=== PATIENT | female | born 1975 | race African-American/Black ===

== ENCOUNTER 2020-08-29 10:22 | Inpatient (IN) | payer BC, MEDICARE ==
[~2020-08-29] VITALS: Ht 167.6 cm; Wt 95.5 kg
--- NOTE | 2020-08-29 10:54 | PHYS DOC ---
General Adult EDM: Chief Complaint: SHORTNESS OF BREATH HPI: HPI: History obtained from the patient. Patient is a 45-year-old female with history of sarcoidosis who presents with chief complaint of progressive shortness of breath over the past several days. She notes that she is more short of breath than usual with exertion. She denies any shortness of breath at rest. Denies chest pain. Denies syncope. States this feels similar to previous sarcoidosis flares. She does take prednisone daily. She states when this occurs she typically needs higher steroid dosing. She does note that she recently traveled from [place] to visit family in the area. She is from [place] were all of her cares received. Denies any history of blood clots in the legs or lungs. Denies any swelling to the legs. Denies any known exposure to coronavirus. Denies fevers. Notes a dry cough but states this is baseline for her. Denies any abdominal pain. Denies syncope. Denies any cardiac history or invasive cardiac disease. No nausea no vomiting. Denies diaphoresis. No other complaints. Review of Systems: Review of Systems: Constitutional: Denies fever or chills. [] Eyes: Denies change in visual acuity. [] HENT: Denies nasal congestion or sore throat. [] Respiratory: Positive shortness of breath Cardiovascular: Denies chest pain or edema. [] GI: Denies abdominal pain, nausea, vomiting, bloody stools or diarrhea. [] : Denies dysuria. [] Musculoskeletal: Denies back pain or joint pain. [] Integument: Denies rash. [] Neurologic: Denies headache, focal weakness or sensory changes. [] Endocrine: Denies polyuria or polydipsia. [] Lymphatic: Denies swollen glands. [] Psychiatric: Denies depression or anxiety. [] Heart Score: Risk Factors: Risk Factors: DM, Current or recent (<one month) smoker, HTN, HLP, family history of CAD, obesity. Risk Scores: Score 0 - 3: 2.5% MACE over next 6 weeks - Discharge Home Score 4 - 6: 20.3% MACE over next 6 weeks - Admit for Clinical Observation Score 7 - 10: 72.7% MACE over next 6 weeks - Early Invasive Strategies Physical Exam: PE: Constitutional: Well developed, well nourished, no acute distress, non-toxic appearance. [] HENT: Normocephalic, atraumatic, bilateral external ears normal, oropharynx moist, no oral exudates, nose normal. [] Eyes: PERRLA, EOMI, conjunctiva normal, no discharge. [] Neck: Normal range of motion, no tenderness, supple, no stridor. [] Cardiovascular:Heart rate regular rhythm, no murmur [] Lungs & Thorax: Slight rhonchi noted in the right lung navarro. No wheezes appreciated. Not tachypneic. Speaking in full sentences. 73% on room air. Abdomen: soft, no tenderness, no masses, no pulsatile masses. [] Skin: Warm, dry, no erythema, no rash. [] Back: No tenderness, no CVA tenderness. [] Extremities: No tenderness, no cyanosis, no clubbing, ROM intact, no edema. [] Neurologic: Alert and oriented X 3, normal motor function, normal sensory function, no focal deficits noted. [] Psychologic: Affect normal, judgement normal, mood normal. [] Current Patient Data: Labs: Laboratory Tests Test 08/29/20 10:47 White Blood Count 19.5 x10^3/uL Red Blood Count 3.42 x10^6/uL Hemoglobin 11.3 g/dL Hematocrit 32.2 % Mean Corpuscular Volume 94 fL Mean Corpuscular Hemoglobin 33 pg Mean Corpuscular Hemoglobin Concent 35 g/dL Red Cell Distribution Width 19.8 % Platelet Count 334 x10^3/uL Neutrophils (%) (Auto) 78 % Lymphocytes (%) (Auto) 7 % Monocytes (%) (Auto) 12 % Eosinophils (%) (Auto) 2 % Basophils (%) (Auto) 1 % Neutrophils # (Auto) 15.3 x10^3/uL Lymphocytes # (Auto) 1.3 x10^3/uL Monocytes # (Auto) 2.4 x10^3/uL Eosinophils # (Auto) 0.4 x10^3/uL Basophils # (Auto) 0.1 x10^3/uL Segmented Neutrophils % 81 % Band Neutrophils % 1 % Lymphocytes % 7 % Monocytes % 11 % Nucleated Red Blood Cells 2 Platelet Estimate Adequate Polychromasia Mod Poikilocytosis Slight Anisocytosis Mod Target Cells Mod Schistocytes Few Sodium Level 140 mmol/L Potassium Level 3.4 mmol/L Chloride Level 102 mmol/L Carbon Dioxide Level 28 mmol/L Anion Gap 10 Blood Urea Nitrogen 19 mg/dL Creatinine 1.3 mg/dL Estimated GFR (Cockcroft-Gault) 53.4 BUN/Creatinine Ratio 15 Glucose Level 140 mg/dL Lactic Acid Level 2.0 mmol/L Calcium Level 8.7 mg/dL Total Bilirubin 2.8 mg/dL Aspartate Amino Transf (AST/SGOT) 31 U/L Alanine Aminotransferase (ALT/SGPT) 37 U/L Alkaline Phosphatase 72 U/L Troponin I Quantitative 0.162 ng/mL XE-Ocl-M-Type Natriuretic Peptide 6540 pg/mL Total Protein 8.1 g/dL Albumin 3.4 g/dL Albumin/Globulin Ratio 0.7 Current Medications Medications (Trade) Dose Ordered Sig/Jan Route PRN Reason Start Time Stop Time Status Last Admin Dose Admin Sodium Chloride 1,000 ml @ 1,000 mls/hr 1X ONCE IV 08/29/20 11:30 08/29/20 12:29 DC Iohexol (Omnipaque 350 Mg/ml) 75 ml 1X ONCE IV 08/29/20 11:45 08/29/20 11:46 DC 08/29/20 11:47 Info (CONTRAST GIVEN -- Rx MONITORING) 1 each PRN DAILY PRN MC SEE COMMENTS 08/29/20 11:45 08/31/20 11:44 Vancomycin HCl 2 gm/Sodium Chloride 500 ml @ 250 mls/hr 1X ONCE IV 08/29/20 13:00 08/29/20 14:59 Cefepime HCl (Maxipime) 1 gm 1X ONCE IVP 08/29/20 12:45 08/29/20 12:46 Vital Signs: Vital Signs Date Time Temp Pulse Resp B/P (MAP) Pulse Ox O2 Delivery O2 Flow Rate FiO2 08/29/20 11:07 98.8 125 20 133/59 (83) 73 Room Air 98.8 EKG: EKG: [] EKG consistent with sinus tachycardia. Ventricular rate of 121 bpm. [place] normal. Q waves noted in lead III. No acute ST segment elevation appreciated. Radiology/Procedures: Radiology/Procedures: [facility] [address] [place] [address] IMAGING REPORT Signed PATIENT: NOELLE OBREGON ACCOUNT: [id number] : 1975 LOCATION: ER AGE: 45 SEX: F EXAM STATUS: REG ER ORD. PHYSICIAN: WILFREDO ELY DO REASON: SOB, recent travel. concern for PE PROCEDURE: CT ANGIOGRAPHY CHEST Exam performed: CT pulmonary angiogram of the chest with contrast. Date: 08/29/2020. Comparison:One view chest from earlier today Indication: Shortness of breath, recent travel, concern for PE Technique: Contiguous helical acquisitions are obtained through the chest during intravenous administration of [ 75 ] cc of [ Omnipaque 350 ] . [Sagittal and coronal MIP images were obtained and reviewed Findings: The study is somewhat limited due to motion blur and poor inspiratory effort. The structures at the thoracic inlet including both lobes of the thyroid gland appear normal. Pulmonary arterial opacification is adequate to evaluate for pulmonary embolus. There is no evidence for pulmonary embolism. The apparent cardiomegaly could be accentuated due to poor inspiration. No pericardial effusion is seen. No mediastinal or hilar lymphadenopathy is seen. Hazy groundglass opacities are seen in both upper lobes, greater on the right as well as in both lower lobes. There is a calcified nodule in the right upper lobe perhaps related to remote granulomatous infection. There is no pleural effusion or pneumothorax. Upper abdominal structures appear unremarkable. Osseous structures appear intact. Impression: 1. Study is negative for pulmonary embolism. 2. Diffuse groundglass opacities scattered throughout both lungs as outlined above. PQRS Compliance Statement: One or more of the following individualized dose reduction techniques were utilized for this examination: 1. Automated exposure control 2. Adjustment of the mA and/or kV according to patient size 3. Use of iterative reconstruction technique Electronically signed by: Ramona Louis MD (08/29/2020 12:08 PM) [facility] DICTATED and SIGNED BY: RAMONA LOUIS MD DATE: 08/29/20 1208 [] Course & Med Decision Making: Course & Med Decision Making Pertinent Labs and Imaging studies reviewed. (See chart for details) [] Patient is a very pleasant 45-year-old female who presents with chief complaint of exertional shortness of breath. She does note a history of sarcoidosis but states this feels worse than usual. Initial oxygenation notable for 73% on room air. She does not use oxygen at home but did improve to 96% on 2 L nasal cannula. No wheezes appreciated on auscultation. Chest x-ray does show concern for bilateral infiltrates. She does state chronic prednisone for sarcoidosis. Given the potential for immunocompromisation vancomycin and cefepime will be administered. Blood cultures obtained and pending. She does have an elevated troponin in the setting of APRIL. This could be related to her current infectious state and is likely type II NSTEMI versus acute coronary event. She denies any chest pain. Fluids to be administered. She remains hemodynamically and clinically stable on 2 L nasal cannula. Patient will be hospitalized for further care. COVID swab obtained and pending. COVID-19 CRITERIA: The patient was evaluated during the global COVID-19 pandemic, and that diagnosis was suspected/considered upon their initial presentation. Their evaluation, treatment and testing was consistent with current guidelines for patients who present with complaints or symptoms that may be related to COVID-19. Dragabbie Disclaimer: Dragon Disclaimer: This electronic medical record was generated, in whole or in part, using a voice recognition dictation system. Departure Departure Impression: Primary Impression: Community acquired pneumonia Qualified Codes: J18.9 - Pneumonia, unspecified organism Additional Impressions: Sarcoidosis NSTEMI (non-ST elevated myocardial infarction) APRIL (acute kidney injury) Disposition: ADMITTED INPATIENT Condition: STABLE Referrals: UNKNOWN PCP NAME (PCP) WILFREDO ELY DO Aug 29, 2020 10:54
[2020-08-29 11:10] LABS: CALCIUM 8.7 mg/dL (8.5-10.1); CREATININE 1.3 mg/dL (0.6-1.0); GFR 53.4; POTASSIUM 3.4 mmol/L (3.5-5.1)
[2020-08-29 11:14] LABS: BASO # 0.1 x10^3/uL (0.0-0.2); BASO % 1 % (0-3); EOS # 0.4 x10^3/uL (0.0-0.7); EOS % 2 % (0-3); HEMATOCRIT 32.2 % (36.0-47.0); HEMOGLOBIN 11.3 g/dL (12.0-15.5); LYMPH # 1.3 x10^3/uL (1.0-4.8); LYMPH % 7 % (24-48); MEAN CORPUSCULAR HEMOGLOBIN 33 pg (25-35); MEAN CORPUSCULAR HGB CONC 35 g/dL (31-37); MEAN CORPUSCULAR VOLUME 94 fL (79-100); MONO # 2.4 x10^3/uL (0.0-1.1); MONO % 12 % (0-9); NEUT # 15.3 x10^3/uL (1.8-7.7); NEUT % 78 % (31-73); PLATELET COUNT 334 x10^3/uL (140-400); RED BLOOD COUNT 3.42 x10^6/uL (3.50-5.40); RED CELL DISTRIBUTION WIDTH 19.8 % (11.5-14.5); WHITE BLOOD COUNT 19.5 x10^3/uL (4.0-11.0)
[2020-08-29 11:16] LABS: ALBUMIN 3.4 g/dL (3.4-5.0); ALBUMIN/GLOBULIN RATIO 0.7 (1.0-1.7); TOTAL BILIRUBIN 2.8 mg/dL (0.2-1.0); TOTAL PROTEIN 8.1 g/dL (6.4-8.2)
--- NOTE | 2020-08-29 11:23 | RAD ---
Exam performed: One view chest HISTORY: Shortness of breath. DATE OF SERVICE: 08/29/2020. COMPARISON: None available FINDINGS: Heart size and mediastinal silhouette is within limits of normal. Pulmonary vascularity appears unremarkable. Diffuse bilateral perihilar airspace opacities are seen. There are diffuse prominent interstitial markings in both lungs. No pleural effusion or pneumothorax is seen. IMPRESSION: Diffuse bilateral perihilar airspace and interstitial opacities likely infiltrates. Electronically signed by: Ramona Louis MD (08/29/2020 11:20 AM) [facility]
[2020-08-29] MEDS ORDERED: IV NORMAL SALINE 1000ML BAG 1,000 ML IV ONE (11:30)
--- NOTE | 2020-08-29 11:38 | EKG ---
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
[2020-08-29 11:44] LABS: % BANDS 1 % (0-9); % LYMPHS 7 % (24-48); % MONOS 11 % (0-10); NUCLEATED RBC 2
[2020-08-29 11:45] LABS: % SEGS 81 % (35-66); PLT ESTIMATE ADEQUATE (ADEQUATE)
[2020-08-29] MEDS ORDERED: CONTRAST GIVEN. MC PRN (11:45)
[2020-08-29] MEDS ORDERED: IOHEXOL 350 MG/ML 100 ML VIAL. IV ONE (11:45)
[2020-08-29 11:49] LABS: POIKILOCYTOSIS SLIGHT; POLYCHROMASIA MOD
[2020-08-29 11:50] LABS: TARGET CELLS MOD
[2020-08-29 12:03] LABS: SCHISTOCYTES FEW
--- NOTE | 2020-08-29 12:11 | RAD ---
Exam performed: CT pulmonary angiogram of the chest with contrast. Date: 08/29/2020. Comparison:One view chest from earlier today Indication: Shortness of breath, recent travel, concern for PE Technique: Contiguous helical acquisitions are obtained through the chest during intravenous administration of [ 75 ] cc of [ Omnipaque 350 ] . [Sagittal and coronal MIP images were obtained and reviewed Findings: The study is somewhat limited due to motion blur and poor inspiratory effort. The structures at the thoracic inlet including both lobes of the thyroid gland appear normal. Pulmonary arterial opacification is adequate to evaluate for pulmonary embolus. There is no evidence for pulmonary embolism. The apparent cardiomegaly could be accentuated due to poor inspiration. No pericardial effusion is seen. No mediastinal or hilar lymphadenopathy is seen. Hazy groundglass opacities are seen in both upper lobes, greater on the right as well as in both lower lobes. There is a calcified nodule in the right upper lobe perhaps related to remote granulomatous infection. There is no pleural effusion or pneumothorax. Upper abdominal structures appear unremarkable. Osseous structures appear intact. Impression: 1. Study is negative for pulmonary embolism. 2. Diffuse groundglass opacities scattered throughout both lungs as outlined above. PQRS Compliance Statement: One or more of the following individualized dose reduction techniques were utilized for this examination: 1. Automated exposure control 2. Adjustment of the mA and/or kV according to patient size 3. Use of iterative reconstruction technique Electronically signed by: Ramona Louis MD (08/29/2020 12:08 PM) [facility]
[2020-08-29] MEDS ORDERED: ONDANSETRON PF 4 MG/2 ML VIAL. IV PRN ×2 (12:45→13:00)
[2020-08-29] MEDS ORDERED: CEFEPIME HCL IV Push 1 GM VIAL. IVP ONE (12:45)
[2020-08-29] MEDS ORDERED: MORPHINE SULFATE 4 MG/ML VIAL. IV PRN (12:45)
--- NOTE | 2020-08-29 12:58 | PDOC1 ---
History and Physical Date of Admission Date of Admission DATE: 08/29/20 TIME: 12:50 Identification/Chief Complaint Chief Complaint Shortness of breath Source Source: Patient History of Present Illness History of Present Illness Ms Sorto is a 45yo F w/ PMHx sarcoidosis, HTN who presents with chief complaint of progressive shortness of breath over the past several days. She notes that she is more short of breath than usual with exertion. She denies any shortness of breath at rest. Denies chest pain. Denies syncope. States this feels similar to previous sarcoidosis flares. She does take prednisone daily. She does note that she recently traveled from [place] to visit family in the area, she drove herself. No history of VTE. Denies any swelling to the legs. Denies any known exposure to coronavirus. Denies fevers.Denies any abdominal pain. Denies syncope. D enies any cardiac history or invasive cardiac disease. No nausea no vomiting. Denies diaphoresis. No other complaints. Hypoxic to 73% on room air in ED. She does not wear home O2. CXR with diffuse bilateral interstitial opacities. CTPA negative for PE, did show diffuse groundglass opacities scattered throughout both lungs. Labs significant for WBC 19.5, Hb 11.3, platelets 334, BNP 6540, troponin 0.162, bilirubin 2.8, NA 140, K3.4, BUN 11, CR 1.3, glucose 140, lactic acid 2, albumin 3.4 EKG consistent with sinus tachycardia. Ventricular rate of 121 bpm. [place] normal. Q waves noted in lead III. No acute ST segment elevation appreciated. Admitted for further care Past Medical History Cardiovascular: HTN Pulmonary: Other (Sarcoidosis) Current Problem List Problem List Problems Medical Problems: (1) APRIL (acute kidney injury) Status: Acute (2) Community acquired pneumonia Status: Acute (3) NSTEMI (non-ST elevated myocardial infarction) Status: Acute (4) Sarcoidosis Status: Acute Current Medications Current Medications Current Medications Sodium Chloride 1,000 ml @ 1,000 mls/hr 1X ONCE IV ; Start 08/29/20 at 11:30; Stop 08/29/20 at 12:29; Status DC Iohexol (Omnipaque 350 Mg/ml) 75 ml 1X ONCE IV Last administered on 08/29/20at 11:47; Start 08/29/20 at 11:45; Stop 08/29/20 at 11:46; Status DC Info (CONTRAST GIVEN -- Rx MONITORING) 1 each PRN DAILY PRN MC SEE COMMENTS; Start 08/29/20 at 11:45; Stop 08/31/20 at 11:44 Vancomycin HCl 2 gm/Sodium Chloride 500 ml @ 250 mls/hr 1X ONCE IV ; Start 08/29/20 at 13:00; Stop 08/29/20 at 14:59 Cefepime HCl (Maxipime) 1 gm 1X ONCE IVP ; Start 08/29/20 at 12:45; Stop 08/29/20 at 12:46; Status DC Ondansetron HCl (Zofran) 4 mg PRN Q8HRS PRN IV NAUSEA/VOMITING; Start 08/29/20 at 12:45; Stop 08/30/20 at 12:44 Morphine Sulfate (Morphine Sulfate) 4 mg PRN Q2HR PRN IV PAIN; Start 08/29/20 at 12:45; Stop 08/30/20 at 12:44 Allergies Allergies: Coded Allergies: Sulfa (Sulfonamide Antibiotics) (Verified Allergy, Intermediate, 08/29/20) peanut (Verified Allergy, Intermediate, 08/29/20) ROS General: YES: Fatigue, Malaise; No: Chills, Night Sweats, Appetite, Other PSYCHOLOGICAL ROS: YES: Anxiety; No: Behavioral Disorder, Concentration difficultie, Decreased libido, Depression, Disorientation, Hallucinations, Hostility, Irritablity, Memory difficulties, Mood Swings, Obsessive thoughts, Physical abuse, Sexual abuse, Sleep disturbances, Suicidal ideation, Other Eyes: No Blurry vision, No Decreased vision, No Double vision, No Dry eyes, No Excessive tearing, No Eye Pain, No Itchy Eyes, No Loss of vision, No Photophobia, No Scotomata, No Uses contacts, No Uses glasses, No Other HEENT: No: Heacaches, Visual Changes, Hearing change, Nasal congestion, Nasal discharge, Oral lesions, Sinus pain, Sore Throat, Epistaxis, Sneezing, Snoring, Tinnitus, Vertigo, Vocal changes, Other ALLERGY AND IMMUNOLOGY: No: Hives, Insect Bite Sensitivity, Itchy/Watery Eyes, Nasal Congestion, Post Nasal Drip, Seasonal Allergies, Other Hematological and Lymphatic: No: Bleeding Problems, Blood Clots, Blood Transfusions, Brusing, Night Sweats, Pallor, Swollen Lymph Nodes, Other ENDOCRINE: No: Breast Changes, Galactorrhea, Hair Pattern Changes, Hot Flashes, Malaise/lethargy, Mood Swings, Palpitations, Polydipsia/polyuria, Skin Changes, Temperature Intolerance, Unexpected Weight Changes, Other Breast: No New/Changing Breast Lumps, No Nipple changes, No Nipple discharge, No Other Respiratory: YES: Cough, Shortness of breath, SOB with excertion, Tachypnea, Wheezing; No: Hemoptysis, Orthopnea, Pleuritic Pain, Sputum Changes, Stridor, Other Cardiovascular: No Chest Pain, No Palpitations, No Orthopnea, No Paroxysmal Noc. Dyspnea, No Edema, No Lt Headedness, No Other Gastrointestinal: No Nausea, No Vomiting, No Abdominal Pain, No Diarrhea, No Constipation, No Melena, No Hematochezia, No Other Genitourinary: No Dysuria, No Frequency, No Incontinence, No Hematuria, No Retention, No Discharge, No Urgency, No Pain, No Flank Pain, No Other, No , No , No , No , No , No , No Musculoskeletal: No Gait Disturbance, No Joint Pain, No Joint Stiffness, No Joint Swelling, No Muscle Pain, No Muscular Weakness, No Pain In:, No Swelling In:, No Other Neurological: No Behavorial Changes, No Bowel/Bladder ControlChng, No Confusion, No Dizziness, No Gait Disturbance, No Headaches, No Impaired Coord/balance, No Memory Loss, No Numbness/Tingling, No Seizures, No Speech Problems, No Tremors, No Visual Changes, No Weakness, No Other Skin: No Dry Skin, No Eczema, No Hair Changes, No Lumps, No Mole Changes, No Mottling, No Nail Changes, No Pruritus, No Rash, No Skin Lesion Changes, No Other, No Acne Physical Exam General: Alert, Oriented X3, Cooperative, moderate distress HEENT: Atraumatic, PERRLA, EOMI, Mucous membr. moist/pink Lungs: Other (coarse rhonchi and fine crackles bilaterally) Heart: S1S2, RRR, no thrills, no rubs, no gallops, no murmurs Abdomen: Normal bowel sounds, Soft, No tenderness, No hepatosplenomegaly, No m asses Rectal Exam: not examined Extremities: No clubbing, No cyanosis, No edema, Normal pulses, No tenderness/swelling Skin: No rashes, No breakdown, No significant lesion Neuro: Normal gait, Normal speech, Strength at 5/5 X4 ext, Normal tone, Sensation intact, Cranial nerves 3-12 NL, Reflexes 2+ Psych/Mental Status: Mental status NL, Mood NL Vitals Vitals Vital Signs Date Time Temp Pulse Resp B/P (MAP) Pulse Ox O2 Delivery O2 Flow Rate FiO2 08/29/20 11:07 98.8 125 20 133/59 (83) 73 Room Air 98.8 Labs Labs Laboratory Tests Test 08/29/20 10:47 White Blood Count 19.5 x10^3/uL (4.0-11.0) Red Blood Count 3.42 x10^6/uL (3.50-5.40) Hemoglobin 11.3 g/dL (12.0-15.5) Hematocrit 32.2 % (36.0-47.0) Mean Corpuscular Volume 94 fL (79-100) Mean Corpuscular Hemoglobin 33 pg (25-35) Mean Corpuscular Hemoglobin Concent 35 g/dL (31-37) Red Cell Distribution Width 19.8 % (11.5-14.5) Platelet Count 334 x10^3/uL (140-400) Neutrophils (%) (Auto) 78 % (31-73) Lymphocytes (%) (Auto) 7 % (24-48) Monocytes (%) (Auto) 12 % (0-9) Eosinophils (%) (Auto) 2 % (0-3) Basophils (%) (Auto) 1 % (0-3) Neutrophils # (Auto) 15.3 x10^3/uL (1.8-7.7) Lymphocytes # (Auto) 1.3 x10^3/uL (1.0-4.8) Monocytes # (Auto) 2.4 x10^3/uL (0.0-1.1) Eosinophils # (Auto) 0.4 x10^3/uL (0.0-0.7) Basophils # (Auto) 0.1 x10^3/uL (0.0-0.2) Segmented Neutrophils % 81 % (35-66) Band Neutrophils % 1 % (0-9) Lymphocytes % 7 % (24-48) Monocytes % 11 % (0-10) Nucleated Red Blood Cells 2 Platelet Estimate Adequate (ADEQUATE) Polychromasia Mod Poikilocytosis Slight Anisocytosis Mod Target Cells Mod Schistocytes Few Sodium Level 140 mmol/L (136-145) Potassium Level 3.4 mmol/L (3.5-5.1) Chloride Level 102 mmol/L (98-107) Carbon Dioxide Level 28 mmol/L (21-32) Anion Gap 10 (6-14) Blood Urea Nitrogen 19 mg/dL (7-20) Creatinine 1.3 mg/dL (0.6-1.0) Estimated GFR (Cockcroft-Gault) 53.4 BUN/Creatinine Ratio 15 (6-20) Glucose Level 140 mg/dL (70-99) Lactic Acid Level 2.0 mmol/L (0.4-2.0) Calcium Level 8.7 mg/dL (8.5-10.1) Total Bilirubin 2.8 mg/dL (0.2-1.0) Aspartate Amino Transf (AST/SGOT) 31 U/L (15-37) Alanine Aminotransferase (ALT/SGPT) 37 U/L (14-59) Alkaline Phosphatase 72 U/L (46-116) Troponin I Quantitative 0.162 ng/mL (0.000-0.055) MC-Iwc-T-Type Natriuretic Peptide 6540 pg/mL (0-124) Total Protein 8.1 g/dL (6.4-8.2) Albumin 3.4 g/dL (3.4-5.0) Albumin/Globulin Ratio 0.7 (1.0-1.7) Laboratory Tests Test 08/29/20 10:47 White Blood Count 19.5 x10^3/uL (4.0-11.0) Red Blood Count 3.42 x10^6/uL (3.50-5.40) Hemoglobin 11.3 g/dL (12.0-15.5) Hematocrit 32.2 % (36.0-47.0) Mean Corpuscular Volume 94 fL (79-100) Mean Corpuscular Hemoglobin 33 pg (25-35) Mean Corpuscular Hemoglobin Concent 35 g/dL (31-37) Red Cell Distribution Width 19.8 % (11.5-14.5) Platelet Count 334 x10^3/uL (140-400) Neutrophils (%) (Auto) 78 % (31-73) Lymphocytes (%) (Auto) 7 % (24-48) Monocytes (%) (Auto) 12 % (0-9) Eosinophils (%) (Auto) 2 % (0-3) Basophils (%) (Auto) 1 % (0-3) Neutrophils # (Auto) 15.3 x10^3/uL (1.8-7.7) Lymphocytes # (Auto) 1.3 x10^3/uL (1.0-4.8) Monocytes # (Auto) 2.4 x10^3/uL (0.0-1.1) Eosinophils # (Auto) 0.4 x10^3/uL (0.0-0.7) Basophils # (Auto) 0.1 x10^3/uL (0.0-0.2) Segmented Neutrophils % 81 % (35-66) Band Neutrophils % 1 % (0-9) Lymphocytes % 7 % (24-48) Monocytes % 11 % (0-10) Nucleated Red Blood Cells 2 Platelet Estimate Adequate (ADEQUATE) Polychromasia Mod Poikilocytosis Slight Anisocytosis Mod Target Cells Mod Schistocytes Few Sodium Level 140 mmol/L (136-145) Potassium Level 3.4 mmol/L (3.5-5.1) Chloride Level 102 mmol/L (98-107) Carbon Dioxide Level 28 mmol/L (21-32) Anion Gap 10 (6-14) Blood Urea Nitrogen 19 mg/dL (7-20) Creatinine 1.3 mg/dL (0.6-1.0) Estimated GFR (Cockcroft-Gault) 53.4 BUN/Creatinine Ratio 15 (6-20) Glucose Level 140 mg/dL (70-99) Lactic Acid Level 2.0 mmol/L (0.4-2.0) Calcium Level 8.7 mg/dL (8.5-10.1) Total Bilirubin 2.8 mg/dL (0.2-1.0) Aspartate Amino Transf (AST/SGOT) 31 U/L (15-37) Alanine Aminotransferase (ALT/SGPT) 37 U/L (14-59) Alkaline Phosphatase 72 U/L (46-116) Troponin I Quantitative 0.162 ng/mL (0.000-0.055) KM-Bew-A-Type Natriuretic Peptide 6540 pg/mL (0-124) Total Protein 8.1 g/dL (6.4-8.2) Albumin 3.4 g/dL (3.4-5.0) Albumin/Globulin Ratio 0.7 (1.0-1.7) Images Images CXR: Heart size and mediastinal silhouette is within limits of normal. Pulmonary vascularity appears unremarkable. Diffuse bilateral perihilar airspace opacities are seen. There are diffuse prominent interstitial markings in both lungs. No pleural effusion or pneumothorax is seen. IMPRESSION: Diffuse bilateral perihilar airspace and interstitial opacities likely infiltrates. CTPA: The study is somewhat limited due to motion blur and poor inspiratory effort. The structures at the thoracic inlet including both lobes of the thyroid gland appear normal. Pulmonary arterial opacification is adequate to evaluate for pulmonary embolus. There is no evidence for pulmonary embolism. The apparent cardiomegaly could be accentuated due to poor inspiration. No pericardial effusion is seen. No mediastinal or hilar lymphadenopathy is seen. Hazy groundglass opacities are seen in both upper lobes, greater on the right as well as in both lower lobes. There is a calcified nodule in the right upper lobe perhaps related to remote granulomatous infection. There is no pleural effusion or pneumothorax. Upper abdominal structures appear unremarkable. Osseous structures appear intact. Impression: 1. Study is negative for pulmonary embolism. 2. Diffuse groundglass opacities scattered throughout both lungs as outlined above. VTE Prophylaxis Ordered VTE Prophylaxis Devices: Yes VTE Pharmacological Prophylaxi: Yes Assessment/Plan Assessment/Plan A/P: Acute hypoxic respiratory failure - likely 2/2 sarcoidosis flare +/- community acquired bacterial pneumonia, high risk for likely gram negatives. Wean O2 as tolerated Sarcoidosis - with flare. Will give IV steroids, cover with antibiotis. Consult pulm Chest pain - atypical for cardiac pain, though with elevated troponin will trend. Likely 2/2 sarcoidosis Elevated troponin - likely demand ischemia given profound hypoxia. Will trend HTN - cont BB and CCB home meds Hypokalemia - replace,check mag level APRIL - likely vasomotor nephropathy, will hydrate. Sepsis - with Leukocytosis - with tachycardia meets SIRS criteria, likely pulmonary infection. Will give IVF for SEPSIS, POA and empiric antibiotics Anemia - will check iron studies, likely of chronic disease Low suspicion for COVID 19 FEN - General diet PPX - lovenox FULL CODE DIspo - inpatient Justifications for Admission Other Justification ROX CHARLTON MD Aug 29, 2020 12:58
[2020-08-29] MEDS ORDERED: VANCOMYCIN 2 GM in IV NORMAL SALINE 500ML BAG 500 ML IV ONE (13:00)
[2020-08-29] MEDS ORDERED: POTASSIUM BICARB 10 MEQ EFFERVESCENT TABLET. PO ONE (13:00)
[2020-08-29] MEDS: methylPREDNISolone SOD SUCC PF 40 MG/ML VIAL. IV SCH ×3 (13:19→22:31)
--- NOTE | 2020-08-29 17:06 | NUR ---
Pt arrived on unit from ED via bed at 1650. Pt oriented to room and call light, denying pain at this time. Pt on 3L NC. Will monitor pt closely.
[2020-08-29] MEDS ORDERED: PRED5TAB PO (17:41)
[2020-08-29] MEDS ORDERED: METO-247 PO (17:41)
[2020-08-29] MEDS ORDERED: DILT240T8 PO (17:41)
[2020-08-29] MEDS ORDERED: XOPENEX0.63 MG/3 NEB (17:42)
[2020-08-29] MEDS ORDERED: LEVA1.2527 NEB (17:44)
[2020-08-29] MEDS ORDERED: NORE0.357 PO (17:51)
[2020-08-29 17:53] VITALS: BP 153/87
--- NOTE | 2020-08-29 18:05 | NUR ---
This RN notified Dr. Rick of positive sepsis screening. Orders received to hold off on IV fluids until he sees patient in person. Will hold fluids until further orders received.
[2020-08-29] MEDS ORDERED: FLU VACC QS 2020-21(6MOS+)/PF 0.5 ML SYRINGE. VAX IM ONE (18:30)
[2020-08-29] MEDS ORDERED: METOPROLOL TARTRATE 5 MG/5 ML VIAL. IVP PRN (18:45)
[2020-08-29] MEDS ORDERED: ALBUTEROL SULFATE 2.5 MG/3 ML NEBU. NEB PRN (18:45)
[2020-08-29 19:00] VITALS: BP 143/81
[2020-08-29] MEDS: METOPROLOL SUCC 24HR ER 100 MG TAB.ER.24H. PO SCH (19:13)
[2020-08-29] MEDS: IV NORMAL SALINE 1000ML BAG 1,000 ML IV SCH ×2 (19:13→22:57)
[2020-08-29] MEDS: guaiFENesin DM 200MG/20MG 10 ML SYRUP PO PRN (22:23)
[2020-08-29] MEDS: ENOXAPARIN 40 MG/0.4 ML SYRINGE. SQ SCH ×2 (22:24→22:50)
[2020-08-29 22:58] VITALS: BP 129/75
[2020-08-29] MEDS ORDERED: MAGNESIUM SULFATE 2GM 50 ML IV ONE (23:00)
[2020-08-29 23:03] VITALS: BP 145/79
[2020-08-30] MEDS: IV NORMAL SALINE 1000ML BAG 1,000 ML IV SCH (05:01)
[2020-08-30] MEDS: methylPREDNISolone SOD SUCC PF 40 MG/ML VIAL. IV SCH ×4 (05:01→23:28)
[2020-08-30 07:15] VITALS: BP 125/78
[2020-08-30 07:50] LABS: BASO % 0 % (0-3); EOS % 0 % (0-3); HEMATOCRIT 28.6 % (36.0-47.0); LYMPH # 0.4 x10^3/uL (1.0-4.8); LYMPH % 3 % (24-48); MEAN CORPUSCULAR HEMOGLOBIN 33 pg (25-35); MEAN CORPUSCULAR HGB CONC 35 g/dL (31-37); MEAN CORPUSCULAR VOLUME 94 fL (79-100); MONO # 0.6 x10^3/uL (0.0-1.1); MONO % 4 % (0-9); NEUT # 13.3 x10^3/uL (1.8-7.7); NEUT % 93 % (31-73); PLATELET COUNT 310 x10^3/uL (140-400); RED BLOOD COUNT 3.05 x10^6/uL (3.50-5.40); RED CELL DISTRIBUTION WIDTH 19.7 % (11.5-14.5); WHITE BLOOD COUNT 14.4 x10^3/uL (4.0-11.0)
[2020-08-30 07:51] LABS: CALCIUM 8.2 mg/dL (8.5-10.1); GFR 72.2; POTASSIUM 4.7 mmol/L (3.5-5.1)
--- NOTE | 2020-08-30 08:54 | PDOC ---
[employer] PROGRESS NOTE Date of Service DOS: DATE: 08/30/20 TIME: 08:53 Chief Complaint Chief Complaint A/P: Acute hypoxic respiratory failure - likely 2/2 sarcoidosis flare +/- community acquired bacterial pneumonia, high risk for likely gram negatives. Wean O2 as tolerated Sarcoidosis - with flare. Will give IV steroids, cover with antibiotis. Consult pulm Chest pain - atypical for cardiac pain, though with elevated troponin will trend. Likely 2/2 sarcoidosis Elevated troponin - likely demand ischemia given profound hypoxia. Will trend HTN - cont BB and CCB home meds Hypokalemia - replace,check mag level APRIL - likely vasomotor nephropathy, will hydrate. Sepsis - with Leukocytosis - with tachycardia meets SIRS criteria, likely pulmonary infection. Will give IVF for SEPSIS, POA and empiric antibiotics Anemia - will check iron studies, likely of chronic disease Low suspicion for COVID 19 FEN - General diet PPX - lovenox FULL CODE DIspo - inpatient History of Present Illness History of Present Illness Ms Sorto is a 45yo F w/ PMHx sarcoidosis, HTN who presents with chief complaint of progressive shortness of breath over the past several days. She notes that she is more short of breath than usual with exertion. She denies any shortness of breath at rest. Denies chest pain. Denies syncope. States this feels similar to previous sarcoidosis flares. She does take prednisone daily. She does note that she recently traveled from [place] to visit family in the area, she drove herself. No history of VTE. Denies any swelling to the legs. Denies any known exposure to coronavirus. Denies fevers.Denies any abdominal pain. Denies syncope. Denies any cardiac history or invasive cardiac disease. No nausea no vomiting. Denies diaphoresis. No other complaints. Hypoxic to 73% on room air in ED. She does not wear home O2. CXR with diffuse bilateral interstitial opacities. CTPA negative for PE, did show diffuse groundglass opacities scattered throughout both lungs. Labs significant for WBC 19.5, Hb 11.3, platelets 334, BNP 6540, troponin 0.162, bilirubin 2.8, NA 140, K3.4, BUN 11, CR 1.3, glucose 140, lactic acid 2, albumin 3.4 EKG consistent with sinus tachycardia. Ventricular rate of 121 bpm. [place] normal. Q waves noted in lead III. No acute ST segment elevation appreciated. Admitted for further care Afebrile overnight. On less O2. Creatinine improved from 1.3-1.0 Troponin came down to 0.164, CRP returned to 138.8. She symptomatically feels better. WBC 14.4. Still little short of breath, her chest pain is a little better. Vitals/I&O Vitals/I&O: Vital Signs Date Time Temp Pulse Resp B/P (MAP) Pulse Ox O2 Delivery O2 Flow Rate FiO2 08/30/20 07:15 98.1 79 18 125/78 (94) 99 Nasal Cannula 3.0 98.1 I & O0 08/29/20 08/29/20 08/30/20 15:00 23:00 07:00 Intake Total 250 ml Output Total 0 ml Balance 250 ml 0 ml Physical Exam General: Alert, Oriented X3, Cooperative, moderate distress Abdomen: Normal bowel sounds, Soft, No tenderness, No hepatosplenomegaly, No masses Extremities: No clubbing, No cyanosis, No edema, Normal pulses, No tenderness/swelling Skin: No rashes, No breakdown, No significant lesion Labs Labs: Laboratory Tests Test 08/29/20 10:47 08/29/20 13:15 08/29/20 16:35 08/29/20 23:00 White Blood Count 19.5 x10^3/uL (4.0-11.0) Red Blood Count 3.42 x10^6/uL (3.50-5.40) Hemoglobin 11.3 g/dL (12.0-15.5) Hematocrit 32.2 % (36.0-47.0) Mean Corpuscular Volume 94 fL (79-100) Mean Corpuscular Hemoglobin 33 pg (25-35) Mean Corpuscular Hemoglobin Concent 35 g/dL (31-37) Red Cell Distribution Width 19.8 % (11.5-14.5) Platelet Count 334 x10^3/uL (140-400) Neutrophils (%) (Auto) 78 % (31-73) Lymphocytes (%) (Auto) 7 % (24-48) Monocytes (%) (Auto) 12 % (0-9) Eosinophils (%) (Auto) 2 % (0-3) Basophils (%) (Auto) 1 % (0-3) Neutrophils # (Auto) 15.3 x10^3/uL (1.8-7.7) Lymphocytes # (Auto) 1.3 x10^3/uL (1.0-4.8) Monocytes # (Auto) 2.4 x10^3/uL (0.0-1.1) Eosinophils # (Auto) 0.4 x10^3/uL (0.0-0.7) Basophils # (Auto) 0.1 x10^3/uL (0.0-0.2) Segmented Neutrophils % 81 % (35-66) Band Neutrophils % 1 % (0-9) Lymphocytes % 7 % (24-48) Monocytes % 11 % (0-10) Nucleated Red Blood Cells 2 Platelet Estimate Adequate (ADEQUATE) Polychromasia Mod Poikilocytosis Slight Anisocytosis Mod Target Cells Mod Schistocytes Few Sodium Level 140 mmol/L (136-145) Potassium Level 3.4 mmol/L (3.5-5.1) Chloride Level 102 mmol/L (98-107) Carbon Dioxide Level 28 mmol/L (21-32) Anion Gap 10 (6-14) Blood Urea Nitrogen 19 mg/dL (7-20) Creatinine 1.3 mg/dL (0.6-1.0) Estimated GFR (Cockcroft-Gault) 53.4 BUN/Creatinine Ratio 15 (6-20) Glucose Level 140 mg/dL (70-99) Lactic Acid Level 2.0 mmol/L (0.4-2.0) Calcium Level 8.7 mg/dL (8.5-10.1) Magnesium Level 1.6 mg/dL (1.8-2.4) Total Bilirubin 2.8 mg/dL (0.2-1.0) Aspartate Amino Transf (AST/SGOT) 31 U/L (15-37) Alanine Aminotransferase (ALT/SGPT) 37 U/L (14-59) Alkaline Phosphatase 72 U/L (46-116) Troponin I Quantitative 0.162 ng/mL (0.000-0.055) 0.242 ng/mL (0.000-0.055) 0.186 ng/mL (0.000-0.055) 0.164 ng/mL (0.000-0.055) C-Reactive Protein, Quantitative 223.3 mg/L (0-3.3) MZ-[id number]-[id number]-Type Natriuretic Peptide 6540 pg/mL (0-124) Total Protein 8.1 g/dL (6.4-8.2) Albumin 3.4 g/dL (3.4-5.0) Albumin/Globulin Ratio 0.7 (1.0-1.7) Procalcitonin 0.11 ng/mL (0.00-0.10) Iron Level 44 ug/dL (50-170) Total Iron Binding Capacity 221 ug/dL (250-450) Iron Saturation 20 % (15-34) Test 08/30/20 06:35 White Blood Count 14.4 x10^3/uL (4.0-11.0) Red Blood Count 3.05 x10^6/uL (3.50-5.40) Hemoglobin 10.0 g/dL (12.0-15.5) Hematocrit 28.6 % (36.0-47.0) Mean Corpuscular Volume 94 fL (79-100) Mean Corpuscular Hemoglobin 33 pg (25-35) Mean Corpuscular Hemoglobin Concent 35 g/dL (31-37) Red Cell Distribution Width 19.7 % (11.5-14.5) Platelet Count 310 x10^3/uL (140-400) Neutrophils (%) (Auto) 93 % (31-73) Lymphocytes (%) (Auto) 3 % (24-48) Monocytes (%) (Auto) 4 % (0-9) Eosinophils (%) (Auto) 0 % (0-3) Basophils (%) (Auto) 0 % (0-3) Neutrophils # (Auto) 13.3 x10^3/uL (1.8-7.7) Lymphocytes # (Auto) 0.4 x10^3/uL (1.0-4.8) Monocytes # (Auto) 0.6 x10^3/uL (0.0-1.1) Eosinophils # (Auto) 0.0 x10^3/uL (0.0-0.7) Basophils # (Auto) 0.0 x10^3/uL (0.0-0.2) Sodium Level 141 mmol/L (136-145) Potassium Level 4.7 mmol/L (3.5-5.1) Chloride Level 107 mmol/L (98-107) Carbon Dioxide Level 30 mmol/L (21-32) Anion Gap 4 (6-14) Blood Urea Nitrogen 21 mg/dL (7-20) Creatinine 1.0 mg/dL (0.6-1.0) Estimated GFR (Cockcroft-Gault) 72.2 Glucose Level 132 mg/dL (70-99) Calcium Level 8.2 mg/dL (8.5-10.1) Assessment and Plan Assessmemt and Plan Problems Medical Problems: (1) APRIL (acute kidney injury) Status: Acute (2) Community acquired pneumonia Status: Acute (3) NSTEMI (non-ST elevated myocardial infarction) Status: Acute (4) Sarcoidosis Status: Acute Comment Review of Relevant I have reviewed the following items kita (where applicable) has been applied. Medications: Current Medications Medications (Trade) Dose Ordered Sig/Jan Route PRN Reason Start Time Stop Time Status Last Admin Dose Admin Sodium Chloride 1,000 ml @ 1,000 mls/hr 1X ONCE IV 08/29/20 11:30 08/29/20 12:29 DC 08/29/20 13:05 Iohexol (Omnipaque 350 Mg/ml) 75 ml 1X ONCE IV 08/29/20 11:45 08/29/20 11:46 DC 08/29/20 11:47 Vancomycin HCl 2 gm/Sodium Chloride 500 ml @ 250 mls/hr 1X ONCE IV 08/29/20 13:00 08/29/20 14:59 DC 08/29/20 13:05 Cefepime HCl (Maxipime) 1 gm 1X ONCE IVP 08/29/20 12:45 08/29/20 12:46 DC 08/29/20 13:04 Methylprednisolone Sodium Succinate (SOLU-Medrol 40MG VIAL) 60 mg Q6HRS IV 08/29/20 13:00 08/30/20 05:01 Potassium Bicarbonate (Potassium Effervescent Tablet) 40 meq 1X ONCE PO 08/29/20 13:00 08/29/20 13:01 DC 08/29/20 13:20 Sodium Chloride 1,000 ml @ 125 mls/hr Q8H IV 08/29/20 16:00 08/30/20 05:01 Metoprolol Succinate (Toprol Xl) 100 mg DAILY PO 08/29/20 19:00 08/29/20 19:13 Guaifenesin (Robitussin Dm) 10 ml PRN Q6HRS PRN PO COUGH 08/29/20 22:15 08/29/20 22:23 Magnesium Sulfate 50 ml @ 25 mls/hr 1X ONCE IV 08/29/20 23:00 08/30/20 00:59 DC 08/29/20 22:57 Justifications for Admission Other Justification ROX CHARLTON MD Aug 30, 2020 08:54
[2020-08-30] MEDS: NORETHINDRONE 0.35 MG PO SCH (09:00)
[2020-08-30] MEDS: ENOXAPARIN 40 MG/0.4 ML SYRINGE. SQ SCH ×3 (09:00→20:19)
[2020-08-30 09:29] LABS: C-REACTIVE PROTEIN 138.8 mg/L (0-3.3)
[2020-08-30] MEDS: cefTRIAXone IV Push 1 GM VIAL. IVP SCH (09:47)
--- NOTE | 2020-08-30 09:47 | CONS ---
DATE OF CONSULTATION: PULMONARY CONSULTATION ATTENDING PHYSICIAN: Dr. Rick REASON FOR CONSULTATION: Hypoxic respiratory failure, sarcoidosis. HISTORY OF PRESENT ILLNESS: The patient is a 45-year-old who has history of sarcoidosis, diagnosed about 22 years ago in [place] with a lung biopsy. The patient states she has been on prednisone since then. She is down to 5 mg daily. The patient was brought into the hospital after she say that its usual sarcoidosis flareup, which happens once a year. She had shortness of breath. She denies any significant cough, fever, chills, chest pains, no headaches, no nausea, vomiting, no diarrhea, no dysuria. The patient was seen in the Emergency Room and was placed on oxygen at 3 liters. Saturations are 99%, currently on 3 liters. She went to imaging study, which was reviewed by me. There was no evidence of pulmonary embolism. There are diffuse ground glass opacities scattered throughout both lungs with some alveolar type infiltrates in the upper lobes. No pleural effusion or pneumothorax seen. Consultation requested for further evaluation and management. 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 PAST SURGICAL HISTORY: Bronchoscopy with biopsy 22 years ago. ALLERGIES: SULFA AND PEANUT. MEDICATIONS: All reviewed as listed in the MRAD including antibiotic and Lovenox for DVT prophylaxis and IV steroids. SYSTEM REVIEW: Twelve-point system obtained. Pertinent positives discussed in my history of present illness, otherwise noncontributory. All systems that were negative were reviewed as well. SOCIAL HISTORY: Nonsmoker. FAMILY HISTORY: Noncontributory to lungs. PHYSICAL EXAMINATION: Vital signs were reviewed. She is afebrile, pulse ox 99% on 3 liters. Visual exam done due to COVID-19 pandemia. No obvious respiratory distress. No skin rash. No leg edema. LABORATORY AND DIAGNOSTIC DATA: Labs were reviewed. White cell count was 19.5, down to 14.4; hemoglobin 10.0 and platelets are 310. BUN 21 and creatinine 1.0. Troponin was 0.242. IMPRESSION: 1. Acute hypoxic respiratory failure secondary to acute flare up of sarcoidosis/ acute Alveolitis 2. The patient with known sarcoidosis diagnosed 22 years ago with lung biopsy in [place]. She has been on chronic prednisone since then. Her baseline dose recently has been 5 mg daily. She gets flareups once a year and the symptoms are more suggestive of an acute flareup. 3. Abnormal CT chest with ground-glass infiltrates bilaterally, suggestive of acute flareup. No prior imaging study available. 4. Abnormal troponin. May be demand ischemia. 5. No significant tobacco history. RECOMMENDATIONS: 1. Continue with present oxygen and gradually wean down to keep saturation 92 and above. 2. Empiric antibiotic dose. Clinical suspicion for pneumonia is low. We can obtain procalcitonin level and sedimentation rate. 3. Lovenox for DVT prophylaxis. 4. IV steroids. Monitor the response to treatment. 5. As the patient clinically gets better, we will gradually taper to oral prednisone and to a baseline of 5 mg daily. 6. Discussed with RN and we will follow along with you. COLTEN CHAVEZ MD DR: REBECCA/charles JOB#: [id number] / [id number] AARON
[2020-08-30] MEDS: DOXYCYCLINE HYCLATE 100 MG TABLET PO SCH ×2 (09:48→20:19)
[2020-08-30] MEDS: METOPROLOL SUCC 24HR ER 100 MG TAB.ER.24H. PO SCH (09:48)
[2020-08-30 11:14] VITALS: BP 120/65
[2020-08-30 11:28] LABS: % BANDS 4 % (0-9); % LYMPHS 8 % (24-48); % MONOS 1 % (0-10); % SEGS 87 % (35-66); NUCLEATED RBC 13
[2020-08-30 11:29] LABS: PLT ESTIMATE ADEQUATE (ADEQUATE)
[2020-08-30 11:30] LABS: ANISOCYTOSIS SLIGHT; SCHISTOCYTES OCC; TARGET CELLS OCC
[2020-08-30 15:05] VITALS: BP 134/81
[2020-08-30 19:00] VITALS: BP 140/93
[2020-08-30 23:00] VITALS: BP 130/78
[2020-08-31] VITALS (7 sets, daily range): BP systolic 111–128; BP diastolic 68–86
[2020-08-31 05:13] LABS: BASO # 0.1 x10^3/uL (0.0-0.2); BASO % 0 % (0-3); EOS % 0 % (0-3); HEMATOCRIT 29.6 % (36.0-47.0); LYMPH # 0.3 x10^3/uL (1.0-4.8); LYMPH % 1 % (24-48); MEAN CORPUSCULAR HEMOGLOBIN 32 pg (25-35); MEAN CORPUSCULAR HGB CONC 34 g/dL (31-37); MEAN CORPUSCULAR VOLUME 94 fL (79-100); MONO # 0.9 x10^3/uL (0.0-1.1); MONO % 4 % (0-9); NEUT # 23.3 x10^3/uL (1.8-7.7); NEUT % 95 % (31-73); PLATELET COUNT 320 x10^3/uL (140-400); RED BLOOD COUNT 3.14 x10^6/uL (3.50-5.40); RED CELL DISTRIBUTION WIDTH 20.3 % (11.5-14.5); WHITE BLOOD COUNT 24.6 x10^3/uL (4.0-11.0)
[2020-08-31 05:40] LABS: CALCIUM 8.2 mg/dL (8.5-10.1); CREATININE 1.1 mg/dL (0.6-1.0); GFR 64.7; MAGNESIUM 2.4 mg/dL (1.8-2.4)
[2020-08-31] MEDS: methylPREDNISolone SOD SUCC PF 40 MG/ML VIAL. IV SCH ×3 (05:41→22:32)
[2020-08-31] MEDS: guaiFENesin DM 200MG/20MG 10 ML SYRUP PO PRN (05:41)
[2020-08-31] MEDS: NORETHINDRONE 0.35 MG PO SCH (08:19)
[2020-08-31] MEDS: METOPROLOL SUCC 24HR ER 100 MG TAB.ER.24H. PO SCH (08:19)
[2020-08-31] MEDS: DOXYCYCLINE HYCLATE 100 MG TABLET PO SCH (08:19)
[2020-08-31] MEDS: ENOXAPARIN 40 MG/0.4 ML SYRINGE. SQ SCH (08:20)
[2020-08-31] MEDS: cefTRIAXone IV Push 1 GM VIAL. IVP SCH (08:20)
--- NOTE | 2020-08-31 11:58 | PDOC ---
PULMONARY PROGRESS NOTES DATE: 08/31/20 TIME: 11:55 Subjective feels better on 2 litres Vitals Vital Signs Date Time Temp Pulse Resp B/P (MAP) Pulse Ox O2 Delivery O2 Flow Rate FiO2 08/31/20 10:58 97.7 79 17 121/79 (93) 95 Nasal Cannula 2.0 97.7 Comments visual exam done due to COVID suspicion no soa no rash, no edema General: Alert, No acute distress Labs Laboratory Tests Test 08/29/20 13:15 08/29/20 16:35 08/29/20 23:00 08/30/20 06:35 Iron Level 44 ug/dL (50-170) Total Iron Binding Capacity 221 ug/dL (250-450) Iron Saturation 20 % (15-34) Troponin I Quantitative 0.242 ng/mL (0.000-0.055) 0.186 ng/mL (0.000-0.055) 0.164 ng/mL (0.000-0.055) White Blood Count 14.4 x10^3/uL (4.0-11.0) Red Blood Count 3.05 x10^6/uL (3.50-5.40) Hemoglobin 10.0 g/dL (12.0-15.5) Hematocrit 28.6 % (36.0-47.0) Mean Corpuscular Volume 94 fL (79-100) Mean Corpuscular Hemoglobin 33 pg (25-35) Mean Corpuscular Hemoglobin Concent 35 g/dL (31-37) Red Cell Distribution Width 19.7 % (11.5-14.5) Platelet Count 310 x10^3/uL (140-400) Neutrophils (%) (Auto) 93 % (31-73) Lymphocytes (%) (Auto) 3 % (24-48) Monocytes (%) (Auto) 4 % (0-9) Eosinophils (%) (Auto) 0 % (0-3) Basophils (%) (Auto) 0 % (0-3) Neutrophils # (Auto) 13.3 x10^3/uL (1.8-7.7) Lymphocytes # (Auto) 0.4 x10^3/uL (1.0-4.8) Monocytes # (Auto) 0.6 x10^3/uL (0.0-1.1) Eosinophils # (Auto) 0.0 x10^3/uL (0.0-0.7) Basophils # (Auto) 0.0 x10^3/uL (0.0-0.2) Segmented Neutrophils % 87 % (35-66) Band Neutrophils % 4 % (0-9) Lymphocytes % 8 % (24-48) Monocytes % 1 % (0-10) Nucleated Red Blood Cells 13 Platelet Estimate Adequate (ADEQUATE) Large Platelets Few Giant Platelets Few Anisocytosis Slight Target Cells Occ Schistocytes Occ Sodium Level 141 mmol/L (136-145) Potassium Level 4.7 mmol/L (3.5-5.1) Chloride Level 107 mmol/L (98-107) Carbon Dioxide Level 30 mmol/L (21-32) Anion Gap 4 (6-14) Blood Urea Nitrogen 21 mg/dL (7-20) Creatinine 1.0 mg/dL (0.6-1.0) Estimated GFR (Cockcroft-Gault) 72.2 Glucose Level 132 mg/dL (70-99) Calcium Level 8.2 mg/dL (8.5-10.1) C-Reactive Protein, Quantitative 138.8 mg/L (0-3.3) Procalcitonin < 0.10 ng/mL (0.00-0.10) Test 08/31/20 03:43 White Blood Count 24.6 x10^3/uL (4.0-11.0) Red Blood Count 3.14 x10^6/uL (3.50-5.40) Hemoglobin 10.0 g/dL (12.0-15.5) Hematocrit 29.6 % (36.0-47.0) Mean Corpuscular Volume 94 fL (79-100) Mean Corpuscular Hemoglobin 32 pg (25-35) Mean Corpuscular Hemoglobin Concent 34 g/dL (31-37) Red Cell Distribution Width 20.3 % (11.5-14.5) Platelet Count 320 x10^3/uL (140-400) Neutrophils (%) (Auto) 95 % (31-73) Lymphocytes (%) (Auto) 1 % (24-48) Monocytes (%) (Auto) 4 % (0-9) Eosinophils (%) (Auto) 0 % (0-3) Basophils (%) (Auto) 0 % (0-3) Neutrophils # (Auto) 23.3 x10^3/uL (1.8-7.7) Lymphocytes # (Auto) 0.3 x10^3/uL (1.0-4.8) Monocytes # (Auto) 0.9 x10^3/uL (0.0-1.1) Eosinophils # (Auto) 0.0 x10^3/uL (0.0-0.7) Basophils # (Auto) 0.1 x10^3/uL (0.0-0.2) Sodium Level 140 mmol/L (136-145) Potassium Level 5.0 mmol/L (3.5-5.1) Chloride Level 106 mmol/L (98-107) Carbon Dioxide Level 29 mmol/L (21-32) Anion Gap 5 (6-14) Blood Urea Nitrogen 22 mg/dL (7-20) Creatinine 1.1 mg/dL (0.6-1.0) Estimated GFR (Cockcroft-Gault) 64.7 Glucose Level 134 mg/dL (70-99) Calcium Level 8.2 mg/dL (8.5-10.1) Magnesium Level 2.4 mg/dL (1.8-2.4) Laboratory Tests Test 08/31/20 03:43 White Blood Count 24.6 x10^3/uL (4.0-11.0) Red Blood Count 3.14 x10^6/uL (3.50-5.40) Hemoglobin 10.0 g/dL (12.0-15.5) Hematocrit 29.6 % (36.0-47.0) Mean Corpuscular Volume 94 fL (79-100) Mean Corpuscular Hemoglobin 32 pg (25-35) Mean Corpuscular Hemoglobin Concent 34 g/dL (31-37) Red Cell Distribution Width 20.3 % (11.5-14.5) Platelet Count 320 x10^3/uL (140-400) Neutrophils (%) (Auto) 95 % (31-73) Lymphocytes (%) (Auto) 1 % (24-48) Monocytes (%) (Auto) 4 % (0-9) Eosinophils (%) (Auto) 0 % (0-3) Basophils (%) (Auto) 0 % (0-3) Neutrophils # (Auto) 23.3 x10^3/uL (1.8-7.7) Lymphocytes # (Auto) 0.3 x10^3/uL (1.0-4.8) Monocytes # (Auto) 0.9 x10^3/uL (0.0-1.1) Eosinophils # (Auto) 0.0 x10^3/uL (0.0-0.7) Basophils # (Auto) 0.1 x10^3/uL (0.0-0.2) Sodium Level 140 mmol/L (136-145) Potassium Level 5.0 mmol/L (3.5-5.1) Chloride Level 106 mmol/L (98-107) Carbon Dioxide Level 29 mmol/L (21-32) Anion Gap 5 (6-14) Blood Urea Nitrogen 22 mg/dL (7-20) Creatinine 1.1 mg/dL (0.6-1.0) Estimated GFR (Cockcroft-Gault) 64.7 Glucose Level 134 mg/dL (70-99) Calcium Level 8.2 mg/dL (8.5-10.1) Magnesium Level 2.4 mg/dL (1.8-2.4) Medications Active Scripts Medications Dose Route/Sig Max Daily Dose Days Date Category Lyza (Norethindrone) 0.35 Mg Tablet 0.35 Mg PO DAILY 08/29/20 Reported Xopenex (Levalbuterol HCl) 1.25 Mg/3 Ml Vial.neb 1 Vial NEB PRN Q6HRS PRN 20 08/29/20 Reported Diltiazem 24Hr ER (LA) (Diltiazem HCl) 240 Mg Tab.er.24h 1 Tab PO DAILY 30 08/29/20 Reported Prednisone 5 Mg Tablet 5 Mg PO DAILY 08/29/20 Reported Metoprolol Succinate ( Xl ) (Metoprolol Succinate) 100 Mg Tab.er.24h 1 Tab PO DAILY 08/29/20 Reported Impression . 1. Acute hypoxic respiratory failure secondary to acute flare up of sarcoidosis/ Acute Alveolitis 2. The patient with known sarcoidosis diagnosed 22 years ago with lung biopsy in [place]. She has been on chronic prednisone since then. Her baseline dose recently has been 5 mg daily. She gets flareups once a year and the symptoms are more suggestive of an acute flareup. 3. Abnormal CT chest with ground-glass infiltrates bilaterally, suggestive of acute flareup. No prior imaging study available. 4. Abnormal troponin. May be demand ischemia. 5. No significant tobacco history. Plan . 1. Continue with present oxygen and gradually wean down to keep saturation 92 and above. 2. DC antibiotic Normal Procal. Clinical suspicion for pneumonia is low. High C-reactive protein due to Sarcoid flare up 3. Lovenox for DVT prophylaxis. 4. IV steroids. Monitor the response to treatment. 5. As the patient clinically gets better, we will gradually taper to oral prednisone and to a baseline of 5 mg daily. 6. Discussed with RN 7. Possible dc in 24 hrs with 6 min walk test. repeat ct chest in 8 weeks COLTEN CHAVEZ MD Aug 31, 2020 11:58
--- NOTE | 2020-08-31 14:32 | PDOC ---
[facility] PROGRESS NOTE Date of Service DOS: DATE: 08/31/20 TIME: 14:30 Chief Complaint Chief Complaint A/P: Acute hypoxic respiratory failure - likely 2/2 sarcoidosis flare +/- community acquired bacterial pneumonia, high risk for likely gram negatives. Wean O2 as tolerated Sarcoidosis - with flare. Appreciate pulmonology recommendationscontinue with IV steroids today and transition to prednisone taper tomorrow. DC antibiotics Chest pain - atypical for cardiac pain, though with elevated troponin will trend. Likely 2/2 sarcoidosis Elevated troponin - likely demand ischemia given profound hypoxia. Will trend HTN - cont BB and CCB home meds Hypokalemia - replace,check mag level APRIL - likely vasomotor nephropathy, will hydrate. Sepsis - with Leukocytosis - with tachycardia meets SIRS criteria, likely pul monary infection. Will give IVF for SEPSIS, POA and empiric antibiotics Anemia - will check iron studies, likely of chronic disease Low suspicion for COVID 19results are negative FEN - General diet PPX - lovenox FULL CODE DIspo - inpatient History of Present Illness History of Present Illness 08/31/2020 No acute events overnight. Patient seen and examined bedside tolerating breakfast. No acute respiratory events. Patient's chart, labs, images were reviewed and discussed with RN Ms Sorto is a 45yo F w/ PMHx sarcoidosis, HTN who presents with chief complaint of progressive shortness of breath over the past several days. She notes that she is more short of breath than usual with exertion. She denies any shortness of breath at rest. Denies chest pain. Denies syncope. States this feels similar to previous sarcoidosis flares. She does take prednisone daily. She does note that she recently traveled from [place] to visit family in the area, she drove herself. No history of VTE. Denies any swelling to the legs. Denies any known exposure to coronavirus. Denies fevers.Denies any abdominal pain. Denies syncope. Denies any cardiac history or invasive cardiac disease. No nausea no vomiting. Denies diaphoresis. No other complaints. Hypoxic to 73% on room air in ED. She does not wear home O2. CXR with diffuse bilateral interstitial opacities. CTPA negative for PE, did show diffuse groundglass opacities scattered throughout both lungs. Labs significant for WBC 19.5, Hb 11.3, platelets 334, BNP 6540, troponin 0.162, bilirubin 2.8, NA 140, K3.4, BUN 11, CR 1.3, glucose 140, lactic acid 2, albumin 3.4 EKG consistent with sinus tachycardia. Ventricular rate of 121 bpm. Distant normal. Q waves noted in lead III. No acute ST segment elevation appreciated. Admitted for further care Afebrile overnight. On less O2. Creatinine improved from 1.3-1.0 Troponin came down to 0.164, CRP returned to 138.8. She symptomatically feels better. WBC 14.4. Still little short of breath, her chest pain is a little better. Vitals/I&O Vitals/I&O: Vital Signs Date Time Temp Pulse Resp B/P (MAP) Pulse Ox O2 Delivery O2 Flow Rate FiO2 08/31/20 10:58 97.7 79 17 121/79 (93) 95 Nasal Cannula 2.0 97.7 I & O 08/30/20 08/30/20 08/31/20 15:00 23:00 07:00 Intake Total 650 ml 600 ml Balance 650 ml 600 ml Physical Exam Physical Exam: GEN: No apparent distress. Alert and oriented HEENT: Normal cephalic, atraumatic, external auditory canals are patent NECK: Supple, no JVD, no thyromegaly was noted LUNGS: Bilateral clear HEART: RRR, S1, S2 present. Peripheral pulses intact, no obvious murmurs noted ABDOMEN: Soft, nontender. Positive bowel sounds, no organomegaly, normal bowel sounds EXTREMITIES: Without clubbing, cyanosis, or edema. Pedal pulses intact. Negative Homans sign General: Alert, Oriented X3, Cooperative, moderate distress Abdomen: Normal bowel sounds, Soft, No tenderness, No hepatosplenomegaly, No masses Extremities: No clubbing, No cyanosis, No edema, Normal pulses, No tenderness/swelling Skin: No rashes, No breakdown, No significant lesion Labs Labs: Laboratory Tests Test 08/31/20 03:43 White Blood Count 24.6 x10^3/uL (4.0-11.0) Red Blood Count 3.14 x10^6/uL (3.50-5.40) Hemoglobin 10.0 g/dL (12.0-15.5) Hematocrit 29.6 % (36.0-47.0) Mean Corpuscular Volume 94 fL (79-100) Mean Corpuscular Hemoglobin 32 pg (25-35) Mean Corpuscular Hemoglobin Concent 34 g/dL (31-37) Red Cell Distribution Width 20.3 % (11.5-14.5) Platelet Count 320 x10^3/uL (140-400) Neutrophils (%) (Auto) 95 % (31-73) Lymphocytes (%) (Auto) 1 % (24-48) Monocytes (%) (Auto) 4 % (0-9) Eosinophils (%) (Auto) 0 % (0-3) Basophils (%) (Auto) 0 % (0-3) Neutrophils # (Auto) 23.3 x10^3/uL (1.8-7.7) Lymphocytes # (Auto) 0.3 x10^3/uL (1.0-4.8) Monocytes # (Auto) 0.9 x10^3/uL (0.0-1.1) Eosinophils # (Auto) 0.0 x10^3/uL (0.0-0.7) Basophils # (Auto) 0.1 x10^3/uL (0.0-0.2) Sodium Level 140 mmol/L (136-145) Potassium Level 5.0 mmol/L (3.5-5.1) Chloride Level 106 mmol/L (98-107) Carbon Dioxide Level 29 mmol/L (21-32) Anion Gap 5 (6-14) Blood Urea Nitrogen 22 mg/dL (7-20) Creatinine 1.1 mg/dL (0.6-1.0) Estimated GFR (Cockcroft-Gault) 64.7 Glucose Level 134 mg/dL (70-99) Calcium Level 8.2 mg/dL (8.5-10.1) Magnesium Level 2.4 mg/dL (1.8-2.4) Assessment and Plan Assessmemt and Plan Problems Medical Problems: (1) APRIL (acute kidney injury) Status: Acute (2) Community acquired pneumonia Status: Acute (3) NSTEMI (non-ST elevated myocardial infarction) Status: Acute (4) Sarcoidosis Status: Acute Comment Review of Relevant I have reviewed the following items kita (where applicable) has been applied. Justifications for Admission Other Justification JANNET REYNAGA MD Aug 31, 2020 14:32
--- NOTE | 2020-08-31 15:20 | NUR ---
Pt transferred by wheelchair from room 658 to room 524. Remains on 1L NC. Belongings sent with pt.
--- NOTE | 2020-08-31 16:11 | NUR ---
SW following. Spoke with RN and reviewed chart. SW consulted for pt being high risk for readmission. Pt currently on IV pain medications, 1l 02, cardiac diet. Pt is COVID negative. FRANKO spoke with pt who stated no concerns about returning home. Pt stated she lives with her boyfriend and can afford her medications. Pt does not have home 02 but does not appear she will need it on discharge. SW following.
[2020-09-01] MEDS: guaiFENesin DM 200MG/20MG 10 ML SYRUP PO PRN ×2 (00:17→20:57)
[2020-09-01 03:00] VITALS: BP 117/77
[2020-09-01] MEDS: methylPREDNISolone SOD SUCC PF 40 MG/ML VIAL. IV SCH ×2 (06:00→17:18)
--- NOTE | 2020-09-01 06:42 | NUR ---
Iv solumedrol held at this time, patient complained of discomfort last evening. will inform the day staff., did note Dr Lopez's note that plan is to start po medicine.
[2020-09-01 07:15] VITALS: BP 116/62
--- NOTE | 2020-09-01 08:36 | PDOC ---
PULMONARY PROGRESS NOTES DATE: 09/01/20 TIME: 08:36 Subjective feels better on 2 litres Vitals Vital Signs Date Time Temp Pulse Resp B/P (MAP) Pulse Ox O2 Delivery O2 Flow Rate FiO2 09/01/20 07:15 98.4 75 20 116/62 (80) 97 Nasal Cannula 1.0 98.4 Comments visual exam done due to COVID suspicion no soa no rash, no edema General: Alert, No acute distress Labs Laboratory Tests Test 08/31/20 03:43 White Blood Count 24.6 x10^3/uL (4.0-11.0) Red Blood Count 3.14 x10^6/uL (3.50-5.40) Hemoglobin 10.0 g/dL (12.0-15.5) Hematocrit 29.6 % (36.0-47.0) Mean Corpuscular Volume 94 fL (79-100) Mean Corpuscular Hemoglobin 32 pg (25-35) Mean Corpuscular Hemoglobin Concent 34 g/dL (31-37) Red Cell Distribution Width 20.3 % (11.5-14.5) Platelet Count 320 x10^3/uL (140-400) Neutrophils (%) (Auto) 95 % (31-73) Lymphocytes (%) (Auto) 1 % (24-48) Monocytes (%) (Auto) 4 % (0-9) Eosinophils (%) (Auto) 0 % (0-3) Basophils (%) (Auto) 0 % (0-3) Neutrophils # (Auto) 23.3 x10^3/uL (1.8-7.7) Lymphocytes # (Auto) 0.3 x10^3/uL (1.0-4.8) Monocytes # (Auto) 0.9 x10^3/uL (0.0-1.1) Eosinophils # (Auto) 0.0 x10^3/uL (0.0-0.7) Basophils # (Auto) 0.1 x10^3/uL (0.0-0.2) Sodium Level 140 mmol/L (136-145) Potassium Level 5.0 mmol/L (3.5-5.1) Chloride Level 106 mmol/L (98-107) Carbon Dioxide Level 29 mmol/L (21-32) Anion Gap 5 (6-14) Blood Urea Nitrogen 22 mg/dL (7-20) Creatinine 1.1 mg/dL (0.6-1.0) Estimated GFR (Cockcroft-Gault) 64.7 Glucose Level 134 mg/dL (70-99) Calcium Level 8.2 mg/dL (8.5-10.1) Magnesium Level 2.4 mg/dL (1.8-2.4) Medications Active Scripts Medications Dose Route/Sig Max Daily Dose Days Date Category Lyza (Norethindrone) 0.35 Mg Tablet 0.35 Mg PO DAILY 08/29/20 Reported Xopenex (Levalbuterol HCl) 1.25 Mg/3 Ml Vial.neb 1 Vial NEB PRN Q6HRS PRN 20 08/29/20 Reported Diltiazem 24Hr ER (LA) (Diltiazem HCl) 240 Mg Tab.er.24h 1 Tab PO DAILY 30 08/29/20 Reported Prednisone 5 Mg Tablet 5 Mg PO DAILY 08/29/20 Reported Metoprolol Succinate ( Xl ) (Metoprolol Succinate) 100 Mg Tab.er.24h 1 Tab PO DAILY 08/29/20 Reported Impression . 1. Acute hypoxic respiratory failure secondary to acute flare up of sarcoidosis/ Acute Alveolitis 2. The patient with known sarcoidosis diagnosed 22 years ago with lung biopsy in [place]. She has been on chronic prednisone since then. Her baseline dose recently has been 5 mg daily. She gets flareups once a year and the symptoms are more suggestive of an acute flareup. 3. Abnormal CT chest with ground-glass infiltrates bilaterally, suggestive of acute flareup. No prior imaging study available. 4. Abnormal troponin. May be demand ischemia. 5. No significant tobacco history. Plan . 1. Continue with present oxygen and gradually wean down to keep saturation 92 and above. 2. DC antibiotic Normal Procal. Clinical suspicion for pneumonia is low. High C-reactive protein due to Sarcoid flare up 3. Lovenox for DVT prophylaxis. 4. IV steroids. Monitor the response to treatment. 5. As the patient clinically gets better, we will gradually taper to oral prednisone and to a baseline of 5 mg daily. 6. Discussed with RN 7. Possible dc in 24 hrs with 6 min walk test. repeat ct chest in 8 weeks JOSE ONEIL MD Sep 01, 2020 08:36
[2020-09-01] MEDS: ENOXAPARIN 40 MG/0.4 ML SYRINGE. SQ SCH (09:00)
[2020-09-01] MEDS: METOPROLOL SUCC 24HR ER 100 MG TAB.ER.24H. PO SCH (09:32)
[2020-09-01 11:20] VITALS: BP 118/82
[2020-09-01 15:06] VITALS: BP 139/93
--- NOTE | 2020-09-01 15:26 | NUR ---
SW following. Spoke with RN and reviewed chart. FRANKO met with patient. Pt to discharge home today, self-care on oral medications after seen by pulmonary. Pt COVID negative and stated her boyfriend will provide transportation. 6 min walk indicates need for 02 at discharge. Pt stated she does not want [facility] as her provider. FRANKO phoned and faxed clinicals and 02 orders to [facility], , (fax) at pt request. FRANKO confirmed with Ryan that orders were received and that FRANKO could send pt with a tank. FRANKO took 02 tank to pt's room for transportation home. Pt instructed to call the number on the tank when she arrives home for home 02 setup. Patient choice of vendor form was completed. No further SW needs at this time.
--- NOTE | 2020-09-01 18:40 | PDOC ---
[facility] PROGRESS NOTE Date of Service DOS: DATE: 09/01/20 TIME: 18:37 Chief Complaint Chief Complaint A/P: Acute hypoxic respiratory failure - likely 2/2 sarcoidosis flare +/- community acquired bacterial pneumonia, high risk for likely gram negatives. Wean O2 as tolerated Sarcoidosis - with flare. Appreciate pulmonology recommendationscontinue with IV steroids today and transition to prednisone taper today DC antibiotics Chest pain - atypical for cardiac pain, though with elevated troponin will trend. Likely 2/2 sarcoidosis Elevated troponin - likely demand ischemia given profound hypoxia. Will trend HTN - cont BB and CCB home meds Hypokalemia - replace,check mag level APRIL - likely vasomotor nephropathy, will hydrate. Sepsis - with Leukocytosis - with tachycardia meets SIRS criteria, likely pulmonary infection. Will give IVF for SEPSIS, POA and empiric antibiotics Anemia - will check iron studies, likely of chronic disease Low suspicion for COVID 19results are negative FEN - General diet PPX - lovenox FULL CODE DIspo - inpatient History of Present Illness History of Present Illness 09/01/20 No acute events overnight. Patient completed 6 min walk test and she will need to go home with o2. No complaints at this time. > 50% time spent in patient chart, labs, and image review and discussion with RN and FRANKO 08/31/2020 No acute events overnight. Patient seen and examined bedside tolerating b reakfast. No acute respiratory events. Patient's chart, labs, images were reviewed and discussed with RN Ms Sorto is a 45yo F w/ PMHx sarcoidosis, HTN who presents with chief complaint of progressive shortness of breath over the past several days. She notes that she is more short of breath than usual with exertion. She denies any shortness of breath at rest. Denies chest pain. Denies syncope. States this feels similar to previous sarcoidosis flares. She does take prednisone daily. She does note that she recently traveled from [place] to visit family in the area, she drove herself. No history of VTE. Denies any swelling to the legs. Denies any known exposure to coronavirus. Denies fevers.Denies any abdominal pain. Denies syncope. Denies any cardiac history or invasive cardiac disease. No nausea no vomiting. Denies diaphoresis. No other complaints. Hypoxic to 73% on room air in ED. She does not wear home O2. CXR with diffuse bilateral interstitial opacities. CTPA negative for PE, did show diffuse groundglass opacities scattered throughout both lungs. Labs significant for WBC 19.5, Hb 11.3, platelets 334, BNP 6540, troponin 0.162, bilirubin 2.8, NA 140, K3.4, BUN 11, CR 1.3, glucose 140, lactic acid 2, albumin 3.4 EKG consistent with sinus tachycardia. Ventricular rate of 121 bpm. [place] normal. Q waves noted in lead III. No acute ST segment elevation appreciated. Admitted for further care Afebrile overnight. On less O2. Creatinine improved from 1.3-1.0 Troponin came down to 0.164, CRP returned to 138.8. She symptomatically feels better. WBC 14.4. Still little short of breath, her chest pain is a little better. Vitals/I&O Vitals/I&O: Vital Signs Date Time Temp Pulse Resp B/P (MAP) Pulse Ox O2 Delivery O2 Flow Rate FiO2 09/01/20 15:06 97.6 82 20 139/93 (108) 95 Nasal Cannula 1.0 97.6 I & O 08/31/20 08/31/20 09/01/20 15:00 23:00 07:00 Intake Total 420 ml 240 ml 240 ml Balance 420 ml 240 ml 240 ml Physical Exam Physical Exam: GEN: No apparent distress. Alert and oriented HEENT: Normal cephalic, atraumatic, external auditory canals are patent NECK: Supple, no JVD, no thyromegaly was noted LUNGS: Bilateral clear HEART: RRR, S1, S2 present. Peripheral pulses intact, no obvious murmurs noted ABDOMEN: Soft, nontender. Positive bowel sounds, no organomegaly, normal bowel sounds EXTREMITIES: Without clubbing, cyanosis, or edema. Pedal pulses intact. Nega tive Homans sign General: Alert, Oriented X3, Cooperative, moderate distress Abdomen: Normal bowel sounds, Soft, No tenderness, No hepatosplenomegaly, No masses Extremities: No clubbing, No cyanosis, No edema, Normal pulses, No tenderness/swelling Skin: No rashes, No breakdown, No significant lesion Assessment and Plan Assessmemt and Plan Problems Medical Problems: (1) APRIL (acute kidney injury) Status: Acute (2) Community acquired pneumonia Status: Acute (3) NSTEMI (non-ST elevated myocardial infarction) Status: Acute (4) Sarcoidosis Status: Acute Comment Review of Relevant I have reviewed the following items kita (where applicable) has been applied. Medications: Current Medications Medications (Trade) Dose Ordered Sig/Jan Route PRN Reason Start Time Stop Time Status Last Admin Dose Admin Methylprednisolone Sodium Succinate (SOLU-Medrol 40MG VIAL) 60 mg Q8HRS IV 08/31/20 22:00 09/01/20 17:18 Justifications for Admission Other Justification JANNET REYNAGA MD Sep 01, 2020 18:40
[2020-09-01 19:00] VITALS: BP 139/83
[2020-09-01] MEDS: predniSONE 20 MG TABLET PO SCH (20:57)
[2020-09-02 07:15] VITALS: BP 130/79
--- NOTE | 2020-09-02 08:40 | PDOC ---
PULMONARY PROGRESS NOTES DATE: 09/02/20 TIME: 08:40 Subjective Less short of air, was not on oxygen prior to this admission Vitals Vital Signs Date Time Temp Pulse Resp B/P (MAP) Pulse Ox O2 Delivery O2 Flow Rate FiO2 09/02/20 07:15 98.5 62 16 130/79 (96) 98 Nasal Cannula 2.0 98.5 Comments visual exam done due to COVID suspicion no soa no rash, no edema General: Alert, No acute distress Medications Active Scripts Medications Dose Route/Sig Max Daily Dose Days Date Category Lyza (Norethindrone) 0.35 Mg Tablet 0.35 Mg PO DAILY 08/29/20 Reported Xopenex (Levalbuterol HCl) 1.25 Mg/3 Ml Vial.neb 1 Vial NEB PRN Q6HRS PRN 20 08/29/20 Reported Diltiazem 24Hr ER (LA) (Diltiazem HCl) 240 Mg Tab.er.24h 1 Tab PO DAILY 30 08/29/20 Reported Prednisone 5 Mg Tablet 5 Mg PO DAILY 08/29/20 Reported Metoprolol Succinate ( Xl ) (Metoprolol Succinate) 100 Mg Tab.er.24h 1 Tab PO DAILY 08/29/20 Reported Impression . 1. Acute hypoxic respiratory failure secondary to acute flare up of sarcoidosis/ Acute Alveolitis 2. The patient with known sarcoidosis diagnosed 22 years ago with lung biopsy in [place]. She has been on chronic prednisone since then. Her baseline dose recently has been 5 mg daily. She gets flareups once a year and the symptoms are more suggestive of an acute flareup. 3. Abnormal CT chest with ground-glass infiltrates bilaterally, suggestive of acute flareup. No prior imaging study available. 4. Abnormal troponin. May be demand ischemia. 5. No significant tobacco history. Plan . Discharge home with oxygen, 2 L at rest six with exertion prednisone 30 mg still sees me in the off RX written for vitamin D 50,000 units with patient allergic to sulfa, unable to prescribe Bactrim DS daily for prophylaxis case discussed with PCP and RN repeat CT chest and eight weeks JOSE ONEIL MD Sep 02, 2020 08:40
[2020-09-02] MEDS: ENOXAPARIN 40 MG/0.4 ML SYRINGE. SQ SCH (09:00)
[2020-09-02] MEDS: predniSONE 20 MG TABLET PO SCH (09:46)
[2020-09-02] MEDS: METOPROLOL SUCC 24HR ER 100 MG TAB.ER.24H. PO SCH (09:47)
[2020-09-02 10:26] LABS: ANISOCYTOSIS MOD
[2020-09-02 10:54] VITALS: BP 144/92
--- NOTE | 2020-09-02 11:44 | DISCH ---
DISCHARGE INSTRUCTIONS Condition on Discharge Condition on Discharge: Stable Activity After Discharge Activity Instructions for Disc: Resume previous activity Driving Instructions after Dis: Do not drive today Diet after Discharge Diet after Discharge: Regular Checks after Discharge Checks after discharge: Check blood sugar, ac/hs DC Comment: CBC, CMP Contacting the DR. after DC Call your doctor for: If your condition worsens Follow-Up Follow up with: PCP within 2 weeks of discharge Follow Up With: Dr. Colvin, pulmonology for your sarcoidosis flare Treatment/Equipment after DC Discharge Respiratory Equipmen: Oxygen (Continue oxygen by nasal cannula 6 L during activity and 2 L during rest) Comment: Follow prednisone taper instructions JANNET REYNAGA MD Sep 02, 2020 11:44
--- NOTE | 2020-09-02 11:52 | PDOC3 ---
[facility]-Discharge Summary Date of Admission: Date of Admission: Aug 29, 2020 Date of Discharge: Date of Discharge: Sep 02, 2020 Admission Diagnosis: Admitting Diagnosis: Acute hypoxic respiratory failure - likely 2/2 sarcoidosis flare +/- community acquired bacterial pneumonia, high risk for likely gram negatives. Wean O2 as tolerated Sarcoidosis - with flare. Will give IV steroids, cover with antibiotis. Consult pulm Chest pain - atypical for cardiac pain, though with elevated troponin will trend. Likely 2/2 sarcoidosis Elevated troponin - likely demand ischemia given profound hypoxia. Will trend HTN - cont BB and CCB home meds Hypokalemia - replace,check mag level APRIL - likely vasomotor nephropathy, will hydrate. Sepsis - with Leukocytosis - with tachycardia meets SIRS criteria, likely pulmonary infection. Will give IVF for SEPSIS, POA and empiric antibiotics Anemia - will check iron studies, likely of chronic disease Low suspicion for COVID 19 Discharge Diagnosis: Discharge Diagnosis: Acute hypoxic respiratory failure - likely 2/2 sarcoidosis flare +/- community acquired bacterial pneumonia, high risk for likely gram negatives. Wean O2 as tolerated Sarcoidosis - with flare. Appreciate pulmonology recommendationscontinue with IV steroids today and transition to prednisone taper today DC antibiotics Chest pain - atypical for cardiac pain, though with elevated troponin will trend. Likely 2/2 sarcoidosis Elevated troponin - likely demand ischemia given profound hypoxia. Will trend HTN - cont BB and CCB home meds Hypokalemia - replace,check mag level APRIL - likely vasomotor nephropathy, will hydrate. Sepsis - with Leukocytosis - with tachycardia meets SIRS criteria, likely pulmonary infection. Will give IVF for SEPSIS, POA and empiric antibiotics Anemia - will check iron studies, likely of chronic disease Low suspicion for COVID 19results are negative Consults: Consults: Pulmonology Hospital Course: Hospital Course: 45yo F w/ PMHx sarcoidosis, HTN who presents with chief complaint of progressive shortness of breath over the past several days. She notes that she is more short of breath than usual with exertion. She denies any shortness of breath at rest. Denies chest pain. Denies syncope. States this feels similar to previous sarcoidosis flares. She does take prednisone daily. She does note that she recently traveled from [place] to visit family in the area, she drove herself. No history of VTE. Denies any swelling to the legs. Denies any known exposure to coronavirus. Denies fevers.Denies any abdominal pain. Denies syncope. Denies any cardiac history or invasive cardiac disease. No nausea no vomiting. Denies diaphoresis. No other complaints. Hypoxic to 73% on room air in ED. She does not wear home O2. CXR with diffuse bilateral interstitial opacities. CTPA negative for PE, did show diffuse groundglass opacities scattered throughout both lungs. Labs significant for WBC 19.5, Hb 11.3, platelets 334, BNP 6540, troponin 0.162, bilirubin 2.8, NA 140, K3.4, BUN 11, CR 1.3, glucose 140, lactic acid 2, albumin 3.4 EKG consistent with sinus tachycardia. Ventricular rate of 121 bpm. [place] normal. Q waves noted in lead III. No acute ST segment elevation appreciated. Admitted for further care Patient was evaluated by pulmonology and determined kept her on high-dose IV steroids. Patient's shortness of breath had improved and a 6-minute walk test was can done to determine home oxygen requirements. Patient will will need to be on 6 L during activity and 2 L at rest. Pulmonology recommended her for 2 to this and continue antibiotics as this was determined to be entirely related to her sarcoidosis. By day of discharge she was transitioned from IV steroids to p.o. prednisone taper. She will continue this taper until she is back to her baseline at prednisone 5 mg daily. The plan was discussed with the patient in detail on day of her discharge. The rest of her hospital course was uneventful. Disposition: Disposition/Orders: D/C to Home Activity: Activity: Resume previous activity Diet: Diet: Regular Medications: Home Meds Reported Medications Norethindrone (LYZA) 0.35 Mg Tablet, 0.35 MG PO DAILY for contraceptive, TAB 10/3/20 Levalbuterol HCl (Xopenex) 1.25 Mg/3 Ml Vial.neb, 1 VIAL NEB PRN Q6HRS PRN for SHORTNESS OF BREATH for 20 Days, #60 VIAL 0 Refills 10/3/20 Diltiazem HCl (Diltiazem 24Hr ER (LA)) 240 Mg Tab.er.24h, 1 TAB PO DAILY for HTN for 30 Days, #30 TAB 0 Refills 10/3/20 Metoprolol Succinate (METOPROLOL SUCCINATE ( XL )) 100 Mg Tab.er.24h, 1 TAB PO DAILY for HTN, #30 TAB 5 Refills 08/29/20 Discontinued Reported Medications Prednisone (PREDNISONE) 5 Mg Tablet, 5 MG PO DAILY for sarcoidosis , TAB 08/29/20 Levalbuterol Hcl (XOPENEX) 0.63 Mg/3 Ml Vial.neb, 1 VIAL NEB PRN Q6HRS PRN for shortness of breath for 12 Days, #144 ML 0 Refills 08/29/20 Scheduled Diltiazem HCl (Diltiazem 24Hr ER (LA)), 1 TAB PO DAILY, (Reported) Metoprolol Succinate (Metoprolol Succinate ( Xl )), 1 TAB PO DAILY, (Reported) Norethindrone (Lyza), 0.35 MG PO DAILY, (Reported) Scheduled PRN Levalbuterol HCl (Xopenex), 1 VIAL NEB PRN Q6HRS PRN for SHORTNESS OF BREATH, (Reported) Discontinued Medications Levalbuterol Hcl (Xopenex), 1 VIAL NEB PRN Q6HRS PRN for shortness of breath, (Reported) Prednisone (Prednisone), 5 MG PO DAILY, (Reported) Total Time: Total Time: Total time spent was 40 minutes in preparing scripts, discharge planning with FRANKO Mcgregor and RN and preparing this discharge summary Patient seen and examined on day of discharge. No acute abnormal findings. Justicifation of Admission Dx: Justifications for Admission: Justification of Admission Dx: Yes Respiratory Failure: Severe Resp Distress JANNET REYNAGA MD Sep 02, 2020 11:51
[2020-09-02] MEDS ORDERED: ACETAMINOPHEN 325 MG TABLET. PO PRN (13:00)
--- NOTE | 2020-09-02 15:10 | NUR ---
SW following. Spoke with RN and reviewed chart. Discharge held on 09/01. Pt to discharge home today, self-care with home 02. O2 tank in pt's room. SW updated [facility] on discharge today for home 02 setup and reminded pt to call the number on the tank. Spoke with pt a final time and there are no additional SW needs.
[2020-09-02 15:30] VITALS: BP 147/74
== END 2020-09-02 16:29 | disposition home or self-care (01) | DRG 871 ==
LOC: ER 10:22 → ED HOLD 12:45 → 6 SOUTH 14:17 → 5 NORTH 08-31 15:24
PROVIDERS: ADMIT Internal Medicine; ATTEND Internal Medicine
DX: A41.9 Sepsis, unspecified organism (principal); J96.01 Acute respiratory failure with hypoxia; N17.0 Acute kidney failure with tubular necrosis; J15.9 Unspecified bacterial pneumonia; I24.8 Other forms of acute ischemic heart disease; Z20.828 Contact with and (suspected) exposure to other viral communicable diseases; I10 Essential (primary) hypertension; D86.9 Sarcoidosis, unspecified; E87.6 Hypokalemia; D64.9 Anemia, unspecified; R07.89 Other chest pain; Z79.52 Long term (current) use of systemic steroids; Z88.2 Allergy status to sulfonamides; Z91.010 Allergy to peanuts
CPT/HCPCS: 36415; 71045; 71275; 80048; 80053; 82550; 83540; 83550; 83605; 83735; 83880; 84145; 84484; 85007; 85025; 86140; 87040; 90471; 90686; 93005; 94618; 96365; 96375; J0692; J0696; J1650; J2920; J3370; J3475; J7030; J7040; J7512; Q9967; 99285-25; G0378; U0003-CS

== ENCOUNTER 2020-09-04 12:21 | Inpatient (IN) | payer BC, MEDICARE ==
[~2020-09-04] VITALS: Ht 165.1 cm; Wt 98.4 kg
[~2020-09-04 12:21] MED LIST: CALCIUM CHLORIDE 1,000 MG/10 ML DISP.SYRIN ONE; DILT240T8 PO; EPINEPHrine SYRINGE 1 MG/10 ML SYRINGE ONE; LEVA1.2527 NEB; METO-247 PO; NORE0.357 PO; PRED5TAB PO; SODIUM BICARB ADULT 8.4% 50 MEQ/50 ML DISP.SYRIN. ONE; XOPENEX0.63 MG/3 NEB
[2020-09-04] MEDS ORDERED: fentaNYL PF VIAL 100 MCG/2 ML VIAL IV PRN ×2 (12:45)
[2020-09-04] MEDS ORDERED: PROPOFOL 100 ML IV PRN (12:45)
[2020-09-04] MEDS ORDERED: MORPHINE SULFATE 4 MG/ML VIAL. IV PRN (12:45)
[2020-09-04] MEDS ORDERED: ETOMIDATE 20 MG/10 ML VIAL. IV ONE (12:45)
[2020-09-04] MEDS ORDERED: ROCURONIUM 50 MG/5 ML VIAL. IV ONE (12:45)
[2020-09-04] MEDS ORDERED: MORPHINE SULFATE 2 MG/ML VIAL. IV PRN ×2 (12:45→15:45)
[2020-09-04] MEDS ORDERED: VANCOMYCIN 2 GM in IV NORMAL SALINE 500ML BAG 500 ML IV ONE (13:00)
[2020-09-04] MEDS ORDERED: PIPERACILLIN/TAZOBACTAM 3.375 GM in IV NORMAL SALINE 50ML 50 ML IV ONE (13:00)
[2020-09-04] MEDS ORDERED: methylPREDNISolone SOD SUCC PF 125 MG/2 ML VIAL. IV ONE (13:15)
--- NOTE | 2020-09-04 13:19 | PHYS DOC ---
Past Medical History Past Medical History: Hypertension, Other Additional Past Medical Histor: SARCOIDOSIS Past Surgical History: Other Additional Past Surgical Histo: SINUS Smoking Status: Never Smoker Alcohol Use: None General Adult EDM: Chief Complaint: SHORTNESS OF BREATH HPI: HPI: History obtained from patient's boyfriend. Patient is a 45-year-old female past medical history notable for sarcoidosis who presents with chief complaint of shortness of breath and decreased mentation. Boyfriend states she was hospitalized approximately week ago for breathing issues. He states she was discharged home with oral medications. He states that she has not been taking the medication because she felt that the medication that was prescribed was too strong for her. He states she was discharged home with prednisone. He states she does not use oxygen at baseline typically but was discharged home with 2 L. Denies any reports of chest pain. States she has had very poor oral intake overall. No further history can be obtained from the patient secondary to her respiratory distress. Review of Systems: Review of Systems: Constitutional: Denies fever or chills. [] Eyes: Denies change in visual acuity. [] HENT: Denies nasal congestion or sore throat. [] Respiratory: Shortness of breath Cardiovascular: Denies chest pain or edema. [] GI: Denies abdominal pain, nausea, vomiting, bloody stools or diarrhea. [] : Denies dysuria. [] Musculoskeletal: Denies back pain or joint pain. [] Integument: Denies rash. [] Neurologic: Denies headache, focal weakness or sensory changes. [] Endocrine: Denies polyuria or polydipsia. [] Lymphatic: Denies swollen glands. [] Psychiatric: Denies depression or anxiety. [] Heart Score: Risk Factors: Risk Factors: DM, Current or recent (<one month) smoker, HTN, HLP, family history of CAD, obesity. Risk Scores: Score 0 - 3: 2.5% MACE over next 6 weeks - Discharge Home Score 4 - 6: 20.3% MACE over next 6 weeks - Admit for Clinical Observation Score 7 - 10: 72.7% MACE over next 6 weeks - Early Invasive Strategies Current Medications: Current Medications Medications (Trade) Dose Ordered Sig/Jan Start Time Stop Time Status Last Admin Dose Admin Chlorhexidine Gluconate (Peridex) 15 ml BID 09/04/20 21:00 09/04/20 12:50 DC Etomidate (Amidate) 20 mg 1X ONCE 09/04/20 12:45 09/04/20 12:50 DC Fentanyl Citrate (Fentanyl 2ml Vial) 50 mcg PRN Q1HR PRN 09/04/20 12:45 09/04/20 12:50 DC Methylprednisolone Sodium Succinate (SOLU-Medrol 125MG VIAL) 125 mg 1X ONCE 09/04/20 13:15 09/04/20 13:16 DC Morphine Sulfate (Morphine Sulfate) 4 mg PRN Q1HR PRN 09/04/20 12:45 09/04/20 12:50 DC Piperacillin Sod/ Tazobactam Sod 3.375 gm/Sodium Chloride 50 ml @ 100 mls/hr 1X ONCE 09/04/20 13:00 09/04/20 13:29 Propofol 100 ml @ 0 mls/hr CONT PRN 09/04/20 12:45 09/04/20 12:50 DC Rocuronium [place] (Zemuron) 100 mg 1X ONCE 09/04/20 12:45 09/04/20 12:50 DC Vancomycin HCl 2 gm/Sodium Chloride 500 ml @ 250 mls/hr 1X ONCE 09/04/20 13:00 09/04/20 14:59 Allergies: Allergies: Allergies Coded Allergies Type Severity Reaction Last Updated Verified Sulfa (Sulfonamide Antibiotics) Allergy Intermediate 08/29/20 Yes peanut Allergy Intermediate 08/29/20 Yes Physical Exam: PE: Constitutional: Lethargic HENT: Normocephalic, atraumatic, bilateral external ears normal, oropharynx moist, no oral exudates, nose normal. [] Eyes: PERRLA, EOMI, conjunctiva normal, no discharge. [] Neck: Normal range of motion, no tenderness, supple, no stridor. [] Cardiovascular tachycardic, rhythm, no murmur [] Lungs & Thorax: Bilateral breath sounds clear to auscultation [] Abdomen: soft, no tenderness, no masses, no pulsatile masses. [] Skin: Warm, dry, no erythema, no rash. [] Back: No tenderness, no CVA tenderness. [] Extremities: No tenderness, no cyanosis, no clubbing, ROM intact, no edema. [] Neurologic: GCS (12) [id number] Current Patient Data: Labs: Laboratory Tests Test 10/9/20 13:40 White Blood Count 29.3 x10^3/uL Red Blood Count 3.36 x10^6/uL Hemoglobin 10.5 g/dL Hematocrit 31.5 % Mean Corpuscular Volume 94 fL Mean Corpuscular Hemoglobin 31 pg Mean Corpuscular Hemoglobin Concent 33 g/dL Red Cell Distribution Width 21.0 % Platelet Count 228 x10^3/uL Neutrophils (%) (Auto) 86 % Lymphocytes (%) (Auto) 3 % Monocytes (%) (Auto) 10 % Eosinophils (%) (Auto) 1 % Basophils (%) (Auto) 0 % Neutrophils # (Auto) 25.1 x10^3/uL Lymphocytes # (Auto) 1.0 x10^3/uL Monocytes # (Auto) 2.9 x10^3/uL Eosinophils # (Auto) 0.3 x10^3/uL Basophils # (Auto) 0.1 x10^3/uL Platelet Estimate Pending Sodium Level 139 mmol/L Potassium Level 5.7 mmol/L Chloride Level 101 mmol/L Carbon Dioxide Level 29 mmol/L Anion Gap 9 Blood Urea Nitrogen 41 mg/dL Creatinine 1.4 mg/dL Estimated GFR (Cockcroft-Gault) 49.0 BUN/Creatinine Ratio 29 Glucose Level 137 mg/dL Lactic Acid Level 3.2 mmol/L Calcium Level 8.9 mg/dL Total Bilirubin 3.9 mg/dL Aspartate Amino Transf (AST/SGOT) 103 U/L Alanine Aminotransferase (ALT/SGPT) 153 U/L Alkaline Phosphatase 377 U/L Troponin I Quantitative 0.157 ng/mL [id number]-Type Natriuretic Peptide > 45015 pg/mL Total Protein 7.5 g/dL Albumin 3.3 g/dL Albumin/Globulin Ratio 0.8 Current Medications Medications (Trade) Dose Ordered Sig/Jan Route PRN Reason Start Time Stop Time Status Last Admin Dose Admin Rocuronium [place] (Zemuron) 100 mg 1X ONCE IV 09/04/20 12:45 09/04/20 12:50 DC Etomidate (Amidate) 20 mg 1X ONCE IV 09/04/20 12:45 09/04/20 12:50 DC Fentanyl Citrate 30 ml @ 0 mls/hr CONT PRN IV SEE PROTOCOL 09/04/20 12:45 09/04/20 12:50 DC Propofol 100 ml @ 0 mls/hr CONT PRN IV SEE PROTOCOL 09/04/20 12:45 09/04/20 12:50 DC Fentanyl Citrate (Fentanyl 2ml Vial) 25 mcg PRN Q1HR PRN IV SEE COMMENTS 09/04/20 12:45 09/04/20 12:50 DC Fentanyl Citrate (Fentanyl 2ml Vial) 50 mcg PRN Q1HR PRN IV SEE COMMENTS 09/04/20 12:45 09/04/20 12:50 DC Chlorhexidine Gluconate (Peridex) 15 ml BID MM 09/04/20 21:00 09/04/20 12:50 DC Morphine Sulfate (Morphine Sulfate) 2 mg PRN Q1HR PRN IV SEE COMMENTS. 09/04/20 12:45 09/04/20 12:50 DC Morphine Sulfate (Morphine Sulfate) 4 mg PRN Q1HR PRN IV SEE COMMENTS. 09/04/20 12:45 09/04/20 12:50 DC Piperacillin Sod/ Tazobactam Sod 3.375 gm/Sodium Chloride 50 ml @ 100 mls/hr 1X ONCE IV 09/04/20 13:00 09/04/20 13:29 DC 09/04/20 13:19 Vancomycin HCl 2 gm/Sodium Chloride 500 ml @ 250 mls/hr 1X ONCE IV 09/04/20 13:00 09/04/20 14:59 DC Methylprednisolone Sodium Succinate (SOLU-Medrol 125MG VIAL) 125 mg 1X ONCE IV 09/04/20 13:15 09/04/20 13:16 DC 09/04/20 13:20 Furosemide (Lasix) 40 mg 1X ONCE IVP 09/04/20 15:00 09/04/20 15:01 DC Vital Signs: Vital Signs Date Time Temp Pulse Resp B/P (MAP) Pulse Ox O2 Delivery O2 Flow Rate FiO2 09/04/20 12:32 97.5 114 26 174/98 (123) 99 NonRebreather Mask 15.0 97.5 EKG: EKG: [] EKG consistent with sinus tachycardia. Ventricular rate of 125 bpm. [place] normal. Q waves noted in lead III with flipped T wave in lead III. No acute ischemic changes appreciated. Radiology/Procedures: Radiology/Procedures: [facility] [address] [place], [place] [id number] IMAGING REPORT Signed PATIENT: SABASNOELLE ACCOUNT: [id number] : 1975 LOCATION: ER AGE: 45 SEX: F EXAM STATUS: REG ER ORD. PHYSICIAN: WILFREDO ELY DO REASON: SHORT OF BREATH PROCEDURE: CHEST AP ONLY CHEST AP ONLY 09/04/2020 12:47 PM INDICATION: Shortness of breath COMPARISON: 08/29/2020 TECHNIQUE: Portable frontal view of the chest is provided. FINDINGS: The cardiomediastinal silhouette is within normal limits. Perihilar nodular airspace disease is noted with mild to moderate pulmonary vascular congestion. No significant pleural effusions or pneumothorax. Bilateral hilar prominence may be vascular in etiology versus associated with lymphadenopathy. No suspicious osseous abnormality. IMPRESSION: Persistent perihilar interstitial changes are present with minimal improved aeration. Electronically signed by: Rob Avila MD (09/04/2020 2:24 PM) [facility] DICTATED and SIGNED BY: ROB AVILA MD DATE: 09/04/201423 [] Course & Med Decision Making: Course & Med Decision Making Pertinent Labs and Imaging studies reviewed. (See chart for details) [] Patient is a 45-year-old female who presents with chief complaint of hypoxia and lethargy. Initial vital signs notable for oxygenation of 75% on her home 2 L nasal cannula. She did show somnolence. She was placed on nonrebreather and her oxygen improved to 95%. Her mentation also improved significantly. Chest x-ray shows persistent perihilar infiltrate. CBC notable for leukocytosis 29,000. Unclear the exact etiology of this given she has been on steroids recently due to her recent hospitalization for sarcoidosis. She was recently discharged home with oral steroids and 2 L nasal cannula for presumed sarcoidosis flare. Antibiotics were discontinued. Chemistry panel does show hyperkalemia of 5.4 with mild APRIL. EKG changes not consistent with this. Troponin is slightly elevated as well as elevation of proBNP. I do feel her troponin elevation is likely type II demand ischemia. Heparinization be deferred. She was given IV Lasix given her significantly elevated proBNP. Cont inues to improve mentation on nonrebreather. She will require close monitoring in the ICU for further care. Signout given to hospitalist. Kofi Disclaimer: Kofi Disclaimer: This electronic medical record was generated, in whole or in part, using a voice recognition dictation system. Departure Departure Impression: Primary Impression: Sarcoidosis Additional Impressions: NSTEMI (non-ST elevated myocardial infarction) APRIL (acute kidney injury) Transaminitis Lactic acidemia Disposition: 09 ADMITTED INPT THIS HOSP Condition: STABLE Referrals: UNKNOWN PCP NAME (PCP) WILFREDO ELY DO Sep 04, 2020 13:19
[2020-09-04 13:57] LABS: BASO # 0.1 x10^3/uL (0.0-0.2); BASO % 0 % (0-3); EOS # 0.3 x10^3/uL (0.0-0.7); EOS % 1 % (0-3); HEMATOCRIT 31.5 % (36.0-47.0); HEMOGLOBIN 10.5 g/dL (12.0-15.5); LYMPH % 3 % (24-48); MEAN CORPUSCULAR HEMOGLOBIN 31 pg (25-35); MEAN CORPUSCULAR HGB CONC 33 g/dL (31-37); MEAN CORPUSCULAR VOLUME 94 fL (79-100); MONO # 2.9 x10^3/uL (0.0-1.1); MONO % 10 % (0-9); NEUT # 25.1 x10^3/uL (1.8-7.7); NEUT % 86 % (31-73); PLATELET COUNT 228 x10^3/uL (140-400); RED BLOOD COUNT 3.36 x10^6/uL (3.50-5.40); WHITE BLOOD COUNT 29.3 x10^3/uL (4.0-11.0)
[2020-09-04 14:03] LABS: CALCIUM 8.9 mg/dL (8.5-10.1); CREATININE 1.4 mg/dL (0.6-1.0); POTASSIUM 5.7 mmol/L (3.5-5.1)
[2020-09-04 14:17] LABS: ALBUMIN 3.3 g/dL (3.4-5.0); ALBUMIN/GLOBULIN RATIO 0.8 (1.0-1.7); TOTAL BILIRUBIN 3.9 mg/dL (0.2-1.0); TOTAL PROTEIN 7.5 g/dL (6.4-8.2)
--- NOTE | 2020-09-04 14:26 | RAD ---
CHEST AP ONLY 09/04/2020 12:47 PM INDICATION: Shortness of breath COMPARISON: 08/29/2020 TECHNIQUE: Portable frontal view of the chest is provided. FINDINGS: The cardiomediastinal silhouette is within normal limits. Perihilar nodular airspace disease is noted with mild to moderate pulmonary vascular congestion. No significant pleural effusions or pneumothorax. Bilateral hilar prominence may be vascular in etiology versus associated with lymphadenopathy. No suspicious osseous abnormality. IMPRESSION: Persistent perihilar interstitial changes are present with minimal improved aeration. Electronically signed by: Ernestina Hagen MD (09/04/2020 2:24 PM) [facility]
[2020-09-04] MEDS ORDERED: FUROSEMIDE 40 MG/4 ML VIAL. IVP ONE (15:00)
[2020-09-04] MEDS ORDERED: ONDANSETRON PF 4 MG/2 ML VIAL. IVP PRN (15:45)
[2020-09-04] MEDS ORDERED: CALCIUM CARBONATE 500 MG TAB.CHEW PO PRN (15:45)
[2020-09-04] MEDS ORDERED: 0.9 % SODIUM CHLORIDE 10 ML DISP.SYRIN. IV PRN (15:45)
[2020-09-04] MEDS ORDERED: ZOLPIDEM 5 MG TABLET. PO PRN (15:45)
[2020-09-04] MEDS ORDERED: LACTULOSE 20 GM/30 ML SOLUTION. PO PRN (15:45)
[2020-09-04] MEDS ORDERED: HYDROcodone/APAP 5/325MG 1 TAB TABLET PO PRN (15:45)
[2020-09-04] MEDS ORDERED: ACETAMINOPHEN 325 MG TABLET. PO PRN (15:45)
[2020-09-04 15:50] LABS: % BANDS 1 % (0-9); % LYMPHS 7 % (24-48); % METAS 1 % (0-0); % MONOS 7 % (0-10); % MYELOS 1 % (0-0); % SEGS 83 % (35-66); NUCLEATED RBC 52
[2020-09-04 15:51] LABS: PLT ESTIMATE ADEQUATE (ADEQUATE)
[2020-09-04 16:09] LABS: HYPOCHROMIA SLIGHT
[2020-09-04 16:10] LABS: ANISOCYTOSIS MOD; POIKILOCYTOSIS SLIGHT
[2020-09-04 16:11] LABS: POLYCHROMASIA OCCASIONAL; TARGET CELLS MOD
--- NOTE | 2020-09-04 17:31 | PDOC1 ---
History and Physical Date of Admission Date of Admission 09/04/2020 Identification/Chief Complaint Chief Complaint I could not breathe Source Source: Chart review, Patient History of Present Illness History of Present Illness 45yo F w/ PMHx sarcoidosis, HTN who presents with chief complaint of progressive shortness of breath over the past several days. She notes that she is more short of breath than usual with exertion. She denies any shortness of breath at rest. Denies chest pain. Denies syncope. States this feels similar to previous sarcoidosis flares. She does take prednisone daily. She does note that she recently traveled from [place] to visit family in the area, she drove herself. No history of VTE. Denies any swelling to the legs. Denies any known exposure to coronavirus. Denies fevers.Denies any abdominal pain. Denies syncope. Denies any cardiac history or invasive cardiac disease. No nausea no vomiting. Denies diaphoresis. No other complaints. Hypoxic to 73% on room air in ED. She does not wear home O2. CXR with diffuse bilateral interstitial opacities. CTPA negative for PE, did show diffuse groundglass opacities scattered throughout both lungs. During her last hospital stay she was seen in consultation by pulmonology and she was placed on high-dose IV steroids. This was transitioned to an oral taper which apparently has not been taken by the patient. The patient denies any sick contacts between her date of discharge from Monday until today. She denies any fever no chills the patient is exhibiting good inspiratory effort during my interview. Nevertheless her lower extremities seem to be quite weak. According to her boyfriend she seems to have declined during her hospital stay and by the time she was discharged they relate to me that she could barely walk. This was also the reason why she was brought into the emergency department. She has been pretty much bedbound for the last 2 days and she is unable to walk without assistance the patient denied any slurred speech no hemiparesis no hemiplegia no paresthesias reported. She denies dysphagia odynophagia no chest pain palpitations or shortness of breath. She denies nausea vomiting diarrhea, no urinary symptoms. She has had lower extremity edema for a long time and this seems to be related to her steroid therapy which is chronic in nature. All of her concerns were addressed to the best of my abilities, plan of care explained detail, reassurance provided Past Medical History Cardiovascular: HTN Pulmonary: Other Past Surgical History Past Surgical History: No pertinent history Family History Family History: No Significant Social History Smoke: No ALCOHOL: none Drugs: None Current Problem List Problem List Problems Medical Problems: (1) APRIL (acute kidney injury) Status: Acute (2) Lactic acidemia Status: Acute (3) NSTEMI (non-ST elevated myocardial infarction) Status: Acute (4) Sarcoidosis Status: Acute (5) Transaminitis Status: Acute Current Medications Current Medications Current Medications Medications (Trade) Dose Ordered Sig/Jan Start Time Stop Time Status Last Admin Dose Admin Acetaminophen (Tylenol) 650 mg PRN Q6HRS PRN 09/04/20 15:45 Acetaminophen/ Hydrocodone Bitart (Lortab 5/325) 1 tab PRN Q4HRS PRN 09/04/20 15:45 Calcium Carbonate/ Glycine (Tums) 500 mg PRN Q3HRS PRN 09/04/20 15:45 Chlorhexidine Gluconate (Peridex) 15 ml BID 09/04/20 21:00 09/04/20 12:50 DC Enoxaparin Sodium (Lovenox 40mg Syringe) 40 mg Q24H 09/04/20 21:00 Etomidate (Amidate) 20 mg 1X ONCE 09/04/20 12:45 09/04/20 12:50 DC Famotidine (Pepcid) 20 mg BID 09/04/20 21:00 Fentanyl Citrate (Fentanyl 2ml Vial) 50 mcg PRN Q1HR PRN 09/04/20 12:45 09/04/20 12:50 DC Furosemide (Lasix) 40 mg 1X ONCE 09/04/20 15:00 09/04/20 15:01 DC 09/04/20 15:58 40 MG Info (Icu Electrolyte Protocol) 1 ea DAILY 09/05/20 09:00 Lactulose (Lactulose) 20 gm PRN Q12HR PRN 09/04/20 15:45 Lorazepam (Ativan Inj) 0.5 mg PRN Q6HRS PRN 09/04/20 15:45 09/04/20 16:26 0.5 MG Methylprednisolone Sodium Succinate (SOLU-Medrol 125MG VIAL) 125 mg 1X ONCE 09/04/20 13:15 09/04/20 13:16 DC 09/04/20 13:20 125 MG Morphine Sulfate (Morphine Sulfate) 2 mg PRN Q1HR PRN 09/04/20 15:45 Ondansetron HCl (Zofran) 4 mg PRN Q6HRS PRN 09/04/20 15:45 Piperacillin Sod/ Tazobactam Sod 3.375 gm/Sodium Chloride 50 ml @ 100 mls/hr 1X ONCE 09/04/20 13:00 09/04/20 13:29 DC 09/04/20 13:19 100 MLS/HR Propofol 100 ml @ 0 mls/hr CONT PRN 09/04/20 12:45 09/04/20 12:50 DC Rocuronium Pierce (Zemuron) 100 mg 1X ONCE 09/04/20 12:45 09/04/20 12:50 DC Senna/Docusate Sodium (Senna Plus) 1 tab BID 09/04/20 21:00 Sodium Chloride 1,000 ml @ 100 mls/hr Q10H 09/04/20 15:37 Sodium Chloride (Normal Saline Flush) 3 ml QSHIFT PRN 09/04/20 15:45 Vancomycin HCl 2 gm/Sodium Chloride 500 ml @ 250 mls/hr 1X ONCE 09/04/20 13:00 09/04/20 14:59 DC 09/04/20 16:29 250 MLS/HR Zolpidem Tartrate (Ambien) 5 mg PRN QHS PRN 09/04/20 15:45 Allergies Allergies Allergies Coded Allergies Type Severity Reaction Last Updated Verified Sulfa (Sulfonamide Antibiotics) Allergy Intermediate 08/29/20 Yes peanut Allergy Intermediate 08/29/20 Yes ROS Review of System CONSTITUTIONAL: No fever or chills EYES: No recent changes SKIN: No rash or itching CARDIOVASCULAR: No chest pain, syncope, palpitations, or edema RESPIRATORY: Shortness of breath GASTROINTESTINAL: No nausea, vomiting or abdominal pain NEUROLOGICAL: No headaches or weakness ENDOCRINE: No cold or heat intolerance GENITOURINARY: No urgency or frequency of urination MUSCULOSKELETAL: Positive for back pain, muscle weakness lower extremities greater than upper LYMPHATICS: No enlarged lymph nodes PSYCHIATRIC: No anxiety or depression Physical Exam Physical Exam GEN.: No apparent distress. Alert and oriented. HEENT: Head is normocephalic, atraumatic NECK: Supple. LUNGS: Clear to auscultation. HEART: RRR, S1, S2 present. Peripheral pulses intact ABDOMEN: Soft, nontender. Positive bowel sounds. EXTREMITIES: Without any cyanosis. NEUROLOGIC: Normal speech, normal tone PSYCHIATRIC: Normal affect, normal mood. SKIN: No ulcerations Vitals Vitals Vital Signs Date Time Temp Pulse Resp B/P (MAP) Pulse Ox O2 Delivery O2 Flow Rate FiO2 09/04/20 13:53 106 20 148/70 (96) 100 NonRebreather Mask 15.0 09/04/20 12:32 97.5 97.5 Labs Labs Laboratory Tests Test 09/04/20 13:40 White Blood Count 29.3 x10^3/uL (4.0-11.0) Red Blood Count 3.36 x10^6/uL (3.50-5.40) Hemoglobin 10.5 g/dL (12.0-15.5) Hematocrit 31.5 % (36.0-47.0) Mean Corpuscular Volume 94 fL (79-100) Mean Corpuscular Hemoglobin 31 pg (25-35) Mean Corpuscular Hemoglobin Concent 33 g/dL (31-37) Red Cell Distribution Width 21.0 % (11.5-14.5) Platelet Count 228 x10^3/uL (140-400) Neutrophils (%) (Auto) 86 % (31-73) Lymphocytes (%) (Auto) 3 % (24-48) Monocytes (%) (Auto) 10 % (0-9) Eosinophils (%) (Auto) 1 % (0-3) Basophils (%) (Auto) 0 % (0-3) Neutrophils # (Auto) 25.1 x10^3/uL (1.8-7.7) Lymphocytes # (Auto) 1.0 x10^3/uL (1.0-4.8) Monocytes # (Auto) 2.9 x10^3/uL (0.0-1.1) Eosinophils # (Auto) 0.3 x10^3/uL (0.0-0.7) Basophils # (Auto) 0.1 x10^3/uL (0.0-0.2) Segmented Neutrophils % 83 % (35-66) Band Neutrophils % 1 % (0-9) Lymphocytes % 7 % (24-48) Monocytes % 7 % (0-10) Metamyelocytes % 1 % (0-0) Myelocytes % 1 % (0-0) Nucleated Red Blood Cells 52 Platelet Estimate Adequate (ADEQUATE) Polychromasia Occasional Hypochromasia Slight Poikilocytosis Slight Anisocytosis Mod Target Cells Mod Sodium Level 139 mmol/L (136-145) Potassium Level 5.7 mmol/L (3.5-5.1) Chloride Level 101 mmol/L (98-107) Carbon Dioxide Level 29 mmol/L (21-32) Anion Gap 9 (6-14) Blood Urea Nitrogen 41 mg/dL (7-20) Creatinine 1.4 mg/dL (0.6-1.0) Estimated GFR (Cockcroft-Gault) 49.0 BUN/Creatinine Ratio 29 (6-20) Glucose Level 137 mg/dL (70-99) Lactic Acid Level 3.2 mmol/L (0.4-2.0) Calcium Level 8.9 mg/dL (8.5-10.1) Total Bilirubin 3.9 mg/dL (0.2-1.0) Aspartate Amino Transf (AST/SGOT) 103 U/L (15-37) Alanine Aminotransferase (ALT/SGPT) 153 U/L (14-59) Alkaline Phosphatase 377 U/L (46-116) Troponin I Quantitative 0.157 ng/mL (0.000-0.055) HL-Qic-P-Type Natriuretic Peptide > 08182 pg/mL (0-124) Total Protein 7.5 g/dL (6.4-8.2) Albumin 3.3 g/dL (3.4-5.0) Albumin/Globulin Ratio 0.8 (1.0-1.7) Laboratory Tests Test 09/04/20 13:40 White Blood Count 29.3 x10^3/uL (4.0-11.0) Red Blood Count 3.36 x10^6/uL (3.50-5.40) Hemoglobin 10.5 g/dL (12.0-15.5) Hematocrit 31.5 % (36.0-47.0) Mean Corpuscular Volume 94 fL (79-100) Mean Corpuscular Hemoglobin 31 pg (25-35) Mean Corpuscular Hemoglobin Concent 33 g/dL (31-37) Red Cell Distribution Width 21.0 % (11.5-14.5) Platelet Count 228 x10^3/uL (140-400) Neutrophils (%) (Auto) 86 % (31-73) Lymphocytes (%) (Auto) 3 % (24-48) Monocytes (%) (Auto) 10 % (0-9) Eosinophils (%) (Auto) 1 % (0-3) Basophils (%) (Auto) 0 % (0-3) Neutrophils # (Auto) 25.1 x10^3/uL (1.8-7.7) Lymphocytes # (Auto) 1.0 x10^3/uL (1.0-4.8) Monocytes # (Auto) 2.9 x10^3/uL (0.0-1.1) Eosinophils # (Auto) 0.3 x10^3/uL (0.0-0.7) Basophils # (Auto) 0.1 x10^3/uL (0.0-0.2) Segmented Neutrophils % 83 % (35-66) Band Neutrophils % 1 % (0-9) Lymphocytes % 7 % (24-48) Monocytes % 7 % (0-10) Metamyelocytes % 1 % (0-0) Myelocytes % 1 % (0-0) Nucleated Red Blood Cells 52 Platelet Estimate Adequate (ADEQUATE) Polychromasia Occasional Hypochromasia Slight Poikilocytosis Slight Anisocytosis Mod Target Cells Mod Sodium Level 139 mmol/L (136-145) Potassium Level 5.7 mmol/L (3.5-5.1) Chloride Level 101 mmol/L (98-107) Carbon Dioxide Level 29 mmol/L (21-32) Anion Gap 9 (6-14) Blood Urea Nitrogen 41 mg/dL (7-20) Creatinine 1.4 mg/dL (0.6-1.0) Estimated GFR (Cockcroft-Gault) 49.0 BUN/Creatinine Ratio 29 (6-20) Glucose Level 137 mg/dL (70-99) Lactic Acid Level 3.2 mmol/L (0.4-2.0) Calcium Level 8.9 mg/dL (8.5-10.1) Total Bilirubin 3.9 mg/dL (0.2-1.0) Aspartate Amino Transf (AST/SGOT) 103 U/L (15-37) Alanine Aminotransferase (ALT/SGPT) 153 U/L (14-59) Alkaline Phosphatase 377 U/L (46-116) Troponin I Quantitative 0.157 ng/mL (0.000-0.055) QN-Ful-J-Type Natriuretic Peptide > 41122 pg/mL (0-124) Total Protein 7.5 g/dL (6.4-8.2) Albumin 3.3 g/dL (3.4-5.0) Albumin/Globulin Ratio 0.8 (1.0-1.7) VTE Prophylaxis Ordered VTE Prophylaxis Devices: Yes VTE Pharmacological Prophylaxi: Yes Assessment/Plan Assessment/Plan Sirs criteria present on admission most likely secondary to lung pathology Healthcare associated pneumonia? Acute sarcoidosis flareup Steroid induced myopathy? Non-STEMI type II secondary to suspected infection Essential hypertension Acute renal failure most likely secondary to vasomotor nephropathy present on admission Elevated lactic acid secondary to most likely infectious process Person under investigation for COVID-19 Chronic steroid use Osteoporosis as per the patient Transaminitis which could be reactive versus fatty infiltration Hyperglycemia most likely secondary to steroid use Mild hyperkalemia with no clinical significance and no EKG changes Plan We will order CPK We will check procalcitonin level We will check creatinine kinase Inflammatory markers with C-reactive protein Follow results from coronavirus testing Resume home medications Supplemental oxygen as needed IV fluids with normal saline DVT prophylaxis with Lovenox Further recommendations based on clinical Justifications for Admission Other Justification BRUCE SOLOMON MD Sep 04, 2020 17:31
[2020-09-04 18:33] LABS: BASE EXCESS ABG 4 mmol/L (-3-3); FIO2 ABG 100; HCO3 ABG 27 mmol/L (21-28); PCO2 ABG 38 mmHg (35-46); PO2 ABG 108 mmHg (75-108); SAT O2 ABG 97 % (92-99)
--- NOTE | 2020-09-04 19:10 | EKG ---
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
[2020-09-04] MEDS ORDERED: LABETALOL 20 MG/4 ML DISP.SYRIN. IVP PRN (19:15)
[2020-09-04] MEDS: FAMOTIDINE 20 MG TABLET. PO SCH (21:00)
[2020-09-04] MEDS: SENNOSIDES/DOCUSATE 8.6/50MG TABLET. PO SCH (21:00)
[2020-09-04] MEDS ORDERED: CHLORHEXIDINE 0.12% 15 ML MOUTHWASH. MM SCH (21:00)
[2020-09-04 21:40] VITALS: BP 107/80
--- NOTE | 2020-09-04 21:40 | NUR ---
pt admitted to room 107 from ED at this time. pt alert and oriented but having SOA and trouble breathing. O2 sats are in the 80s on arrival with her on 4L/NC. placed on NRB at 15L; pt incontinent so she was cleaned and choi placed to DD. pt was just discharged from this facility three days ago, she reports no change since her last admission so admission information pulled forward from that time. pt oriented to room, unit routines, diet, call light, bathroom privileges and plan of care; she verbalizes understanding. will pass on in report, will continue to closely monitor.
[2020-09-04 22:00] VITALS: BP 108/68
[2020-09-04] MEDS: methylPREDNISolone SOD SUCC PF 125 MG/2 ML VIAL. IV SCH (22:32)
[2020-09-04] MEDS: ENOXAPARIN 40 MG/0.4 ML SYRINGE. SQ SCH (22:33)
[2020-09-04] MEDS: IV NORMAL SALINE 1000ML BAG 1,000 ML IV SCH (22:33)
[2020-09-04 23:00] VITALS: BP 109/71
[2020-09-05] VITALS (24 sets, daily range): BP systolic 96–159; BP diastolic 63–96
[2020-09-05 05:27] LABS: CALCIUM 8.5 mg/dL (8.5-10.1); CREATININE 1.5 mg/dL (0.6-1.0); GFR 45.2; POTASSIUM 5.1 mmol/L (3.5-5.1)
[2020-09-05 05:48] LABS: BASO % 0 % (0-3); EOS # 1.1 x10^3/uL (0.0-0.7); EOS % 4 % (0-3); LYMPH # 0.4 x10^3/uL (1.0-4.8); LYMPH % 1 % (24-48); MEAN CORPUSCULAR HEMOGLOBIN 31 pg (25-35); MEAN CORPUSCULAR HGB CONC 33 g/dL (31-37); MEAN CORPUSCULAR VOLUME 94 fL (79-100); MONO # 1.5 x10^3/uL (0.0-1.1); MONO % 5 % (0-9); NEUT # 25.2 x10^3/uL (1.8-7.7); NEUT % 89 % (31-73); PLATELET COUNT 173 x10^3/uL (140-400); RED BLOOD COUNT 3.18 x10^6/uL (3.50-5.40); RED CELL DISTRIBUTION WIDTH 21.1 % (11.5-14.5); WHITE BLOOD COUNT 28.2 x10^3/uL (4.0-11.0)
--- NOTE | 2020-09-05 06:04 | PDOC ---
PULMONARY PROGRESS NOTES DATE: 09/05/20 TIME: 05:56 Vitals Vital Signs Date Time Temp Pulse Resp B/P (MAP) Pulse Ox O2 Delivery O2 Flow Rate FiO2 09/05/20 04:00 99.4 100 24 101/69 (80) 100 NonRebreather Mask 15.0 99.4 General: Alert, No acute distress Labs Laboratory Tests Test 09/04/20 12:47 09/04/20 13:40 09/05/20 05:00 O2 Saturation 97 % (92-99) Arterial Blood pH 7.47 (7.35-7.45) Arterial Blood pCO2 at Patient Temp 38 mmHg (35-46) Arterial Blood pO2 at Patient Temp 108 mmHg (75-108) Arterial Blood HCO3 27 mmol/L (21-28) Arterial Blood Base Excess 4 mmol/L (-3-3) FiO2 100 White Blood Count 29.3 x10^3/uL (4.0-11.0) Red Blood Count 3.36 x10^6/uL (3.50-5.40) Hemoglobin 10.5 g/dL (12.0-15.5) Hematocrit 31.5 % (36.0-47.0) Mean Corpuscular Volume 94 fL (79-100) Mean Corpuscular Hemoglobin 31 pg (25-35) Mean Corpuscular Hemoglobin Concent 33 g/dL (31-37) Red Cell Distribution Width 21.0 % (11.5-14.5) Platelet Count 228 x10^3/uL (140-400) Neutrophils (%) (Auto) 86 % (31-73) Lymphocytes (%) (Auto) 3 % (24-48) Monocytes (%) (Auto) 10 % (0-9) Eosinophils (%) (Auto) 1 % (0-3) Basophils (%) (Auto) 0 % (0-3) Neutrophils # (Auto) 25.1 x10^3/uL (1.8-7.7) Lymphocytes # (Auto) 1.0 x10^3/uL (1.0-4.8) Monocytes # (Auto) 2.9 x10^3/uL (0.0-1.1) Eosinophils # (Auto) 0.3 x10^3/uL (0.0-0.7) Basophils # (Auto) 0.1 x10^3/uL (0.0-0.2) Segmented Neutrophils % 83 % (35-66) Band Neutrophils % 1 % (0-9) Lymphocytes % 7 % (24-48) Monocytes % 7 % (0-10) Metamyelocytes % 1 % (0-0) Myelocytes % 1 % (0-0) Nucleated Red Blood Cells 52 Platelet Estimate Adequate (ADEQUATE) Polychromasia Occasional Hypochromasia Slight Poikilocytosis Slight Anisocytosis Mod Target Cells Mod Sodium Level 139 mmol/L (136-145) 141 mmol/L (136-145) Potassium Level 5.7 mmol/L (3.5-5.1) 5.1 mmol/L (3.5-5.1) Chloride Level 101 mmol/L (98-107) 103 mmol/L (98-107) Carbon Dioxide Level 29 mmol/L (21-32) 30 mmol/L (21-32) Anion Gap 9 (6-14) 8 (6-14) Blood Urea Nitrogen 41 mg/dL (7-20) 47 mg/dL (7-20) Creatinine 1.4 mg/dL (0.6-1.0) 1.5 mg/dL (0.6-1.0) Estimated GFR (Cockcroft-Gault) 49.0 45.2 BUN/Creatinine Ratio 29 (6-20) Glucose Level 137 mg/dL (70-99) 174 mg/dL (70-99) Lactic Acid Level 3.2 mmol/L (0.4-2.0) 1.2 mmol/L (0.4-2.0) Calcium Level 8.9 mg/dL (8.5-10.1) 8.5 mg/dL (8.5-10.1) Total Bilirubin 3.9 mg/dL (0.2-1.0) Aspartate Amino Transf (AST/SGOT) 103 U/L (15-37) Alanine Aminotransferase (ALT/SGPT) 153 U/L (14-59) Alkaline Phosphatase 377 U/L (46-116) Creatine Kinase 67 U/L (26-192) Troponin I Quantitative 0.157 ng/mL (0.000-0.055) C-Reactive Protein, Quantitative 256.1 mg/L (0-3.3) LV-Xjf-B-Type Natriuretic Peptide > 63206 pg/mL (0-124) Total Protein 7.5 g/dL (6.4-8.2) Albumin 3.3 g/dL (3.4-5.0) Albumin/Globulin Ratio 0.8 (1.0-1.7) Procalcitonin 1.30 ng/mL (0.00-0.10) Laboratory Tests Test 09/04/20 12:47 09/04/20 13:40 09/05/20 05:00 O2 Saturation 97 % (92-99) Arterial Blood pH 7.47 (7.35-7.45) Arterial Blood pCO2 at Patient Temp 38 mmHg (35-46) Arterial Blood pO2 at Patient Temp 108 mmHg (75-108) Arterial Blood HCO3 27 mmol/L (21-28) Arterial Blood Base Excess 4 mmol/L (-3-3) FiO2 100 White Blood Count 29.3 x10^3/uL (4.0-11.0) Red Blood Count 3.36 x10^6/uL (3.50-5.40) Hemoglobin 10.5 g/dL (12.0-15.5) Hematocrit 31.5 % (36.0-47.0) Mean Corpuscular Volume 94 fL (79-100) Mean Corpuscular Hemoglobin 31 pg (25-35) Mean Corpuscular Hemoglobin Concent 33 g/dL (31-37) Red Cell Distribution Width 21.0 % (11.5-14.5) Platelet Count 228 x10^3/uL (140-400) Neutrophils (%) (Auto) 86 % (31-73) Lymphocytes (%) (Auto) 3 % (24-48) Monocytes (%) (Auto) 10 % (0-9) Eosinophils (%) (Auto) 1 % (0-3) Basophils (%) (Auto) 0 % (0-3) Neutrophils # (Auto) 25.1 x10^3/uL (1.8-7.7) Lymphocytes # (Auto) 1.0 x10^3/uL (1.0-4.8) Monocytes # (Auto) 2.9 x10^3/uL (0.0-1.1) Eosinophils # (Auto) 0.3 x10^3/uL (0.0-0.7) Basophils # (Auto) 0.1 x10^3/uL (0.0-0.2) Segmented Neutrophils % 83 % (35-66) Band Neutrophils % 1 % (0-9) Lymphocytes % 7 % (24-48) Monocytes % 7 % (0-10) Metamyelocytes % 1 % (0-0) Myelocytes % 1 % (0-0) Nucleated Red Blood Cells 52 Platelet Estimate Adequate (ADEQUATE) Polychromasia Occasional Hypochromasia Slight Poikilocytosis Slight Anisocytosis Mod Target Cells Mod Sodium Level 139 mmol/L (136-145) 141 mmol/L (136-145) Potassium Level 5.7 mmol/L (3.5-5.1) 5.1 mmol/L (3.5-5.1) Chloride Level 101 mmol/L (98-107) 103 mmol/L (98-107) Carbon Dioxide Level 29 mmol/L (21-32) 30 mmol/L (21-32) Anion Gap 9 (6-14) 8 (6-14) Blood Urea Nitrogen 41 mg/dL (7-20) 47 mg/dL (7-20) Creatinine 1.4 mg/dL (0.6-1.0) 1.5 mg/dL (0.6-1.0) Estimated GFR (Cockcroft-Gault) 49.0 45.2 BUN/Creatinine Ratio 29 (6-20) Glucose Level 137 mg/dL (70-99) 174 mg/dL (70-99) Lactic Acid Level 3.2 mmol/L (0.4-2.0) 1.2 mmol/L (0.4-2.0) Calcium Level 8.9 mg/dL (8.5-10.1) 8.5 mg/dL (8.5-10.1) Total Bilirubin 3.9 mg/dL (0.2-1.0) Aspartate Amino Transf (AST/SGOT) 103 U/L (15-37) Alanine Aminotransferase (ALT/SGPT) 153 U/L (14-59) Alkaline Phosphatase 377 U/L (46-116) Creatine Kinase 67 U/L (26-192) Troponin I Quantitative 0.157 ng/mL (0.000-0.055) C-Reactive Protein, Quantitative 256.1 mg/L (0-3.3) NZ-Sgr-O-Type Natriuretic Peptide > 74366 pg/mL (0-124) Total Protein 7.5 g/dL (6.4-8.2) Albumin 3.3 g/dL (3.4-5.0) Albumin/Globulin Ratio 0.8 (1.0-1.7) Procalcitonin 1.30 ng/mL (0.00-0.10) Medications Active Scripts Medications Dose Route/Sig Max Daily Dose Days Date Category Lyza (Norethindrone) 0.35 Mg Tablet 0.35 Mg PO DAILY 08/29/20 Reported Xopenex (Levalbuterol HCl) 1.25 Mg/3 Ml Vial.neb 1 Vial NEB PRN Q6HRS PRN 20 08/29/20 Reported Diltiazem 24Hr ER (LA) (Diltiazem HCl) 240 Mg Tab.er.24h 1 Tab PO DAILY 30 08/29/20 Reported Metoprolol Succinate ( Xl ) (Metoprolol Succinate) 100 Mg Tab.er.24h 1 Tab PO DAILY 08/29/20 Reported Impression . Full consult dictated Patient failed outpatient therapy. Requires 100% nonrebreather We will continue treating for flareup of her sarcoid increasing steroids Cover for both gram-positive and gram-negative pneumonia. JOSE ONEIL MD Sep 05, 2020 06:03
[2020-09-05] MEDS: IV NORMAL SALINE 1000ML BAG 1,000 ML IV SCH ×3 (06:23→21:41)
[2020-09-05] MEDS: methylPREDNISolone SOD SUCC PF 125 MG/2 ML VIAL. IV SCH ×3 (06:23→21:40)
--- NOTE | 2020-09-05 06:46 | CONS ---
DATE OF CONSULTATION: 09/05/2020 ATTENDING PHYSICIAN: Dr. Phillips. REASON FOR CONSULTATION: The patient is seen in pulmonary consultation at the request of Dr. Phillips for [id number] hypoxemic respiratory failure, history of sarcoid. HISTORY OF PRESENT ILLNESS: The patient is a 45-year-old who was recently hospitalized here at [facility] early part of August. She was discharged home 2 days ago with prednisone 30 mg a day, vitamin D, oxygen supplementation. The patient was due to follow up in the office with a repeat CT chest in 8 weeks. She failed outpatient treatment and was readmitted. She is now on a nonrebreather for increasing shortness of breath and decreased saturation. She was diagnosed with sarcoid approximately 22 years ago in [place], status post lung biopsy. She normally takes 5 mg of prednisone a day. As indicated above, she was recently hospitalized here at [facility]. Seven days ago, she had a CT angiogram, which revealed some alveolitis. No evidence of pulmonary embolism. At that time, she tested negative for COVID-19. The patient denies fever or chills. No productive cough. She is just more short of breath and weak. She also noted decreased saturation on the oxygen on 3 liters of oxygen at home. 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 Per patient she has been on other immunosuppressive agents in the past. She also has a history of hypertension. PAST SURGICAL HISTORY: As above, status post lung biopsy diagnosed with sarcoid. ALLERGIES: LISTED TO SULFA AND PEANUTS. MEDICATIONS: Medication list was reviewed. At home the patient was at 30 mg of prednisone a day. She is usually on 5. REVIEW OF SYSTEMS: CONSTITUTIONAL: No fever or chills. EYES: No change in visual acuity. HEENT: No nasal congestion or sore throat. PULMONARY: As indicated above. CARDIOVASCULAR: No chest pain. No pressure. GASTROINTESTINAL: No nausea, vomiting, diarrhea. GENITOURINARY: No dysuria or frequency. MUSCULOSKELETAL: No localized muscle aches or joint pains. SKIN: No new skin rashes. NEUROLOGIC: No headaches, diplopia or blurred vision. PHYSICAL EXAMINATION: GENERAL: The patient was in the intensive care unit on nonrebreather. VITAL SIGNS: Stable. O2 saturation was greater than 92%. T-max was 99.4. HEENT: Eyes, the sclerae were nonicteric. NECK: Jugular venous distention was not elevated. No lymphadenopathy. CHEST: Full expansion. LUNGS: Crackles throughout both lung navarro. CARDIOVASCULAR: Regular rate and rhythm with S1, S2; no S3. ABDOMEN: Soft, nontender, nondistended. EXTREMITIES: No clubbing, cyanosis. Minimal edema. NEUROLOGICAL: The patient was awake, alert, following commands. A detailed neuro exam was not performed. LABORATORY DATA: White count was elevated at 29,000. Arterial blood gas on nonrebreather revealed a PaO2 of 108, pH was 7.47. Electrolytes were noted. BUN and creatinine were elevated. The patient came in with a normal BUN and creatinine of 1.3 back on 08/29. BNP was 6540. Procalcitonin now is 1.30. C-reactive protein was elevated. IMAGING: Chest x-ray was reviewed. In comparison to the previous x-ray, there is persistent perihilar interstitial changes. IMPRESSION: 1. Acute on chronic hypoxemic respiratory failure. 2. Acute exacerbation of sarcoid. 3. Abnormal chest x-ray. 4. Possible pneumonia, gram negative, gram-positive. 5. Acute kidney injury. 6. Abnormal CT chest. PLAN: Justification for admission include patient failing outpatient therapy. She was on 30 mg of prednisone a day. She is normally on 5 mg a day. She presents now requiring nonrebreather and ICU admission. Chest x-ray reviewed, there is persistent infiltrates. PLAN: 1. Increase steroids. 2. Cover for both gram-negative and gram-positive pneumonia. 3. Possible bronchoscopy once the patient's oxygen needs are diminished, rule out atypical infection. 4. We will consider a different immunosuppressive agents such as CellCept or methotrexate. 5. DVT and GI prophylaxis. I do appreciate the privilege in sharing in the patient's care. Total cumulative critical care time of 50 minutes, start time 05:10 am and end at 6:02 a[address]m. JOSE ONEIL MD DR: VICTOR MANUEL/charles JOB#: [id number] / [id number]
[2020-09-05] MEDS ORDERED: ALBUTEROL SULFATE 2.5 MG/3 ML NEBU. NEB PRN (07:15)
[2020-09-05] MEDS: SENNOSIDES/DOCUSATE 8.6/50MG TABLET. PO SCH ×2 (08:45→21:40)
[2020-09-05] MEDS: FAMOTIDINE 20 MG TABLET. PO SCH ×2 (08:45→21:41)
[2020-09-05] MEDS: ELECTROLYTE (ICU) PROTOCOL. MC SCH (08:46)
--- NOTE | 2020-09-05 08:57 | PDOC ---
PROGRESS NOTES Date of Service: DATE: 09/05/20 TIME: 08:53 Chief Complaint Chief Complaint Assessment/Plan Sirs criteria present on admission most likely secondary to lung pathology Healthcare associated pneumonia? Acute sarcoidosis flareup Steroid induced myopathy pretty much ruled out, patient moving extremities today better than yesterday, CK level noted. Non-STEMI type II secondary to suspected infection, demeand ischemia, patient with no angina type of symptoms. Essential hypertension Acute renal failure most likely secondary to vasomotor nephropathy present on admission Elevated lactic acid secondary to most likely infectious process Person under investigation for COVID-19 Chronic steroid use Osteoporosis as per the patient Transaminitis which could be reactive versus fatty infiltration Hyperglycemia most likely secondary to steroid use Mild hyperkalemia with no clinical significance and no EKG changes Plan Procalcitonin elevated, will continue Zosyn and Vancomycin for HCAP continue with steroid therapy Follow results from coronavirus testing Resume home medications Supplemental oxygen as needed IV fluids with normal saline DVT prophylaxis with Lovenox Further recommendations based on clinical History of Present Illness History of Present Illness History of Present Illness 45yo F w/ PMHx sarcoidosis, HTN who presents with chief complaint of progressive shortness of breath over the past several days. She notes that she is more short of breath than usual with exertion. She denies any shortness of breath at rest. Denies chest pain. Denies syncope. States this feels similar to previous sarcoidosis flares. She does take prednisone daily. She does note that she recently traveled from [place] to visit family in the area, she drove herself. No history of VTE. Denies any swelling to the legs. Denies any known exposure to coronavirus. Denies fevers.Denies any abdominal pain. Denies syncope. Denies any cardiac history or invasive cardiac disease. No nausea no vomiting. Denies diaphoresis. No other complaints. Hypoxic to 73% on room air in ED. She does not wear home O2. CXR with diffuse bilateral interstitial opacities. CTPA negative for PE, did show diffuse groundglass opacities scattered throughout both lungs. During her last hospital stay she was seen in consultation by pulmonology and she was placed on high-dose IV steroids. This was transitioned to an oral taper which apparently has not been taken by the patient. The patient denies any sick contacts between her date of discharge from Monday until today. She denies any fever no chills the patient is exhibiting good inspiratory effort during my interview. Nevertheless her lower extremities seem to be quite weak. According to her boyfriend she seems to have declined during her hospital stay and by the time she was discharged they relate to me that she could barely walk. This was also the reason why she was brought into the emergency department. She has been pretty much bedbound for the last 2 days and she is unable to walk without assistance the patient denied any slurred speech no hemiparesis no hemiplegia no paresthesias reported. She denies dysphagia odynophagia no chest pain palpitations or shortness of breath. She denies nausea vomiting diarrhea, no urinary symptoms. She has had lower extremity edema for a long time and this seems to be related to her steroid therapy which is chronic in nature. All of her concerns were addressed to the best of my abilities, plan of care explained detail, reassurance provided 09/05: No acute events reported overnight, case discussed with nursing staff patient in no acute distress no complaints during my visit Vitals Vitals Vital Signs Date Time Temp Pulse Resp B/P (MAP) Pulse Ox O2 Delivery O2 Flow Rate FiO2 09/05/20 06:00 118 28 110/74 (86) 100 NonRebreather Mask 15.0 09/05/20 04:00 99.4 99.4 Physical Exam Physical Exam Gen.: well-developed well-nourished in no apparent distress Head: Normal shape atraumatic Eyes: Pupils equal reactive to light and accommodation, normal conjunctivae and lids Ears: Normal shape Nose: Normal shape no trauma Mouth: No exudates of the back of throat no thrush no lesions Neck: Supple no JVD no carotid bruit or lymphadenopathy no thyromegaly Chest: Lungs clear to auscultation with good inspiratory effort no crackles rales or rhonchi Cardiovascular: S1-S2 regular rhythm no murmurs gallops or rubs Abdomen: Bowel sounds present soft nontender no hepatosplenomegaly appreciated sign Extremities: No clubbing no cyanosis no edema peripheral pulses palpated bilaterally Neurological: Alert awake oriented in person time place and situation, cranial nerves II through XII intact, no motor or sensory deficits appreciated Psych: Appropriate mood, cooperative Labs LABS Laboratory Tests Test 09/04/20 12:47 09/04/20 13:40 09/05/20 05:00 O2 Saturation 97 % (92-99) Arterial Blood pH 7.47 (7.35-7.45) Arterial Blood pCO2 at Patient Temp 38 mmHg (35-46) Arterial Blood pO2 at Patient Temp 108 mmHg (75-108) Arterial Blood HCO3 27 mmol/L (21-28) Arterial Blood Base Excess 4 mmol/L (-3-3) FiO2 100 White Blood Count 29.3 x10^3/uL (4.0-11.0) 28.2 x10^3/uL (4.0-11.0) Red Blood Count 3.36 x10^6/uL (3.50-5.40) 3.18 x10^6/uL (3.50-5.40) Hemoglobin 10.5 g/dL (12.0-15.5) 10.0 g/dL (12.0-15.5) Hematocrit 31.5 % (36.0-47.0) 30.0 % (36.0-47.0) Mean Corpuscular Volume 94 fL (79-100) 94 fL (79-100) Mean Corpuscular Hemoglobin 31 pg (25-35) 31 pg (25-35) Mean Corpuscular Hemoglobin Concent 33 g/dL (31-37) 33 g/dL (31-37) Red Cell Distribution Width 21.0 % (11.5-14.5) 21.1 % (11.5-14.5) Platelet Count 228 x10^3/uL (140-400) 173 x10^3/uL (140-400) Neutrophils (%) (Auto) 86 % (31-73) 89 % (31-73) Lymphocytes (%) (Auto) 3 % (24-48) 1 % (24-48) Monocytes (%) (Auto) 10 % (0-9) 5 % (0-9) Eosinophils (%) (Auto) 1 % (0-3) 4 % (0-3) Basophils (%) (Auto) 0 % (0-3) 0 % (0-3) Neutrophils # (Auto) 25.1 x10^3/uL (1.8-7.7) 25.2 x10^3/uL (1.8-7.7) Lymphocytes # (Auto) 1.0 x10^3/uL (1.0-4.8) 0.4 x10^3/uL (1.0-4.8) Monocytes # (Auto) 2.9 x10^3/uL (0.0-1.1) 1.5 x10^3/uL (0.0-1.1) Eosinophils # (Auto) 0.3 x10^3/uL (0.0-0.7) 1.1 x10^3/uL (0.0-0.7) Basophils # (Auto) 0.1 x10^3/uL (0.0-0.2) 0.0 x10^3/uL (0.0-0.2) Segmented Neutrophils % 83 % (35-66) Band Neutrophils % 1 % (0-9) Lymphocytes % 7 % (24-48) Monocytes % 7 % (0-10) Metamyelocytes % 1 % (0-0) Myelocytes % 1 % (0-0) Nucleated Red Blood Cells 52 Platelet Estimate Adequate (ADEQUATE) Polychromasia Occasional Hypochromasia Slight Poikilocytosis Slight Anisocytosis Mod Target Cells Mod Sodium Level 139 mmol/L (136-145) 141 mmol/L (136-145) Potassium Level 5.7 mmol/L (3.5-5.1) 5.1 mmol/L (3.5-5.1) Chloride Level 101 mmol/L (98-107) 103 mmol/L (98-107) Carbon Dioxide Level 29 mmol/L (21-32) 30 mmol/L (21-32) Anion Gap 9 (6-14) 8 (6-14) Blood Urea Nitrogen 41 mg/dL (7-20) 47 mg/dL (7-20) Creatinine 1.4 mg/dL (0.6-1.0) 1.5 mg/dL (0.6-1.0) Estimated GFR (Cockcroft-Gault) 49.0 45.2 BUN/Creatinine Ratio 29 (6-20) Glucose Level 137 mg/dL (70-99) 174 mg/dL (70-99) Lactic Acid Level 3.2 mmol/L (0.4-2.0) 1.2 mmol/L (0.4-2.0) Calcium Level 8.9 mg/dL (8.5-10.1) 8.5 mg/dL (8.5-10.1) Total Bilirubin 3.9 mg/dL (0.2-1.0) Aspartate Amino Transf (AST/SGOT) 103 U/L (15-37) Alanine Aminotransferase (ALT/SGPT) 153 U/L (14-59) Alkaline Phosphatase 377 U/L (46-116) Creatine Kinase 67 U/L (26-192) Troponin I Quantitative 0.157 ng/mL (0.000-0.055) 0.129 ng/mL (0.000-0.055) C-Reactive Protein, Quantitative 256.1 mg/L (0-3.3) QN-Dmi-U-Type Natriuretic Peptide > 27679 pg/mL (0-124) Total Protein 7.5 g/dL (6.4-8.2) Albumin 3.3 g/dL (3.4-5.0) Albumin/Globulin Ratio 0.8 (1.0-1.7) Procalcitonin 1.30 ng/mL (0.00-0.10) Review of Systems Review of Systems 13 as per HPI otherwise 10 point review of systems is negative Assessment and Plan Assessmemt and Plan Problems Medical Problems: (1) APRIL (acute kidney injury) Status: Acute (2) Lactic acidemia Status: Acute (3) NSTEMI (non-ST elevated myocardial infarction) Status: Acute (4) Sarcoidosis Status: Acute (5) Transaminitis Status: Acute Comment Review of Relevant I have reviewed the following items kita (where applicable) has been applied. Labs Laboratory Tests Test 09/04/20 12:47 09/04/20 13:40 09/05/20 05:00 O2 Saturation 97 % (92-99) Arterial Blood pH 7.47 (7.35-7.45) Arterial Blood pCO2 at Patient Temp 38 mmHg (35-46) Arterial Blood pO2 at Patient Temp 108 mmHg (75-108) Arterial Blood HCO3 27 mmol/L (21-28) Arterial Blood Base Excess 4 mmol/L (-3-3) FiO2 100 White Blood Count 29.3 x10^3/uL (4.0-11.0) 28.2 x10^3/uL (4.0-11.0) Red Blood Count 3.36 x10^6/uL (3.50-5.40) 3.18 x10^6/uL (3.50-5.40) Hemoglobin 10.5 g/dL (12.0-15.5) 10.0 g/dL (12.0-15.5) Hematocrit 31.5 % (36.0-47.0) 30.0 % (36.0-47.0) Mean Corpuscular Volume 94 fL (79-100) 94 fL (79-100) Mean Corpuscular Hemoglobin 31 pg (25-35) 31 pg (25-35) Mean Corpuscular Hemoglobin Concent 33 g/dL (31-37) 33 g/dL (31-37) Red Cell Distribution Width 21.0 % (11.5-14.5) 21.1 % (11.5-14.5) Platelet Count 228 x10^3/uL (140-400) 173 x10^3/uL (140-400) Neutrophils (%) (Auto) 86 % (31-73) 89 % (31-73) Lymphocytes (%) (Auto) 3 % (24-48) 1 % (24-48) Monocytes (%) (Auto) 10 % (0-9) 5 % (0-9) Eosinophils (%) (Auto) 1 % (0-3) 4 % (0-3) Basophils (%) (Auto) 0 % (0-3) 0 % (0-3) Neutrophils # (Auto) 25.1 x10^3/uL (1.8-7.7) 25.2 x10^3/uL (1.8-7.7) Lymphocytes # (Auto) 1.0 x10^3/uL (1.0-4.8) 0.4 x10^3/uL (1.0-4.8) Monocytes # (Auto) 2.9 x10^3/uL (0.0-1.1) 1.5 x10^3/uL (0.0-1.1) Eosinophils # (Auto) 0.3 x10^3/uL (0.0-0.7) 1.1 x10^3/uL (0.0-0.7) Basophils # (Auto) 0.1 x10^3/uL (0.0-0.2) 0.0 x10^3/uL (0.0-0.2) Segmented Neutrophils % 83 % (35-66) Band Neutrophils % 1 % (0-9) Lymphocytes % 7 % (24-48) Monocytes % 7 % (0-10) Metamyelocytes % 1 % (0-0) Myelocytes % 1 % (0-0) Nucleated Red Blood Cells 52 Platelet Estimate Adequate (ADEQUATE) Polychromasia Occasional Hypochromasia Slight Poikilocytosis Slight Anisocytosis Mod Target Cells Mod Sodium Level 139 mmol/L (136-145) 141 mmol/L (136-145) Potassium Level 5.7 mmol/L (3.5-5.1) 5.1 mmol/L (3.5-5.1) Chloride Level 101 mmol/L (98-107) 103 mmol/L (98-107) Carbon Dioxide Level 29 mmol/L (21-32) 30 mmol/L (21-32) Anion Gap 9 (6-14) 8 (6-14) Blood Urea Nitrogen 41 mg/dL (7-20) 47 mg/dL (7-20) Creatinine 1.4 mg/dL (0.6-1.0) 1.5 mg/dL (0.6-1.0) Estimated GFR (Cockcroft-Gault) 49.0 45.2 BUN/Creatinine Ratio 29 (6-20) Glucose Level 137 mg/dL (70-99) 174 mg/dL (70-99) Lactic Acid Level 3.2 mmol/L (0.4-2.0) 1.2 mmol/L (0.4-2.0) Calcium Level 8.9 mg/dL (8.5-10.1) 8.5 mg/dL (8.5-10.1) Total Bilirubin 3.9 mg/dL (0.2-1.0) Aspartate Amino Transf (AST/SGOT) 103 U/L (15-37) Alanine Aminotransferase (ALT/SGPT) 153 U/L (14-59) Alkaline Phosphatase 377 U/L (46-116) Creatine Kinase 67 U/L (26-192) Troponin I Quantitative 0.157 ng/mL (0.000-0.055) 0.129 ng/mL (0.000-0.055) C-Reactive Protein, Quantitative 256.1 mg/L (0-3.3) WY-Weg-Y-Type Natriuretic Peptide > 72898 pg/mL (0-124) Total Protein 7.5 g/dL (6.4-8.2) Albumin 3.3 g/dL (3.4-5.0) Albumin/Globulin Ratio 0.8 (1.0-1.7) Procalcitonin 1.30 ng/mL (0.00-0.10) Laboratory Tests Test 09/04/20 12:47 09/04/20 13:40 09/05/20 05:00 O2 Saturation 97 % (92-99) Arterial Blood pH 7.47 (7.35-7.45) Arterial Blood pCO2 at Patient Temp 38 mmHg (35-46) Arterial Blood pO2 at Patient Temp 108 mmHg (75-108) Arterial Blood HCO3 27 mmol/L (21-28) Arterial Blood Base Excess 4 mmol/L (-3-3) FiO2 100 White Blood Count 29.3 x10^3/uL (4.0-11.0) 28.2 x10^3/uL (4.0-11.0) Red Blood Count 3.36 x10^6/uL (3.50-5.40) 3.18 x10^6/uL (3.50-5.40) Hemoglobin 10.5 g/dL (12.0-15.5) 10.0 g/dL (12.0-15.5) Hematocrit 31.5 % (36.0-47.0) 30.0 % (36.0-47.0) Mean Corpuscular Volume 94 fL (79-100) 94 fL (79-100) Mean Corpuscular Hemoglobin 31 pg (25-35) 31 pg (25-35) Mean Corpuscular Hemoglobin Concent 33 g/dL (31-37) 33 g/dL (31-37) Red Cell Distribution Width 21.0 % (11.5-14.5) 21.1 % (11.5-14.5) Platelet Count 228 x10^3/uL (140-400) 173 x10^3/uL (140-400) Neutrophils (%) (Auto) 86 % (31-73) 89 % (31-73) Lymphocytes (%) (Auto) 3 % (24-48) 1 % (24-48) Monocytes (%) (Auto) 10 % (0-9) 5 % (0-9) Eosinophils (%) (Auto) 1 % (0-3) 4 % (0-3) Basophils (%) (Auto) 0 % (0-3) 0 % (0-3) Neutrophils # (Auto) 25.1 x10^3/uL (1.8-7.7) 25.2 x10^3/uL (1.8-7.7) Lymphocytes # (Auto) 1.0 x10^3/uL (1.0-4.8) 0.4 x10^3/uL (1.0-4.8) Monocytes # (Auto) 2.9 x10^3/uL (0.0-1.1) 1.5 x10^3/uL (0.0-1.1) Eosinophils # (Auto) 0.3 x10^3/uL (0.0-0.7) 1.1 x10^3/uL (0.0-0.7) Basophils # (Auto) 0.1 x10^3/uL (0.0-0.2) 0.0 x10^3/uL (0.0-0.2) Segmented Neutrophils % 83 % (35-66) Band Neutrophils % 1 % (0-9) Lymphocytes % 7 % (24-48) Monocytes % 7 % (0-10) Metamyelocytes % 1 % (0-0) Myelocytes % 1 % (0-0) Nucleated Red Blood Cells 52 Platelet Estimate Adequate (ADEQUATE) Polychromasia Occasional Hypochromasia Slight Poikilocytosis Slight Anisocytosis Mod Target Cells Mod Sodium Level 139 mmol/L (136-145) 141 mmol/L (136-145) Potassium Level 5.7 mmol/L (3.5-5.1) 5.1 mmol/L (3.5-5.1) Chloride Level 101 mmol/L (98-107) 103 mmol/L (98-107) Carbon Dioxide Level 29 mmol/L (21-32) 30 mmol/L (21-32) Anion Gap 9 (6-14) 8 (6-14) Blood Urea Nitrogen 41 mg/dL (7-20) 47 mg/dL (7-20) Creatinine 1.4 mg/dL (0.6-1.0) 1.5 mg/dL (0.6-1.0) Estimated GFR (Cockcroft-Gault) 49.0 45.2 BUN/Creatinine Ratio 29 (6-20) Glucose Level 137 mg/dL (70-99) 174 mg/dL (70-99) Lactic Acid Level 3.2 mmol/L (0.4-2.0) 1.2 mmol/L (0.4-2.0) Calcium Level 8.9 mg/dL (8.5-10.1) 8.5 mg/dL (8.5-10.1) Total Bilirubin 3.9 mg/dL (0.2-1.0) Aspartate Amino Transf (AST/SGOT) 103 U/L (15-37) Alanine Aminotransferase (ALT/SGPT) 153 U/L (14-59) Alkaline Phosphatase 377 U/L (46-116) Creatine Kinase 67 U/L (26-192) Troponin I Quantitative 0.157 ng/mL (0.000-0.055) 0.129 ng/mL (0.000-0.055) C-Reactive Protein, Quantitative 256.1 mg/L (0-3.3) OX-Odg-R-Type Natriuretic Peptide > 32159 pg/mL (0-124) Total Protein 7.5 g/dL (6.4-8.2) Albumin 3.3 g/dL (3.4-5.0) Albumin/Globulin Ratio 0.8 (1.0-1.7) Procalcitonin 1.30 ng/mL (0.00-0.10) Medications Current Medications Rocuronium [place] (Zemuron) 100 mg 1X ONCE IV ; Start 09/04/20 at 12:45; Stop 09/04/20 at 12:50; Status DC Etomidate (Amidate) 20 mg 1X ONCE IV ; Start 09/04/20 at 12:45; Stop 09/04/20 at 12:50; Status DC Fentanyl Citrate 30 ml @ 0 mls/hr CONT PRN IV SEE PROTOCOL; Start 09/04/20 at 12:45; Stop 09/04/20 at 12:50; Status DC Propofol 100 ml @ 0 mls/hr CONT PRN IV SEE PROTOCOL; Start 09/04/20 at 12:45; Stop 09/04/20 at 12:50; Status DC Fentanyl Citrate (Fentanyl 2ml Vial) 25 mcg PRN Q1HR PRN IV SEE COMMENTS; Start 09/04/20 at 12:45; Stop 09/04/20 at 12:50; Status DC Fentanyl Citrate (Fentanyl 2ml Vial) 50 mcg PRN Q1HR PRN IV SEE COMMENTS; Start 09/04/20 at 12:45; Stop 09/04/20 at 12:50; Status DC Chlorhexidine Gluconate (Peridex) 15 ml BID MM ; Start 09/04/20 at 21:00; Stop 09/04/20 at 12:50; Status DC Morphine Sulfate (Morphine Sulfate) 2 mg PRN Q1HR PRN IV SEE COMMENTS.; Start 09/04/20 at 12:45; Stop 09/04/20 at 12:50; Status DC Morphine Sulfate (Morphine Sulfate) 4 mg PRN Q1HR PRN IV SEE COMMENTS.; Start 09/04/20 at 12:45; Stop 09/04/20 at 12:50; Status DC Piperacillin Sod/ Tazobactam Sod 3.375 gm/Sodium Chloride 50 ml @ 100 mls/hr 1X ONCE IV Last administered on 09/04/20at 13:19; Start 09/04/20 at 13:00; Stop 09/04/20 at 13:29; Status DC Vancomycin HCl 2 gm/Sodium Chloride 500 ml @ 250 mls/hr 1X ONCE IV Last administered on 09/04/20at 16:29; Start 09/04/20 at 13:00; Stop 09/04/20 at 14:59; Status DC Methylprednisolone Sodium Succinate (SOLU-Medrol 125MG VIAL) 125 mg 1X ONCE IV Last administered on 09/04/20at 13:20; Start 09/04/20 at 13:15; Stop 09/04/20 at 13:16; Status DC Furosemide (Lasix) 40 mg 1X ONCE IVP Last administered on 09/04/20at 15:58; Start 09/04/20 at 15:00; Stop 09/04/20 at 15:01; Status DC Acetaminophen (Tylenol) 650 mg PRN Q6HRS PRN PO Headaches, Temp > 101.5'; Start 09/04/20 at 15:45 Lorazepam (Ativan Inj) 0.5 mg PRN Q6HRS PRN IVP ANXIETY / AGITATION Last administered on 09/04/20at 16:26; Start 09/04/20 at 15:45 Ondansetron HCl (Zofran) 4 mg PRN Q6HRS PRN IVP NAUSEA/VOMITING; Start 09/04/20 at 15:45 Calcium Carbonate/ Glycine (Tums) 500 mg PRN Q3HRS PRN PO HEARTBURN / GAS; Start 09/04/20 at 15:45 Famotidine (Pepcid) 20 mg BID PO Last administered on 09/05/20at 08:45; Start 09/04/20 at 21:00 Zolpidem Tartrate (Ambien) 5 mg PRN QHS PRN PO INSOMNIA, MAY REPEAT IN 1HR; Start 09/04/20 at 15:45 Info (Icu Electrolyte Protocol) 1 ea DAILY MC Last administered on 09/05/20at 08:46; Start 09/05/20 at 09:00 Enoxaparin Sodium (Lovenox 40mg Syringe) 40 mg Q24H SQ Last administered on 09/04/20at 22:33; Start 09/04/20 at 21:00 Sodium Chloride (Normal Saline Flush) 3 ml QSHIFT PRN IV AFTER MEDS AND BLOOD DRAWS; Start 09/04/20 at 15:45 Sodium Chloride 1,000 ml @ 100 mls/hr Q10H IV Last administered on 09/05/20at 06:23; Start 09/04/20 at 15:37 Acetaminophen/ Hydrocodone Bitart (Lortab 5/325) 1 tab PRN Q4HRS PRN PO MILD PAIN 1-3; Start 09/04/20 at 15:45 Acetaminophen/ Hydrocodone Bitart (Lortab 5/325) 1 tab PRN Q4HRS PRN PO MILD PAIN, 2ND CHOICE; Start 09/04/20 at 15:45 Morphine Sulfate (Morphine Sulfate) 2 mg PRN Q1HR PRN IV PAIN; Start 09/04/20 at 15:45 Senna/Docusate Sodium (Senna Plus) 1 tab BID PO ; Start 09/04/20 at 21:00 Lactulose (Lactulose) 20 gm PRN Q12HR PRN PO CONSTIPATION; Start 09/04/20 at 15:45 Methylprednisolone Sodium Succinate (SOLU-Medrol 125MG VIAL) 125 mg Q8HRS IV Last administered on 09/05/20at 06:23; Start 09/04/20 at 22:00 Labetalol HCl (Normodyne Iv Push) 10 mg Q4HRS PRN IVP HYPERTENSION; Start 09/04/20 at 19:15 Influenza Virus Vaccine Quadrival (Fluzone Quad Syringe) 0.5 ml ONCE ONCE VAX IM ; Start 09/05/20 at 09:00; Stop 09/05/20 at 09:01 Albuterol Sulfate (Ventolin Neb Soln) 2.5 mg PRN Q4HRS PRN NEB SHORTNESS OF BREATH; Start 09/05/20 at 07:15 Active Scripts Active Reported Lyza (Norethindrone) 0.35 Mg Tablet 0.35 Mg PO DAILY Xopenex (Levalbuterol HCl) 1.25 Mg/3 Ml Vial.neb 1 Vial NEB PRN Q6HRS PRN 20 Days Diltiazem 24Hr ER (LA) (Diltiazem HCl) 240 Mg Tab.er.24h 1 Tab PO DAILY 30 Days Metoprolol Succinate ( Xl ) (Metoprolol Succinate) 100 Mg Tab.er.24h 1 Tab PO DAILY Vitals/I & O Vital Sign - Last 24 Hours 09/04/20 09/04/20 09/04/20 09/04/20 12:32 13:21 13:53 14:24 Temp 97.5 97.5 Pulse 114 110 106 106 Resp 26 20 20 20 B/P (MAP) 174/98 (123) 137/79 (98) 148/70 (96) 153/69 (97) Pulse Ox 99 100 100 100 O2 Delivery NonRebreather Mask Room Air NonRebreather Mask Room Air O2 Flow Rate 15.0 15.0 09/04/20 09/04/20 09/04/20 09/04/20 14:54 15:24 15:54 15:54 Pulse 104 104 114 114 Resp 20 20 20 20 B/P (MAP) 142/69 (93) 138/74 (95) 146/105 (119) 146/105 (119) Pulse Ox 100 100 92 92 O2 Delivery Nasal Cannula Nasal Cannula Room Air Nasal Cannula O2 Flow Rate 4.0 4.0 4.0 09/04/20 09/04/20 09/04/20 09/04/20 16:24 17:24 18:24 19:24 Pulse 120 122 118 116 Resp 20 20 20 B/P (MAP) 186/78 (114) 137/62 (87) 129/79 (96) 135/72 (93) Pulse Ox 96 92 94 95 O2 Delivery Nasal Cannula Nasal Cannula Nasal Cannula Nasal Cannula O2 Flow Rate 4.0 5.0 5.0 5.0 09/04/20 09/04/20 09/04/20 09/04/20 20:24 21:40 21:40 22:00 Temp 100.0 100.0 Pulse 122 115 114 Resp 20 30 36 B/P (MAP) 136/81 (99) 107/80 (89) 108/68 (81) Pulse Ox 94 85 100 O2 Delivery Nasal Cannula Non-Rebreather Nasal Cannula NonRebreather Mask O2 Flow Rate 5.0 15.0 4.0 15.0 09/04/20 09/05/20 09/05/20 09/05/20 23:00 00:00 00:00 01:00 Temp 99.5 99.5 Pulse 109 104 105 Resp 29 31 32 B/P (MAP) 109/71 (84) 133/71 (91) 114/79 (91) Pulse Ox 99 100 100 O2 Delivery NonRebreather Mask Non-Rebreather NonRebreather Mask NonRebreather Mask O2 Flow Rate 15.0 15.0 15.0 15.0 09/05/20 09/05/20 09/05/20 09/05/20 02:00 03:00 04:00 04:00 Temp 99.4 99.4 Pulse 104 105 100 Resp 25 34 24 B/P (MAP) 96/74 (81) 108/70 (83) 101/69 (80) Pulse Ox 100 100 100 O2 Delivery NonRebreather Mask NonRebreather Mask Non-Rebreather NonRebreather Mask O2 Flow Rate 15.0 15.0 15.0 15.0 09/05/20 09/05/20 05:00 06:00 Pulse 111 118 Resp 26 28 B/P (MAP) 112/73 (86) 110/74 (86) Pulse Ox 100 100 O2 Delivery NonRebreather Mask NonRebreather Mask O2 Flow Rate 15.0 15.0 Intake and Output 09/04/20 09/04/20 09/05/20 15:00 23:00 07:00 Intake Total 50 ml 758.4 ml Output Total 100 ml 100 ml Balance 50 ml -100 ml 658.4 ml Justicifation of Admission Dx: Justifications for Admission: Justification of Admission Dx: Yes Respiratory Failure: Severe Resp Distress BRUCE SOLOMON MD Sep 05, 2020 08:57
[2020-09-05] MEDS ORDERED: PIP/TAZO PER PHARMACY MC PRN (09:00)
[2020-09-05] MEDS ORDERED: VANCOMYCIN PER PHARMACY MC PRN (09:00)
[2020-09-05] MEDS ORDERED: FLU VACC QS 2020-21(6MOS+)/PF 0.5 ML SYRINGE. VAX IM ONE (09:00)
--- NOTE | 2020-09-05 09:15 | NUR ---
Pharmacy Vancomycin Dosing Note S:Consulted to monitor and dose vancomycin started 09/04/20. O:NOELLE OBREGON is a 45 year old F with HCAP . Height: 5 feet, 5 inches Weight: 95.0 kg [place] Body Weight: 57.00 Adjusted Body Weight: 72.20 Dosing Weight: Actual Other Antibiotics: ZOSYN LABS: Last BUN: Last Creatinine: 1.5 Creatinine Clearance: 53 mL/min Last WBC: 28.2 Last Procalcitonin: 1.3 Tmax (past 24 hours): 100 Microbiology: I/O: 800/200 Drug Levels: Last level: on at Last dose given 09/04/20 at 1700 Vancomycin Dosing: Loading Dose: 2000 mg x1 Dosing Weight: Actual Target Trough: 15-20 A: Based on: WEIGHT AND RENAL FUNCTION, 2GM VANCOMYCIN GAVE YESTERDAY AT 1700 P: 1. Begin Vancomycin 1500 mg IV q24h TODAY AT 1700 2. Follow up Trough level on 09/07/20 at 1630 3. Pharmacy will continue to monitor, follow and adjust therapy as needed. SEDRICK FLOWER RPH, 09/05/20 [id number]
[2020-09-05] MEDS: PIPERACILLIN/TAZOBACTAM 3.375 GM in IV NORMAL SALINE 50ML 50 ML IV SCH ×4 (11:19→23:55)
--- NOTE | 2020-09-05 12:58 | PDOC2 ---
CONSULT Date of Consult Date of Consult DATE: 09/05/20 TIME: 12:53 Reason for Consult Reason for Consult: Elevated troponin Referring Physician Referring Physician: Dr. Phillips Identification/Chief Complaint Chief Complaint Shortness of breath History of Present Illness Reason for Visit: The patient is a 45-year-old female who was admitted last evening from the emergency room due to increasing shortness of breath and decreasing mental status. She had been admitted approximately 1 week previously and treated with antibiotics and steroids. She has a history of sarcoidosis and chronic respiratory failure. Apparently the patient did not take her medications. After admission she was placed on nonrebreather that significantly improved her status. EKG shows no acute ischemic changes and a sinus tachycardia. Troponins initially were minimally elevated 0.157 and this morning have decreased to 0.129. The patient is more comfortable. Past Medical History Cardiovascular: HTN Pulmonary: Other (Sarcoidosis) Past Surgical History Past Surgical History: No pertinent history Family History Family History: No Significant Social History No ALCOHOL: none Drugs: None Current Problem List Problem List Problems Medical Problems: (1) APRIL (acute kidney injury) Status: Acute (2) Lactic acidemia Status: Acute (3) NSTEMI (non-ST elevated myocardial infarction) Status: Acute (4) Sarcoidosis Status: Acute (5) Transaminitis Status: Acute Current Medications Current Medications Current Medications Rocuronium Mcdonough (Zemuron) 100 mg 1X ONCE IV ; Start 09/04/20 at 12:45; Stop 09/04/20 at 12:50; Status DC Etomidate (Amidate) 20 mg 1X ONCE IV ; Start 09/04/20 at 12:45; Stop 09/04/20 at 12:50; Status DC Fentanyl Citrate 30 ml @ 0 mls/hr CONT PRN IV SEE PROTOCOL; Start 09/04/20 at 12:45; Stop 09/04/20 at 12:50; Status DC Propofol 100 ml @ 0 mls/hr CONT PRN IV SEE PROTOCOL; Start 09/04/20 at 12:45; Stop 09/04/20 at 12:50; Status DC Fentanyl Citrate (Fentanyl 2ml Vial) 25 mcg PRN Q1HR PRN IV SEE COMMENTS; Start 09/04/20 at 12:45; Stop 09/04/20 at 12:50; Status DC Fentanyl Citrate (Fentanyl 2ml Vial) 50 mcg PRN Q1HR PRN IV SEE COMMENTS; Start 09/04/20 at 12:45; Stop 09/04/20 at 12:50; Status DC Chlorhexidine Gluconate (Peridex) 15 ml BID MM ; Start 09/04/20 at 21:00; Stop 09/04/20 at 12:50; Status DC Morphine Sulfate (Morphine Sulfate) 2 mg PRN Q1HR PRN IV SEE COMMENTS.; Start 09/04/20 at 12:45; Stop 09/04/20 at 12:50; Status DC Morphine Sulfate (Morphine Sulfate) 4 mg PRN Q1HR PRN IV SEE COMMENTS.; Start 09/04/20 at 12:45; Stop 09/04/20 at 12:50; Status DC Piperacillin Sod/ Tazobactam Sod 3.375 gm/Sodium Chloride 50 ml @ 100 mls/hr 1X ONCE IV Last administered on 09/04/20at 13:19; Start 09/04/20 at 13:00; Stop 09/04/20 at 13:29; Status DC Vancomycin HCl 2 gm/Sodium Chloride 500 ml @ 250 mls/hr 1X ONCE IV Last administered on 09/04/20at 16:29; Start 09/04/20 at 13:00; Stop 09/04/20 at 14:59; Status DC Methylprednisolone Sodium Succinate (SOLU-Medrol 125MG VIAL) 125 mg 1X ONCE IV Last administered on 09/04/20at 13:20; Start 09/04/20 at 13:15; Stop 09/04/20 at 13:16; Status DC Furosemide (Lasix) 40 mg 1X ONCE IVP Last administered on 09/04/20at 15:58; Start 09/04/20 at 15:00; Stop 09/04/20 at 15:01; Status DC Acetaminophen (Tylenol) 650 mg PRN Q6HRS PRN PO Headaches, Temp > 101.5'; Start 09/04/20 at 15:45 Lorazepam (Ativan Inj) 0.5 mg PRN Q6HRS PRN IVP ANXIETY / AGITATION Last administered on 09/04/20at 16:26; Start 09/04/20 at 15:45 Ondansetron HCl (Zofran) 4 mg PRN Q6HRS PRN IVP NAUSEA/VOMITING; Start 09/04/20 at 15:45 Calcium Carbonate/ Glycine (Tums) 500 mg PRN Q3HRS PRN PO HEARTBURN / GAS; Start 09/04/20 at 15:45 Famotidine (Pepcid) 20 mg BID PO Last administered on 09/05/20at 08:45; Start 09/04/20 at 21:00 Zolpidem Tartrate (Ambien) 5 mg PRN QHS PRN PO INSOMNIA, MAY REPEAT IN 1HR; Start 09/04/20 at 15:45 Info (Icu Electrolyte Protocol) 1 ea DAILY MC Last administered on 09/05/20at 08:46; Start 09/05/20 at 09:00 Enoxaparin Sodium (Lovenox 40mg Syringe) 40 mg Q24H SQ Last administered on 09/04/20at 22:33; Start 09/04/20 at 21:00 Sodium Chloride (Normal Saline Flush) 3 ml QSHIFT PRN IV AFTER MEDS AND BLOOD DRAWS; Start 09/04/20 at 15:45 Sodium Chloride 1,000 ml @ 100 mls/hr Q10H IV Last administered on 09/05/20at 12:08; Start 09/04/20 at 15:37 Acetaminophen/ Hydrocodone Bitart (Lortab 5/325) 1 tab PRN Q4HRS PRN PO MILD PAIN 1-3; Start 09/04/20 at 15:45 Acetaminophen/ Hydrocodone Bitart (Lortab 5/325) 1 tab PRN Q4HRS PRN PO MILD PAIN, 2ND CHOICE; Start 09/04/20 at 15:45 Morphine Sulfate (Morphine Sulfate) 2 mg PRN Q1HR PRN IV PAIN; Start 09/04/20 at 15:45 Senna/Docusate Sodium (Senna Plus) 1 tab BID PO ; Start 09/04/20 at 21:00 Lactulose (Lactulose) 20 gm PRN Q12HR PRN PO CONSTIPATION; Start 09/04/20 at 15:45 Methylprednisolone Sodium Succinate (SOLU-Medrol 125MG VIAL) 125 mg Q8HRS IV Last administered on 09/05/20at 06:23; Start 09/04/20 at 22:00 Labetalol HCl (Normodyne Iv Push) 10 mg Q4HRS PRN IVP HYPERTENSION; Start 09/04/20 at 19:15 Influenza Virus Vaccine Quadrival (Fluzone Quad Syringe) 0.5 ml ONCE ONCE VAX IM ; Start 09/05/20 at 09:00; Stop 09/05/20 at 09:01; Status DC Albuterol Sulfate (Ventolin Neb Soln) 2.5 mg PRN Q4HRS PRN NEB SHORTNESS OF BREATH; Start 09/05/20 at 07:15 Vancomycin HCl (Vanco Per Pharmacy) 1 each PRN DAILY PRN MC SEE COMMENTS Last administered on 09/05/20at 09:11; Start 09/05/20 at 09:00 Piperacillin Sod/ Tazobactam Sod (Zosyn Per Pharmacy) 1 each PRN DAILY PRN MC SEE COMMENTS; Start 09/05/20 at 09:00 Piperacillin Sod/ Tazobactam Sod 3.375 gm/Sodium Chloride 50 ml @ 100 mls/hr Q6HRS IV Last administered on 09/05/20at 11:19; Start 09/05/20 at 09:00 Vancomycin HCl 1.5 gm/Sodium Chloride 500 ml @ 250 mls/hr Q24H IV ; Start 09/05/20 at 17:00 Vancomycin HCl (Vancomycin Trough Level) 1 each 1X ONCE MC ; Start 09/07/20 at 16:30; Stop 09/07/20 at 16:31 Active Scripts Active Reported Lyza (Norethindrone) 0.35 Mg Tablet 0.35 Mg PO DAILY Xopenex (Levalbuterol HCl) 1.25 Mg/3 Ml Vial.neb 1 Vial NEB PRN Q6HRS PRN 20 Days Diltiazem 24Hr ER (LA) (Diltiazem HCl) 240 Mg Tab.er.24h 1 Tab PO DAILY 30 Days Metoprolol Succinate ( Xl ) (Metoprolol Succinate) 100 Mg Tab.er.24h 1 Tab PO DAILY Allergies Allergies: Coded Allergies: Sulfa (Sulfonamide Antibiotics) (Verified Allergy, Intermediate, 08/29/20) peanut (Verified Allergy, Intermediate, 08/29/20) ROS General: YES: Fatigue Respiratory: YES: Shortness of breath, SOB with excertion Physical Exam General: mild distress Lungs: Other (Decreased breath sounds) Heart: Other (Rate of 100) Abdomen: Normal bowel sounds Vitals VITALS Vital Signs Date Time Temp Pulse Resp B/P (MAP) Pulse Ox O2 Delivery O2 Flow Rate FiO2 09/05/20 12:00 98.3 110 36 99/63 (75) 95 Nasal Cannula 10.0 98.3 Labs Labs Laboratory Tests Test 09/04/20 12:47 09/04/20 13:40 09/05/20 05:00 O2 Saturation 97 % (92-99) Arterial Blood pH 7.47 (7.35-7.45) Arterial Blood pCO2 at Patient Temp 38 mmHg (35-46) Arterial Blood pO2 at Patient Temp 108 mmHg (75-108) Arterial Blood HCO3 27 mmol/L (21-28) Arterial Blood Base Excess 4 mmol/L (-3-3) FiO2 100 White Blood Count 29.3 x10^3/uL (4.0-11.0) 28.2 x10^3/uL (4.0-11.0) Red Blood Count 3.36 x10^6/uL (3.50-5.40) 3.18 x10^6/uL (3.50-5.40) Hemoglobin 10.5 g/dL (12.0-15.5) 10.0 g/dL (12.0-15.5) Hematocrit 31.5 % (36.0-47.0) 30.0 % (36.0-47.0) Mean Corpuscular Volume 94 fL (79-100) 94 fL (79-100) Mean Corpuscular Hemoglobin 31 pg (25-35) 31 pg (25-35) Mean Corpuscular Hemoglobin Concent 33 g/dL (31-37) 33 g/dL (31-37) Red Cell Distribution Width 21.0 % (11.5-14.5) 21.1 % (11.5-14.5) Platelet Count 228 x10^3/uL (140-400) 173 x10^3/uL (140-400) Neutrophils (%) (Auto) 86 % (31-73) 89 % (31-73) Lymphocytes (%) (Auto) 3 % (24-48) 1 % (24-48) Monocytes (%) (Auto) 10 % (0-9) 5 % (0-9) Eosinophils (%) (Auto) 1 % (0-3) 4 % (0-3) Basophils (%) (Auto) 0 % (0-3) 0 % (0-3) Neutrophils # (Auto) 25.1 x10^3/uL (1.8-7.7) 25.2 x10^3/uL (1.8-7.7) Lymphocytes # (Auto) 1.0 x10^3/uL (1.0-4.8) 0.4 x10^3/uL (1.0-4.8) Monocytes # (Auto) 2.9 x10^3/uL (0.0-1.1) 1.5 x10^3/uL (0.0-1.1) Eosinophils # (Auto) 0.3 x10^3/uL (0.0-0.7) 1.1 x10^3/uL (0.0-0.7) Basophils # (Auto) 0.1 x10^3/uL (0.0-0.2) 0.0 x10^3/uL (0.0-0.2) Segmented Neutrophils % 83 % (35-66) Band Neutrophils % 1 % (0-9) Lymphocytes % 7 % (24-48) Monocytes % 7 % (0-10) Metamyelocytes % 1 % (0-0) Myelocytes % 1 % (0-0) Nucleated Red Blood Cells 52 Platelet Estimate Adequate (ADEQUATE) Polychromasia Occasional Hypochromasia Slight Poikilocytosis Slight Anisocytosis Mod Target Cells Mod Sodium Level 139 mmol/L (136-145) 141 mmol/L (136-145) Potassium Level 5.7 mmol/L (3.5-5.1) 5.1 mmol/L (3.5-5.1) Chloride Level 101 mmol/L (98-107) 103 mmol/L (98-107) Carbon Dioxide Level 29 mmol/L (21-32) 30 mmol/L (21-32) Anion Gap 9 (6-14) 8 (6-14) Blood Urea Nitrogen 41 mg/dL (7-20) 47 mg/dL (7-20) Creatinine 1.4 mg/dL (0.6-1.0) 1.5 mg/dL (0.6-1.0) Estimated GFR (Cockcroft-Gault) 49.0 45.2 BUN/Creatinine Ratio 29 (6-20) Glucose Level 137 mg/dL (70-99) 174 mg/dL (70-99) Lactic Acid Level 3.2 mmol/L (0.4-2.0) 1.2 mmol/L (0.4-2.0) Calcium Level 8.9 mg/dL (8.5-10.1) 8.5 mg/dL (8.5-10.1) Total Bilirubin 3.9 mg/dL (0.2-1.0) Aspartate Amino Transf (AST/SGOT) 103 U/L (15-37) Alanine Aminotransferase (ALT/SGPT) 153 U/L (14-59) Alkaline Phosphatase 377 U/L (46-116) Creatine Kinase 67 U/L (26-192) Troponin I Quantitative 0.157 ng/mL (0.000-0.055) 0.129 ng/mL (0.000-0.055) C-Reactive Protein, Quantitative 256.1 mg/L (0-3.3) GP-[id number]-[id number]-Type Natriuretic Peptide > 22062 pg/mL (0-124) Total Protein 7.5 g/dL (6.4-8.2) Albumin 3.3 g/dL (3.4-5.0) Albumin/Globulin Ratio 0.8 (1.0-1.7) Procalcitonin 1.30 ng/mL (0.00-0.10) Laboratory Tests Test 09/04/20 13:40 09/05/20 05:00 White Blood Count 29.3 x10^3/uL (4.0-11.0) 28.2 x10^3/uL (4.0-11.0) Red Blood Count 3.36 x10^6/uL (3.50-5.40) 3.18 x10^6/uL (3.50-5.40) Hemoglobin 10.5 g/dL (12.0-15.5) 10.0 g/dL (12.0-15.5) Hematocrit 31.5 % (36.0-47.0) 30.0 % (36.0-47.0) Mean Corpuscular Volume 94 fL (79-100) 94 fL (79-100) Mean Corpuscular Hemoglobin 31 pg (25-35) 31 pg (25-35) Mean Corpuscular Hemoglobin Concent 33 g/dL (31-37) 33 g/dL (31-37) Red Cell Distribution Width 21.0 % (11.5-14.5) 21.1 % (11.5-14.5) Platelet Count 228 x10^3/uL (140-400) 173 x10^3/uL (140-400) Neutrophils (%) (Auto) 86 % (31-73) 89 % (31-73) Lymphocytes (%) (Auto) 3 % (24-48) 1 % (24-48) Monocytes (%) (Auto) 10 % (0-9) 5 % (0-9) Eosinophils (%) (Auto) 1 % (0-3) 4 % (0-3) Basophils (%) (Auto) 0 % (0-3) 0 % (0-3) Neutrophils # (Auto) 25.1 x10^3/uL (1.8-7.7) 25.2 x10^3/uL (1.8-7.7) Lymphocytes # (Auto) 1.0 x10^3/uL (1.0-4.8) 0.4 x10^3/uL (1.0-4.8) Monocytes # (Auto) 2.9 x10^3/uL (0.0-1.1) 1.5 x10^3/uL (0.0-1.1) Eosinophils # (Auto) 0.3 x10^3/uL (0.0-0.7) 1.1 x10^3/uL (0.0-0.7) Basophils # (Auto) 0.1 x10^3/uL (0.0-0.2) 0.0 x10^3/uL (0.0-0.2) Segmented Neutrophils % 83 % (35-66) Band Neutrophils % 1 % (0-9) Lymphocytes % 7 % (24-48) Monocytes % 7 % (0-10) Metamyelocytes % 1 % (0-0) Myelocytes % 1 % (0-0) Nucleated Red Blood Cells 52 Platelet Estimate Adequate (ADEQUATE) Polychromasia Occasional Hypochromasia Slight Poikilocytosis Slight Anisocytosis Mod Target Cells Mod Sodium Level 139 mmol/L (136-145) 141 mmol/L (136-145) Potassium Level 5.7 mmol/L (3.5-5.1) 5.1 mmol/L (3.5-5.1) Chloride Level 101 mmol/L (98-107) 103 mmol/L (98-107) Carbon Dioxide Level 29 mmol/L (21-32) 30 mmol/L (21-32) Anion Gap 9 (6-14) 8 (6-14) Blood Urea Nitrogen 41 mg/dL (7-20) 47 mg/dL (7-20) Creatinine 1.4 mg/dL (0.6-1.0) 1.5 mg/dL (0.6-1.0) Estimated GFR (Cockcroft-Gault) 49.0 45.2 BUN/Creatinine Ratio 29 (6-20) Glucose Level 137 mg/dL (70-99) 174 mg/dL (70-99) Lactic Acid Level 3.2 mmol/L (0.4-2.0) 1.2 mmol/L (0.4-2.0) Calcium Level 8.9 mg/dL (8.5-10.1) 8.5 mg/dL (8.5-10.1) Total Bilirubin 3.9 mg/dL (0.2-1.0) Aspartate Amino Transf (AST/SGOT) 103 U/L (15-37) Alanine Aminotransferase (ALT/SGPT) 153 U/L (14-59) Alkaline Phosphatase 377 U/L (46-116) Creatine Kinase 67 U/L (26-192) Troponin I Quantitative 0.157 ng/mL (0.000-0.055) 0.129 ng/mL (0.000-0.055) C-Reactive Protein, Quantitative 256.1 mg/L (0-3.3) SU-Vuo-A-Type Natriuretic Peptide > 06839 pg/mL (0-124) Total Protein 7.5 g/dL (6.4-8.2) Albumin 3.3 g/dL (3.4-5.0) Albumin/Globulin Ratio 0.8 (1.0-1.7) Procalcitonin 1.30 ng/mL (0.00-0.10) Images Images Chest x-ray with interstitial changes. Assessment/Plan Assessment/Plan 1. Respiratory failure. Patient improved on present medications. History of sarcoidosis as noted above with previous treatment with steroids and antibiotics. Chest x-ray shows a persistent infiltrate. Patient is now on steroids and antibiotics. Followed by the pulmonary service. 2. Sarcoidosis. As above. 3. Minimally elevated troponin at 0.157 and 0.129. No acute ischemic EKG changes. Most consistent with demand ischemia. We will continue treatment as above. 4. History of hypertension. Blood pressure controlled. Will monitor. Thank you for allowing us to participate in the care of your patient. BRADEN DOWELL MD Sep 05, 2020 12:58
[2020-09-05] MEDS: VANCOMYCIN 1.5 GM in IV NORMAL SALINE 500ML BAG 500 ML IV SCH (16:39)
[2020-09-05] MEDS: ENOXAPARIN 40 MG/0.4 ML SYRINGE. SQ SCH (21:41)
[2020-09-06] VITALS (16 sets, daily range): BP systolic 86–127; BP diastolic 23–79
[2020-09-06] MEDS: methylPREDNISolone SOD SUCC PF 125 MG/2 ML VIAL. IV SCH ×3 (05:22→21:29)
[2020-09-06] MEDS: PIPERACILLIN/TAZOBACTAM 3.375 GM in IV NORMAL SALINE 50ML 50 ML IV SCH ×3 (05:23→17:24)
[2020-09-06] MEDS: SENNOSIDES/DOCUSATE 8.6/50MG TABLET. PO SCH ×2 (08:16→21:29)
[2020-09-06] MEDS: FAMOTIDINE 20 MG TABLET. PO SCH ×2 (08:16→21:28)
[2020-09-06] MEDS: IV NORMAL SALINE 1000ML BAG 1,000 ML IV SCH ×2 (08:26→17:32)
[2020-09-06] MEDS: ELECTROLYTE (ICU) PROTOCOL. MC SCH (08:33)
[2020-09-06] MEDS ORDERED: ALBUTEROL SULFATE 2.5 MG/3 ML NEBU. NEB PRN (08:45)
[2020-09-06] MEDS ORDERED: NORETHINDRONE 0.35 MG PO SCH (09:00)
[2020-09-06] MEDS ORDERED: METOPROLOL SUCC 24HR ER 100 MG TAB.ER.24H. PO SCH (09:00)
[2020-09-06 10:28] LABS: BASO # 0.1 x10^3/uL (0.0-0.2); BASO % 0 % (0-3); EOS # 0.1 x10^3/uL (0.0-0.7); EOS % 0 % (0-3); HEMOGLOBIN 9.1 g/dL (12.0-15.5); LYMPH # 0.3 x10^3/uL (1.0-4.8); LYMPH % 1 % (24-48); MEAN CORPUSCULAR HEMOGLOBIN 31 pg (25-35); MEAN CORPUSCULAR HGB CONC 34 g/dL (31-37); MEAN CORPUSCULAR VOLUME 94 fL (79-100); MONO # 2.6 x10^3/uL (0.0-1.1); MONO % 11 % (0-9); NEUT # 21.5 x10^3/uL (1.8-7.7); NEUT % 88 % (31-73); PLATELET COUNT 109 x10^3/uL (140-400); RED BLOOD COUNT 2.88 x10^6/uL (3.50-5.40); RED CELL DISTRIBUTION WIDTH 21.4 % (11.5-14.5); WHITE BLOOD COUNT 24.6 x10^3/uL (4.0-11.0)
--- NOTE | 2020-09-06 10:29 | PDOC ---
PROGRESS NOTES Date of Service: DATE: 09/06/20 TIME: 10:28 Chief Complaint Chief Complaint Assessment/Plan Sirs criteria present on admission most likely secondary to lung pathology Healthcare associated pneumonia? Acute sarcoidosis flareup Steroid induced myopathy pretty much ruled out, patient moving extremities today better than yesterday, CK level noted. Non-STEMI type II secondary to suspected infection, demeand ischemia, patient with no angina type of symptoms. Essential hypertension Acute renal failure most likely secondary to vasomotor nephropathy present on admission Elevated lactic acid secondary to most likely infectious process Person under investigation for COVID-19 Chronic steroid use Osteoporosis as per the patient Transaminitis which could be reactive versus fatty infiltration Hyperglycemia most likely secondary to steroid use Mild hyperkalemia with no clinical significance and no EKG changes Plan Procalcitonin elevated, will continue Zosyn and Vancomycin for HCAP continue with steroid therapy Follow results from coronavirus testing Resume home medications Supplemental oxygen as needed IV fluids with normal saline DVT prophylaxis with Lovenox Further recommendations based on clinical History of Present Illness History of Present Illness History of Present Illness 45yo F w/ PMHx sarcoidosis, HTN who presents with chief complaint of progressive shortness of breath over the past several days. She notes that she is more short of breath than usual with exertion. She denies any shortness of breath at rest. Denies chest pain. Denies syncope. States this feels similar to previous sarcoidosis flares. She does take prednisone daily. She does note that she recently traveled from [place] to visit family in the area, she drove herself. No history of VTE. Denies any swelling to the legs. Denies any known exposure to coronavirus. Denies fevers.Denies any abdominal pain. Denies syncope. Denies any cardiac history or invasive cardiac disease. No nausea no vomiting. Denies diaphoresis. No other complaints. Hypoxic to 73% on room air in ED. She does not wear home O2. CXR with diffuse bilateral interstitial opacities. CTPA negative for PE, did show diffuse groundglass opacities scattered throughout both lungs. During her last hospital stay she was seen in consultation by pulmonology and she was placed on high-dose IV steroids. This was transitioned to an oral taper which apparently has not been taken by the patient. The patient denies any sick contacts between her date of discharge from Monday until today. She denies any fever no chills the patient is exhibiting good inspiratory effort during my interview. Nevertheless her lower extremities seem to be quite weak. According to her boyfriend she seems to have declined during her hospital stay and by the time she was discharged they relate to me that she could barely walk. This was also the reason why she was brought into the emergency department. She has been pretty much bedbound for the last 2 days and she is unable to walk without assistance the patient denied any slurred speech no hemiparesis no hemiplegia no paresthesias reported. She denies dysphagia odynophagia no chest pain palpitations or shortness of breath. She denies nausea vomiting diarrhea, no urinary symptoms. She has had lower extremity edema for a long time and this seems to be related to her steroid therapy which is chronic in nature. All of her concerns were addressed to the best of my abilities, plan of care explained detail, reassurance provided 09/05: No acute events reported overnight, case discussed with nursing staff patient in no acute distress no complaints during my visit 09/06: Patient continues to do much better compared to yesterday. Seems like the steroids in combination with antibiotics are starting positive effect on the patient. No acute events reported overnight we are waiting for coronavirus testing if negative patient may be moved to the regular floor Vitals Vitals Vital Signs Date Time Temp Pulse Resp B/P (MAP) Pulse Ox O2 Delivery O2 Flow Rate FiO2 09/06/20 08:47 103 112/73 09/06/20 08:32 18 Nasal Cannula 8.0 09/06/20 06:20 100 09/06/20 04:00 97.4 97.4 Physical Exam Physical Exam Gen.: well-developed well-nourished in no apparent distress Head: Normal shape atraumatic Eyes: Pupils equal reactive to light and accommodation, normal conjunctivae and lids Ears: Normal shape Nose: Normal shape no trauma Mouth: No exudates of the back of throat no thrush no lesions Neck: Supple no JVD no carotid bruit or lymphadenopathy no thyromegaly Chest: Lungs clear to auscultation with good inspiratory effort no crackles rales or rhonchi Cardiovascular: S1-S2 regular rhythm no murmurs gallops or rubs Abdomen: Bowel sounds present soft nontender no hepatosplenomegaly appreciated sign Extremities: No clubbing no cyanosis no edema peripheral pulses palpated bilaterally Neurological: Alert awake oriented in person time place and situation, cranial nerves II through XII intact, no motor or sensory deficits appreciated Psych: Appropriate mood, cooperative General: mild distress Heart: Other (Rate of 100) Abdomen: Normal bowel sounds Assessment and Plan Assessmemt and Plan Problems Medical Problems: (1) APRIL (acute kidney injury) Status: Acute (2) Lactic acidemia Status: Acute (3) NSTEMI (non-ST elevated myocardial infarction) Status: Acute (4) Sarcoidosis Status: Acute (5) Transaminitis Status: Acute Comment Review of Relevant I have reviewed the following items kita (where applicable) has been applied. Labs Laboratory Tests Test 09/04/20 12:47 09/04/20 13:40 09/05/20 05:00 O2 Saturation 97 % (92-99) Arterial Blood pH 7.47 (7.35-7.45) Arterial Blood pCO2 at Patient Temp 38 mmHg (35-46) Arterial Blood pO2 at Patient Temp 108 mmHg (75-108) Arterial Blood HCO3 27 mmol/L (21-28) Arterial Blood Base Excess 4 mmol/L (-3-3) FiO2 100 White Blood Count 29.3 x10^3/uL (4.0-11.0) 28.2 x10^3/uL (4.0-11.0) Red Blood Count 3.36 x10^6/uL (3.50-5.40) 3.18 x10^6/uL (3.50-5.40) Hemoglobin 10.5 g/dL (12.0-15.5) 10.0 g/dL (12.0-15.5) Hematocrit 31.5 % (36.0-47.0) 30.0 % (36.0-47.0) Mean Corpuscular Volume 94 fL (79-100) 94 fL (79-100) Mean Corpuscular Hemoglobin 31 pg (25-35) 31 pg (25-35) Mean Corpuscular Hemoglobin Concent 33 g/dL (31-37) 33 g/dL (31-37) Red Cell Distribution Width 21.0 % (11.5-14.5) 21.1 % (11.5-14.5) Platelet Count 228 x10^3/uL (140-400) 173 x10^3/uL (140-400) Neutrophils (%) (Auto) 86 % (31-73) 89 % (31-73) Lymphocytes (%) (Auto) 3 % (24-48) 1 % (24-48) Monocytes (%) (Auto) 10 % (0-9) 5 % (0-9) Eosinophils (%) (Auto) 1 % (0-3) 4 % (0-3) Basophils (%) (Auto) 0 % (0-3) 0 % (0-3) Neutrophils # (Auto) 25.1 x10^3/uL (1.8-7.7) 25.2 x10^3/uL (1.8-7.7) Lymphocytes # (Auto) 1.0 x10^3/uL (1.0-4.8) 0.4 x10^3/uL (1.0-4.8) Monocytes # (Auto) 2.9 x10^3/uL (0.0-1.1) 1.5 x10^3/uL (0.0-1.1) Eosinophils # (Auto) 0.3 x10^3/uL (0.0-0.7) 1.1 x10^3/uL (0.0-0.7) Basophils # (Auto) 0.1 x10^3/uL (0.0-0.2) 0.0 x10^3/uL (0.0-0.2) Segmented Neutrophils % 83 % (35-66) Band Neutrophils % 1 % (0-9) Lymphocytes % 7 % (24-48) Monocytes % 7 % (0-10) Metamyelocytes % 1 % (0-0) Myelocytes % 1 % (0-0) Nucleated Red Blood Cells 52 Platelet Estimate Adequate (ADEQUATE) Polychromasia Occasional Hypochromasia Slight Poikilocytosis Slight Anisocytosis Mod Target Cells Mod Sodium Level 139 mmol/L (136-145) 141 mmol/L (136-145) Potassium Level 5.7 mmol/L (3.5-5.1) 5.1 mmol/L (3.5-5.1) Chloride Level 101 mmol/L (98-107) 103 mmol/L (98-107) Carbon Dioxide Level 29 mmol/L (21-32) 30 mmol/L (21-32) Anion Gap 9 (6-14) 8 (6-14) Blood Urea Nitrogen 41 mg/dL (7-20) 47 mg/dL (7-20) Creatinine 1.4 mg/dL (0.6-1.0) 1.5 mg/dL (0.6-1.0) Estimated GFR (Cockcroft-Gault) 49.0 45.2 BUN/Creatinine Ratio 29 (6-20) Glucose Level 137 mg/dL (70-99) 174 mg/dL (70-99) Lactic Acid Level 3.2 mmol/L (0.4-2.0) 1.2 mmol/L (0.4-2.0) Calcium Level 8.9 mg/dL (8.5-10.1) 8.5 mg/dL (8.5-10.1) Total Bilirubin 3.9 mg/dL (0.2-1.0) Aspartate Amino Transf (AST/SGOT) 103 U/L (15-37) Alanine Aminotransferase (ALT/SGPT) 153 U/L (14-59) Alkaline Phosphatase 377 U/L (46-116) Creatine Kinase 67 U/L (26-192) Troponin I Quantitative 0.157 ng/mL (0.000-0.055) 0.129 ng/mL (0.000-0.055) C-Reactive Protein, Quantitative 256.1 mg/L (0-3.3) DM-Imo-J-Type Natriuretic Peptide > 48751 pg/mL (0-124) Total Protein 7.5 g/dL (6.4-8.2) Albumin 3.3 g/dL (3.4-5.0) Albumin/Globulin Ratio 0.8 (1.0-1.7) Procalcitonin 1.30 ng/mL (0.00-0.10) Microbiology 09/04/20 Blood Culture - Preliminary, Resulted NO GROWTH AFTER 1 DAY Medications Current Medications Rocuronium Ford (Zemuron) 100 mg 1X ONCE IV ; Start 09/04/20 at 12:45; Stop 09/04/20 at 12:50; Status DC Etomidate (Amidate) 20 mg 1X ONCE IV ; Start 09/04/20 at 12:45; Stop 09/04/20 at 12:50; Status DC Fentanyl Citrate 30 ml @ 0 mls/hr CONT PRN IV SEE PROTOCOL; Start 09/04/20 at 12:45; Stop 09/04/20 at 12:50; Status DC Propofol 100 ml @ 0 mls/hr CONT PRN IV SEE PROTOCOL; Start 09/04/20 at 12:45; Stop 09/04/20 at 12:50; Status DC Fentanyl Citrate (Fentanyl 2ml Vial) 25 mcg PRN Q1HR PRN IV SEE COMMENTS; Start 09/04/20 at 12:45; Stop 09/04/20 at 12:50; Status DC Fentanyl Citrate (Fentanyl 2ml Vial) 50 mcg PRN Q1HR PRN IV SEE COMMENTS; Start 09/04/20 at 12:45; Stop 09/04/20 at 12:50; Status DC Chlorhexidine Gluconate (Peridex) 15 ml BID MM ; Start 09/04/20 at 21:00; Stop 09/04/20 at 12:50; Status DC Morphine Sulfate (Morphine Sulfate) 2 mg PRN Q1HR PRN IV SEE COMMENTS.; Start 09/04/20 at 12:45; Stop 09/04/20 at 12:50; Status DC Morphine Sulfate (Morphine Sulfate) 4 mg PRN Q1HR PRN IV SEE COMMENTS.; Start 09/04/20 at 12:45; Stop 09/04/20 at 12:50; Status DC Piperacillin Sod/ Tazobactam Sod 3.375 gm/Sodium Chloride 50 ml @ 100 mls/hr 1X ONCE IV Last administered on 09/04/20at 13:19; Start 09/04/20 at 13:00; Stop 09/04/20 at 13:29; Status DC Vancomycin HCl 2 gm/Sodium Chloride 500 ml @ 250 mls/hr 1X ONCE IV Last administered on 09/04/20at 16:29; Start 09/04/20 at 13:00; Stop 09/04/20 at 14:59; Status DC Methylprednisolone Sodium Succinate (SOLU-Medrol 125MG VIAL) 125 mg 1X ONCE IV Last administered on 09/04/20at 13:20; Start 09/04/20 at 13:15; Stop 09/04/20 at 13:16; Status DC Furosemide (Lasix) 40 mg 1X ONCE IVP Last administered on 09/04/20at 15:58; Start 09/04/20 at 15:00; Stop 09/04/20 at 15:01; Status DC Acetaminophen (Tylenol) 650 mg PRN Q6HRS PRN PO Headaches, Temp > 101.5'; Start 09/04/20 at 15:45 Lorazepam (Ativan Inj) 0.5 mg PRN Q6HRS PRN IVP ANXIETY / AGITATION Last administered on 09/05/20at 16:53; Start 09/04/20 at 15:45 Ondansetron HCl (Zofran) 4 mg PRN Q6HRS PRN IVP NAUSEA/VOMITING; Start 09/04/20 at 15:45 Calcium Carbonate/ Glycine (Tums) 500 mg PRN Q3HRS PRN PO HEARTBURN / GAS; Start 09/04/20 at 15:45 Famotidine (Pepcid) 20 mg BID PO Last administered on 09/06/20at 08:16; Start 09/04/20 at 21:00 Zolpidem Tartrate (Ambien) 5 mg PRN QHS PRN PO INSOMNIA, MAY REPEAT IN 1HR; Start 09/04/20 at 15:45 Info (Icu Electrolyte Protocol) 1 ea DAILY MC Last administered on 09/05/20at 08:46; Start 09/05/20 at 09:00 Enoxaparin Sodium (Lovenox 40mg Syringe) 40 mg Q24H SQ Last administered on 09/05/20at 21:41; Start 09/04/20 at 21:00 Sodium Chloride (Normal Saline Flush) 3 ml QSHIFT PRN IV AFTER MEDS AND BLOOD DRAWS; Start 09/04/20 at 15:45 Sodium Chloride 1,000 ml @ 100 mls/hr Q10H IV Last administered on 09/06/20at 08:26; Start 09/04/20 at 15:37 Acetaminophen/ Hydrocodone Bitart (Lortab 5/325) 1 tab PRN Q4HRS PRN PO MILD PAIN 1-3; Start 09/04/20 at 15:45 Acetaminophen/ Hydrocodone Bitart (Lortab 5/325) 1 tab PRN Q4HRS PRN PO MILD PAIN, 2ND CHOICE; Start 09/04/20 at 15:45; Status Cancel Morphine Sulfate (Morphine Sulfate) 2 mg PRN Q1HR PRN IV PAIN Last administered on 09/06/20at 08:32; Start 09/04/20 at 15:45 Senna/Docusate Sodium (Senna Plus) 1 tab BID PO Last administered on 09/06/20at 08:16; Start 09/04/20 at 21:00 Lactulose (Lactulose) 20 gm PRN Q12HR PRN PO CONSTIPATION; Start 09/04/20 at 15:45 Methylprednisolone Sodium Succinate (SOLU-Medrol 125MG VIAL) 125 mg Q8HRS IV Last administered on 09/06/20at 05:22; Start 09/04/20 at 22:00 Labetalol HCl (Normodyne Iv Push) 10 mg Q4HRS PRN IVP HYPERTENSION; Start 09/04/20 at 19:15 Influenza Virus Vaccine Quadrival (Fluzone Quad Syringe) 0.5 ml ONCE ONCE VAX IM ; Start 09/05/20 at 09:00; Stop 09/05/20 at 09:01; Status DC Albuterol Sulfate (Ventolin Neb Soln) 2.5 mg PRN Q4HRS PRN NEB SHORTNESS OF BREATH; Start 09/05/20 at 07:15; Stop 09/06/20 at 08:40; Status DC Vancomycin HCl (Vanco Per Pharmacy) 1 each PRN DAILY PRN MC SEE COMMENTS Last administered on 09/05/20at 09:11; Start 09/05/20 at 09:00 Piperacillin Sod/ Tazobactam Sod (Zosyn Per Pharmacy) 1 each PRN DAILY PRN MC SEE COMMENTS; Start 09/05/20 at 09:00 Piperacillin Sod/ Tazobactam Sod 3.375 gm/Sodium Chloride 50 ml @ 100 mls/hr Q6HRS IV Last administered on 09/06/20at 05:23; Start 09/05/20 at 09:00 Vancomycin HCl 1.5 gm/Sodium Chloride 500 ml @ 250 mls/hr Q24H IV Last administered on 09/05/20at 16:39; Start 09/05/20 at 17:00 Vancomycin HCl (Vancomycin Trough Level) 1 each 1X ONCE MC ; Start 09/07/20 at 16:30; Stop 09/07/20 at 16:31 Metoprolol Succinate (Toprol Xl) 100 mg DAILY PO ; Start 09/06/20 at 09:00 Diltiazem HCl (Cardizem 24hr Cd) 240 mg DAILY PO Last administered on 08/27 12/16at 08:47; Start 09/06/20 at 09:00 Albuterol Sulfate (Ventolin Neb Soln) 2.5 mg PRN Q6HRS PRN NEB SHORTNESS OF BREATH; Start 09/06/20 at 08:45 Non-Formulary Medication (Norethindrone (Lyza)) 0.35 mg DAILY PO ; Start 09/06/20 at 09:00; Status UNV Active Scripts Active Reported Lyza (Norethindrone) 0.35 Mg Tablet 0.35 Mg PO DAILY Xopenex (Levalbuterol HCl) 1.25 Mg/3 Ml Vial.neb 1 Vial NEB PRN Q6HRS PRN 20 Days Diltiazem 24Hr ER (LA) (Diltiazem HCl) 240 Mg Tab.er.24h 1 Tab PO DAILY 30 Days Metoprolol Succinate ( Xl ) (Metoprolol Succinate) 100 Mg Tab.er.24h 1 Tab PO DAILY Vitals/I & O Vital Sign - Last 24 Hours 09/05/20 09/05/20 09/05/20 09/05/20 11:00 12:00 12:00 12:49 Temp 98.3 98.3 Pulse 113 110 Resp 32 36 B/P (MAP) 120/65 (83) 99/63 (75) Pulse Ox 96 95 95 O2 Delivery NonRebreather Mask Nasal Cannula Nasal Cannula High Flow Nasal Cannula O2 Flow Rate 15.0 10.0 10.0 10.0 09/05/20 09/05/20 09/05/20 09/05/20 13:00 14:00 15:00 16:00 Pulse 114 101 102 Resp 30 38 40 B/P (MAP) 110/71 (84) 107/78 (88) 107/75 (86) Pulse Ox 95 99 100 O2 Delivery Nasal Cannula Nasal Cannula Nasal Cannula Nasal Cannula O2 Flow Rate 10.0 10.0 10.0 10.0 09/05/20 09/05/20 09/05/20 09/05/20 16:00 17:00 18:00 19:30 Temp 98.4 98.4 98.4 98.4 Pulse 104 105 105 103 Resp 29 32 40 26 B/P (MAP) 116/72 (87) 111/76 (88) 105/74 (84) 112/79 (90) Pulse Ox 98 96 99 98 O2 Delivery Nasal Cannula Nasal Cannula Nasal Cannula Nasal Cannula O2 Flow Rate 10.0 8.0 8.0 8.0 09/05/20 09/05/20 09/05/20 09/05/20 19:45 20:00 21:00 22:00 Pulse 110 108 106 Resp 28 26 28 B/P (MAP) 121/75 (90) 111/67 (82) 99/71 (80) Pulse Ox 93 96 97 O2 Delivery Nasal Cannula Nasal Cannula Nasal Cannula Nasal Cannula O2 Flow Rate 8.0 8.0 8.0 8.0 09/05/20 09/05/20 09/06/20 09/06/20 23:16 23:59 00:01 01:00 Temp 97.6 97.6 Pulse 100 100 94 Resp 30 30 20 B/P (MAP) 99/74 (82) 108/69 (82) 127/74 (91) Pulse Ox 100 99 100 O2 Delivery Nasal Cannula Nasal Cannula Nasal Cannula Nasal Cannula O2 Flow Rate 8.0 8.0 8.0 8.0 09/06/20 09/06/20 09/06/20 09/06/20 02:03 03:08 04:00 04:11 Temp 97.4 97.4 Pulse 96 93 95 Resp 24 20 27 B/P (MAP) 111/76 (88) 102/79 (87) 112/76 (88) Pulse Ox 100 100 100 O2 Delivery Nasal Cannula Nasal Cannula Nasal Cannula Nasal Cannula O2 Flow Rate 8.0 8.0 8.0 8.0 09/06/20 09/06/20 09/06/20 09/06/20 05:00 06:20 08:32 08:47 Pulse 96 93 103 Resp 20 22 18 B/P (MAP) 117/71 (86) 113/73 (86) 112/73 Pulse Ox 100 100 O2 Delivery Nasal Cannula Nasal Cannula Nasal Cannula O2 Flow Rate 8.0 8.0 8.0 Intake and Output 0 09/05/20 09/05/20 09/06/20 15:00 23:00 07:00 Intake Total 100 ml 400 ml 50 ml Output Total 400 ml 200 ml Balance -300 ml 200 ml 50 ml Justicifation of Admission Dx: Justifications for Admission: Justification of Admission Dx: Yes Respiratory Failure: Severe Resp Distress BRUCE SOLOMON MD Sep 06, 2020 10:29
[2020-09-06 10:36] LABS: CALCIUM 8.4 mg/dL (8.5-10.1); CREATININE 1.6 mg/dL (0.6-1.0)
[2020-09-06] MEDS: HYDROcodone/APAP 5/325MG 1 TAB TABLET PO PRN ×3 (11:06→21:29)
--- NOTE | 2020-09-06 11:34 | PDOC ---
PULMONARY PROGRESS NOTES DATE: 09/06/20 TIME: 11:31 Subjective Patient remains on 7 L nasal cannula Afebrile overnight No other concerns from nursing at this time Vitals Vital Signs Date Time Temp Pulse Resp B/P (MAP) Pulse Ox O2 Delivery O2 Flow Rate FiO2 09/06/20 11:06 18 100 Nasal Cannula 7.0 09/06/20 08:47 103 112/73 09/06/20 04:00 97.4 97.4 Comments Patient seen during , visual exam performed Drowsy Nasal cannula Regular rate and rhythm No obvious rash or edema General: Alert, No acute distress Labs Laboratory Tests Test 09/04/20 12:47 09/04/20 13:40 09/05/20 05:00 09/06/20 09:50 O2 Saturation 97 % (92-99) Arterial Blood pH 7.47 (7.35-7.45) Arterial Blood pCO2 at Patient Temp 38 mmHg (35-46) Arterial Blood pO2 at Patient Temp 108 mmHg (75-108) Arterial Blood HCO3 27 mmol/L (21-28) Arterial Blood Base Excess 4 mmol/L (-3-3) FiO2 100 White Blood Count 29.3 x10^3/uL (4.0-11.0) 28.2 x10^3/uL (4.0-11.0) 24.6 x10^3/uL (4.0-11.0) Red Blood Count 3.36 x10^6/uL (3.50-5.40) 3.18 x10^6/uL (3.50-5.40) 2.88 x10^6/uL (3.50-5.40) Hemoglobin 10.5 g/dL (12.0-15.5) 10.0 g/dL (12.0-15.5) 9.1 g/dL (12.0-15.5) Hematocrit 31.5 % (36.0-47.0) 30.0 % (36.0-47.0) 27.0 % (36.0-47.0) Mean Corpuscular Volume 94 fL (79-100) 94 fL (79-100) 94 fL (79-100) Mean Corpuscular Hemoglobin 31 pg (25-35) 31 pg (25-35) 31 pg (25-35) Mean Corpuscular Hemoglobin Concent 33 g/dL (31-37) 33 g/dL (31-37) 34 g/dL (31-37) Red Cell Distribution Width 21.0 % (11.5-14.5) 21.1 % (11.5-14.5) 21.4 % (11.5-14.5) Platelet Count 228 x10^3/uL (140-400) 173 x10^3/uL (140-400) 109 x10^3/uL (140-400) Neutrophils (%) (Auto) 86 % (31-73) 89 % (31-73) 88 % (31-73) Lymphocytes (%) (Auto) 3 % (24-48) 1 % (24-48) 1 % (24-48) Monocytes (%) (Auto) 10 % (0-9) 5 % (0-9) 11 % (0-9) Eosinophils (%) (Auto) 1 % (0-3) 4 % (0-3) 0 % (0-3) Basophils (%) (Auto) 0 % (0-3) 0 % (0-3) 0 % (0-3) Neutrophils # (Auto) 25.1 x10^3/uL (1.8-7.7) 25.2 x10^3/uL (1.8-7.7) 21.5 x10^3/uL (1.8-7.7) Lymphocytes # (Auto) 1.0 x10^3/uL (1.0-4.8) 0.4 x10^3/uL (1.0-4.8) 0.3 x10^3/uL (1.0-4.8) Monocytes # (Auto) 2.9 x10^3/uL (0.0-1.1) 1.5 x10^3/uL (0.0-1.1) 2.6 x10^3/uL (0.0-1.1) Eosinophils # (Auto) 0.3 x10^3/uL (0.0-0.7) 1.1 x10^3/uL (0.0-0.7) 0.1 x10^3/uL (0.0-0.7) Basophils # (Auto) 0.1 x10^3/uL (0.0-0.2) 0.0 x10^3/uL (0.0-0.2) 0.1 x10^3/uL (0.0-0.2) Segmented Neutrophils % 83 % (35-66) Band Neutrophils % 1 % (0-9) Lymphocytes % 7 % (24-48) Monocytes % 7 % (0-10) Metamyelocytes % 1 % (0-0) Myelocytes % 1 % (0-0) Nucleated Red Blood Cells 52 Platelet Estimate Adequate (ADEQUATE) Polychromasia Occasional Hypochromasia Slight Poikilocytosis Slight Anisocytosis Mod Target Cells Mod Sodium Level 139 mmol/L (136-145) 141 mmol/L (136-145) 142 mmol/L (136-145) Potassium Level 5.7 mmol/L (3.5-5.1) 5.1 mmol/L (3.5-5.1) 5.0 mmol/L (3.5-5.1) Chloride Level 101 mmol/L (98-107) 103 mmol/L (98-107) 106 mmol/L (98-107) Carbon Dioxide Level 29 mmol/L (21-32) 30 mmol/L (21-32) 28 mmol/L (21-32) Anion Gap 9 (6-14) 8 (6-14) 8 (6-14) Blood Urea Nitrogen 41 mg/dL (7-20) 47 mg/dL (7-20) 58 mg/dL (7-20) Creatinine 1.4 mg/dL (0.6-1.0) 1.5 mg/dL (0.6-1.0) 1.6 mg/dL (0.6-1.0) Estimated GFR (Cockcroft-Gault) 49.0 45.2 42.0 BUN/Creatinine Ratio 29 (6-20) Glucose Level 137 mg/dL (70-99) 174 mg/dL (70-99) 216 mg/dL (70-99) Lactic Acid Level 3.2 mmol/L (0.4-2.0) 1.2 mmol/L (0.4-2.0) Calcium Level 8.9 mg/dL (8.5-10.1) 8.5 mg/dL (8.5-10.1) 8.4 mg/dL (8.5-10.1) Total Bilirubin 3.9 mg/dL (0.2-1.0) Aspartate Amino Transf (AST/SGOT) 103 U/L (15-37) Alanine Aminotransferase (ALT/SGPT) 153 U/L (14-59) Alkaline Phosphatase 377 U/L (46-116) Creatine Kinase 67 U/L (26-192) Troponin I Quantitative 0.157 ng/mL (0.000-0.055) 0.129 ng/mL (0.000-0.055) C-Reactive Protein, Quantitative 256.1 mg/L (0-3.3) QK-Pno-E-Type Natriuretic Peptide > 08704 pg/mL (0-124) Total Protein 7.5 g/dL (6.4-8.2) Albumin 3.3 g/dL (3.4-5.0) Albumin/Globulin Ratio 0.8 (1.0-1.7) Procalcitonin 1.30 ng/mL (0.00-0.10) Laboratory Tests Test 09/06/20 09:50 White Blood Count 24.6 x10^3/uL (4.0-11.0) Red Blood Count 2.88 x10^6/uL (3.50-5.40) Hemoglobin 9.1 g/dL (12.0-15.5) Hematocrit 27.0 % (36.0-47.0) Mean Corpuscular Volume 94 fL (79-100) Mean Corpuscular Hemoglobin 31 pg (25-35) Mean Corpuscular Hemoglobin Concent 34 g/dL (31-37) Red Cell Distribution Width 21.4 % (11.5-14.5) Platelet Count 109 x10^3/uL (140-400) Neutrophils (%) (Auto) 88 % (31-73) Lymphocytes (%) (Auto) 1 % (24-48) Monocytes (%) (Auto) 11 % (0-9) Eosinophils (%) (Auto) 0 % (0-3) Basophils (%) (Auto) 0 % (0-3) Neutrophils # (Auto) 21.5 x10^3/uL (1.8-7.7) Lymphocytes # (Auto) 0.3 x10^3/uL (1.0-4.8) Monocytes # (Auto) 2.6 x10^3/uL (0.0-1.1) Eosinophils # (Auto) 0.1 x10^3/uL (0.0-0.7) Basophils # (Auto) 0.1 x10^3/uL (0.0-0.2) Sodium Level 142 mmol/L (136-145) Potassium Level 5.0 mmol/L (3.5-5.1) Chloride Level 106 mmol/L (98-107) Carbon Dioxide Level 28 mmol/L (21-32) Anion Gap 8 (6-14) Blood Urea Nitrogen 58 mg/dL (7-20) Creatinine 1.6 mg/dL (0.6-1.0) Estimated GFR (Cockcroft-Gault) 42.0 Glucose Level 216 mg/dL (70-99) Calcium Level 8.4 mg/dL (8.5-10.1) Medications Active Scripts Medications Dose Route/Sig Max Daily Dose Days Date Category Lyza (Norethindrone) 0.35 Mg Tablet 0.35 Mg PO DAILY 08/29/20 Reported Xopenex (Levalbuterol HCl) 1.25 Mg/3 Ml Vial.neb 1 Vial NEB PRN Q6HRS PRN 20 08/29/20 Reported Diltiazem 24Hr ER (LA) (Diltiazem HCl) 240 Mg Tab.er.24h 1 Tab PO DAILY 30 08/29/20 Reported Metoprolol Succinate ( Xl ) (Metoprolol Succinate) 100 Mg Tab.er.24h 1 Tab PO DAILY 08/29/20 Reported Comments CXR 09/04 IMPRESSION: Persistent perihilar interstitial changes are present with minimal improved aeration. Impression . IMPRESSION: 1. Acute on chronic hypoxemic respiratory failure-- improving 2. Acute exacerbation of sarcoid. 3. Abnormal chest x-ray. 4. Possible pneumonia, gram negative, gram-positive. 5. Acute kidney injury. 6. Abnormal CT chest. Plan . Continue supplemental oxygen as needed to keep oxygen saturations greater than 92%, now on 7 L nasal cannula Continue empiric antibiotic coverage with vancomycin and Zosyn Continue IV steroids at increased dose Await COVID-19 testing, isolation precautions Consider a different immunosuppressive agents such as CellCept or methotrexate Follow clinical course DVT and GI prophylaxis:Pepcid/lovenox Discussed with RN and RT Jeffery for patient to transfer out of the intensive care unit if okay with other consultants Critical care time 1000 to 1035 AM JOES ONEIL MD Sep 06, 2020 11:34
--- NOTE | 2020-09-06 12:44 | PDOC ---
PROGRESS NOTES Date of Service DATE: 09/06/20 TIME: 12:42 Subjective Subjective Patient seen and evaluated. Objective Objective Vital Signs Date Time Temp Pulse Resp B/P (MAP) Pulse Ox O2 Delivery O2 Flow Rate FiO2 09/06/20 11:06 18 100 Nasal Cannula 7.0 09/06/20 08:47 103 112/73 09/06/20 04:00 97.4 97.4 Intake and Output 09/06/20 07:00 Intake Total 550 ml Output Total 600 ml Balance -50 ml Intake Oral 150 ml IV Total 400 ml Output Urine Total 600 ml Assessment Assessment Problems Medical Problems: (1) APRIL (acute kidney injury) Status: Acute (2) Lactic acidemia Status: Acute (3) NSTEMI (non-ST elevated myocardial infarction) Status: Acute (4) Sarcoidosis Status: Acute (5) Transaminitis Status: Acute 1. Respiratory failure. The patient continues to improve on present treatment. Covered with IV antibiotics. Steroids for her sarcoidosis. Followed by pulmonary. 2. Sarcoidosis. As above. 3. Minimally elevated troponin at 0.157 and 0.129. No acute ischemic EKG changes. Most consistent with demand ischemia. We will continue treatment as above. 4. History of hypertension. Blood pressure controlled. Continue present treatment. Comment Review of Relevant I have reviewed the following items kita (where applicable) has been applied. Labs Laboratory Tests Test 09/04/20 12:47 09/04/20 13:40 09/05/20 05:00 09/06/20 09:50 O2 Saturation 97 % (92-99) Arterial Blood pH 7.47 (7.35-7.45) Arterial Blood pCO2 at Patient Temp 38 mmHg (35-46) Arterial Blood pO2 at Patient Temp 108 mmHg (75-108) Arterial Blood HCO3 27 mmol/L (21-28) Arterial Blood Base Excess 4 mmol/L (-3-3) FiO2 100 White Blood Count 29.3 x10^3/uL (4.0-11.0) 28.2 x10^3/uL (4.0-11.0) 24.6 x10^3/uL (4.0-11.0) Red Blood Count 3.36 x10^6/uL (3.50-5.40) 3.18 x10^6/uL (3.50-5.40) 2.88 x10^6/uL (3.50-5.40) Hemoglobin 10.5 g/dL (12.0-15.5) 10.0 g/dL (12.0-15.5) 9.1 g/dL (12.0-15.5) Hematocrit 31.5 % (36.0-47.0) 30.0 % (36.0-47.0) 27.0 % (36.0-47.0) Mean Corpuscular Volume 94 fL (79-100) 94 fL (79-100) 94 fL (79-100) Mean Corpuscular Hemoglobin 31 pg (25-35) 31 pg (25-35) 31 pg (25-35) Mean Corpuscular Hemoglobin Concent 33 g/dL (31-37) 33 g/dL (31-37) 34 g/dL (31-37) Red Cell Distribution Width 21.0 % (11.5-14.5) 21.1 % (11.5-14.5) 21.4 % (11.5-14.5) Platelet Count 228 x10^3/uL (140-400) 173 x10^3/uL (140-400) 109 x10^3/uL (140-400) Neutrophils (%) (Auto) 86 % (31-73) 89 % (31-73) 88 % (31-73) Lymphocytes (%) (Auto) 3 % (24-48) 1 % (24-48) 1 % (24-48) Monocytes (%) (Auto) 10 % (0-9) 5 % (0-9) 11 % (0-9) Eosinophils (%) (Auto) 1 % (0-3) 4 % (0-3) 0 % (0-3) Basophils (%) (Auto) 0 % (0-3) 0 % (0-3) 0 % (0-3) Neutrophils # (Auto) 25.1 x10^3/uL (1.8-7.7) 25.2 x10^3/uL (1.8-7.7) 21.5 x10^3/uL (1.8-7.7) Lymphocytes # (Auto) 1.0 x10^3/uL (1.0-4.8) 0.4 x10^3/uL (1.0-4.8) 0.3 x10^3/uL (1.0-4.8) Monocytes # (Auto) 2.9 x10^3/uL (0.0-1.1) 1.5 x10^3/uL (0.0-1.1) 2.6 x10^3/uL (0.0-1.1) Eosinophils # (Auto) 0.3 x10^3/uL (0.0-0.7) 1.1 x10^3/uL (0.0-0.7) 0.1 x10^3/uL (0.0-0.7) Basophils # (Auto) 0.1 x10^3/uL (0.0-0.2) 0.0 x10^3/uL (0.0-0.2) 0.1 x10^3/uL (0.0-0.2) Segmented Neutrophils % 83 % (35-66) Band Neutrophils % 1 % (0-9) Lymphocytes % 7 % (24-48) Monocytes % 7 % (0-10) Metamyelocytes % 1 % (0-0) Myelocytes % 1 % (0-0) Nucleated Red Blood Cells 52 Platelet Estimate Adequate (ADEQUATE) Polychromasia Occasional Hypochromasia Slight Poikilocytosis Slight Anisocytosis Mod Target Cells Mod Sodium Level 139 mmol/L (136-145) 141 mmol/L (136-145) 142 mmol/L (136-145) Potassium Level 5.7 mmol/L (3.5-5.1) 5.1 mmol/L (3.5-5.1) 5.0 mmol/L (3.5-5.1) Chloride Level 101 mmol/L (98-107) 103 mmol/L (98-107) 106 mmol/L (98-107) Carbon Dioxide Level 29 mmol/L (21-32) 30 mmol/L (21-32) 28 mmol/L (21-32) Anion Gap 9 (6-14) 8 (6-14) 8 (6-14) Blood Urea Nitrogen 41 mg/dL (7-20) 47 mg/dL (7-20) 58 mg/dL (7-20) Creatinine 1.4 mg/dL (0.6-1.0) 1.5 mg/dL (0.6-1.0) 1.6 mg/dL (0.6-1.0) Estimated GFR (Cockcroft-Gault) 49.0 45.2 42.0 BUN/Creatinine Ratio 29 (6-20) Glucose Level 137 mg/dL (70-99) 174 mg/dL (70-99) 216 mg/dL (70-99) Lactic Acid Level 3.2 mmol/L (0.4-2.0) 1.2 mmol/L (0.4-2.0) Calcium Level 8.9 mg/dL (8.5-10.1) 8.5 mg/dL (8.5-10.1) 8.4 mg/dL (8.5-10.1) Total Bilirubin 3.9 mg/dL (0.2-1.0) Aspartate Amino Transf (AST/SGOT) 103 U/L (15-37) Alanine Aminotransferase (ALT/SGPT) 153 U/L (14-59) Alkaline Phosphatase 377 U/L (46-116) Creatine Kinase 67 U/L (26-192) Troponin I Quantitative 0.157 ng/mL (0.000-0.055) 0.129 ng/mL (0.000-0.055) C-Reactive Protein, Quantitative 256.1 mg/L (0-3.3) LR-Emz-V-Type Natriuretic Peptide > 81479 pg/mL (0-124) Total Protein 7.5 g/dL (6.4-8.2) Albumin 3.3 g/dL (3.4-5.0) Albumin/Globulin Ratio 0.8 (1.0-1.7) Procalcitonin 1.30 ng/mL (0.00-0.10) Laboratory Tests Test 09/06/20 09:50 White Blood Count 24.6 x10^3/uL (4.0-11.0) Red Blood Count 2.88 x10^6/uL (3.50-5.40) Hemoglobin 9.1 g/dL (12.0-15.5) Hematocrit 27.0 % (36.0-47.0) Mean Corpuscular Volume 94 fL (79-100) Mean Corpuscular Hemoglobin 31 pg (25-35) Mean Corpuscular Hemoglobin Concent 34 g/dL (31-37) Red Cell Distribution Width 21.4 % (11.5-14.5) Platelet Count 109 x10^3/uL (140-400) Neutrophils (%) (Auto) 88 % (31-73) Lymphocytes (%) (Auto) 1 % (24-48) Monocytes (%) (Auto) 11 % (0-9) Eosinophils (%) (Auto) 0 % (0-3) Basophils (%) (Auto) 0 % (0-3) Neutrophils # (Auto) 21.5 x10^3/uL (1.8-7.7) Lymphocytes # (Auto) 0.3 x10^3/uL (1.0-4.8) Monocytes # (Auto) 2.6 x10^3/uL (0.0-1.1) Eosinophils # (Auto) 0.1 x10^3/uL (0.0-0.7) Basophils # (Auto) 0.1 x10^3/uL (0.0-0.2) Sodium Level 142 mmol/L (136-145) Potassium Level 5.0 mmol/L (3.5-5.1) Chloride Level 106 mmol/L (98-107) Carbon Dioxide Level 28 mmol/L (21-32) Anion Gap 8 (6-14) Blood Urea Nitrogen 58 mg/dL (7-20) Creatinine 1.6 mg/dL (0.6-1.0) Estimated GFR (Cockcroft-Gault) 42.0 Glucose Level 216 mg/dL (70-99) Calcium Level 8.4 mg/dL (8.5-10.1) Microbiology 09/04/20 Blood Culture - Preliminary, Resulted NO GROWTH AFTER 1 DAY Medications Current Medications Rocuronium [place] (Zemuron) 100 mg 1X ONCE IV ; Start 09/04/20 at 12:45; Stop 09/04/20 at 12:50; Status DC Etomidate (Amidate) 20 mg 1X ONCE IV ; Start 09/04/20 at 12:45; Stop 09/04/20 at 12:50; Status DC Fentanyl Citrate 30 ml @ 0 mls/hr CONT PRN IV SEE PROTOCOL; Start 09/04/20 at 12:45; Stop 09/04/20 at 12:50; Status DC Propofol 100 ml @ 0 mls/hr CONT PRN IV SEE PROTOCOL; Start 09/04/20 at 12:45; Stop 09/04/20 at 12:50; Status DC Fentanyl Citrate (Fentanyl 2ml Vial) 25 mcg PRN Q1HR PRN IV SEE COMMENTS; Start 09/04/20 at 12:45; Stop 09/04/20 at 12:50; Status DC Fentanyl Citrate (Fentanyl 2ml Vial) 50 mcg PRN Q1HR PRN IV SEE COMMENTS; Start 09/04/20 at 12:45; Stop 09/04/20 at 12:50; Status DC Chlorhexidine Gluconate (Peridex) 15 ml BID MM ; Start 09/04/20 at 21:00; Stop 09/04/20 at 12:50; Status DC Morphine Sulfate (Morphine Sulfate) 2 mg PRN Q1HR PRN IV SEE COMMENTS.; Start 09/04/20 at 12:45; Stop 09/04/20 at 12:50; Status DC Morphine Sulfate (Morphine Sulfate) 4 mg PRN Q1HR PRN IV SEE COMMENTS.; Start 09/04/20 at 12:45; Stop 09/04/20 at 12:50; Status DC Piperacillin Sod/ Tazobactam Sod 3.375 gm/Sodium Chloride 50 ml @ 100 mls/hr 1X ONCE IV Last administered on 09/04/20at 13:19; Start 09/04/20 at 13:00; Stop 09/04/20 at 13:29; Status DC Vancomycin HCl 2 gm/Sodium Chloride 500 ml @ 250 mls/hr 1X ONCE IV Last administered on 09/04/20at 16:29; Start 09/04/20 at 13:00; Stop 09/04/20 at 14:59; Status DC Methylprednisolone Sodium Succinate (SOLU-Medrol 125MG VIAL) 125 mg 1X ONCE IV Last administered on 09/04/20at 13:20; Start 09/04/20 at 13:15; Stop 09/04/20 at 13:16; Status DC Furosemide (Lasix) 40 mg 1X ONCE IVP Last administered on 09/04/20at 15:58; Start 09/04/20 at 15:00; Stop 09/04/20 at 15:01; Status DC Acetaminophen (Tylenol) 650 mg PRN Q6HRS PRN PO Headaches, Temp > 101.5'; Start 09/04/20 at 15:45 Lorazepam (Ativan Inj) 0.5 mg PRN Q6HRS PRN IVP ANXIETY / AGITATION Last administered on 09/05/20at 16:53; Start 09/04/20 at 15:45 Ondansetron HCl (Zofran) 4 mg PRN Q6HRS PRN IVP NAUSEA/VOMITING; Start 09/04/20 at 15:45 Calcium Carbonate/ Glycine (Tums) 500 mg PRN Q3HRS PRN PO HEARTBURN / GAS; Start 09/04/20 at 15:45 Famotidine (Pepcid) 20 mg BID PO Last administered on 09/06/20at 08:16; Start 09/04/20 at 21:00 Zolpidem Tartrate (Ambien) 5 mg PRN QHS PRN PO INSOMNIA, MAY REPEAT IN 1HR; Start 09/04/20 at 15:45 Info (Icu Electrolyte Protocol) 1 ea DAILY MC Last administered on 09/05/20at 08:46; Start 09/05/20 at 09:00 Enoxaparin Sodium (Lovenox 40mg Syringe) 40 mg Q24H SQ Last administered on 09/05/20at 21:41; Start 09/04/20 at 21:00 Sodium Chloride (Normal Saline Flush) 3 ml QSHIFT PRN IV AFTER MEDS AND BLOOD DRAWS; Start 09/04/20 at 15:45 Sodium Chloride 1,000 ml @ 100 mls/hr Q10H IV Last administered on 09/06/20at 08:26; Start 09/04/20 at 15:37 Acetaminophen/ Hydrocodone Bitart (Lortab 5/325) 1 tab PRN Q4HRS PRN PO MILD PAIN 1-3 Last administered on 09/06/20at 11:06; Start 09/04/20 at 15:45 Acetaminophen/ Hydrocodone Bitart (Lortab 5/325) 1 tab PRN Q4HRS PRN PO MILD PAIN, 2ND CHOICE; Start 09/04/20 at 15:45; Status Cancel Morphine Sulfate (Morphine Sulfate) 2 mg PRN Q1HR PRN IV PAIN Last administered on 09/06/20at 08:32; Start 09/04/20 at 15:45 Senna/Docusate Sodium (Senna Plus) 1 tab BID PO Last administered on 09/06/20at 08:16; Start 09/04/20 at 21:00 Lactulose (Lactulose) 20 gm PRN Q12HR PRN PO CONSTIPATION; Start 09/04/20 at 15:45 Methylprednisolone Sodium Succinate (SOLU-Medrol 125MG VIAL) 125 mg Q8HRS IV Last administered on 09/06/20at 05:22; Start 09/04/20 at 22:00 Labetalol HCl (Normodyne Iv Push) 10 mg Q4HRS PRN IVP HYPERTENSION; Start 09/04/20 at 19:15 Influenza Virus Vaccine Quadrival (Fluzone Quad Syringe) 0.5 ml ONCE ONCE VAX IM ; Start 09/05/20 at 09:00; Stop 09/05/20 at 09:01; Status DC Albuterol Sulfate (Ventolin Neb Soln) 2.5 mg PRN Q4HRS PRN NEB SHORTNESS OF BREATH; Start 09/05/20 at 07:15; Stop 09/06/20 at 08:40; Status DC Vancomycin HCl (Vanco Per Pharmacy) 1 each PRN DAILY PRN MC SEE COMMENTS Last administered on 09/05/20at 09:11; Start 09/05/20 at 09:00 Piperacillin Sod/ Tazobactam Sod (Zosyn Per Pharmacy) 1 each PRN DAILY PRN MC SEE COMMENTS; Start 09/05/20 at 09:00 Piperacillin Sod/ Tazobactam Sod 3.375 gm/Sodium Chloride 50 ml @ 100 mls/hr Q6HRS IV Last administered on 09/06/20at 05:23; Start 09/05/20 at 09:00 Vancomycin HCl 1.5 gm/Sodium Chloride 500 ml @ 250 mls/hr Q24H IV Last administered on 09/05/20at 16:39; Start 09/05/20 at 17:00 Vancomycin HCl (Vancomycin Trough Level) 1 each 1X ONCE MC ; Start 09/07/20 at 16:30; Stop 09/07/20 at 16:31 Metoprolol Succinate (Toprol Xl) 100 mg DAILY PO ; Start 09/06/20 at 09:00 Diltiazem HCl (Cardizem 24hr Cd) 240 mg DAILY PO Last administered on 09/06/20at 08:47; Start 09/06/20 at 09:00 Albuterol Sulfate (Ventolin Neb Soln) 2.5 mg PRN Q6HRS PRN NEB SHORTNESS OF BREATH; Start 09/06/20 at 08:45 Non-Formulary Medication (Norethindrone (Lyza)) 0.35 mg DAILY PO ; Start 09/06/20 at 09:00; Status UNV Active Scripts Active Reported Lyza (Norethindrone) 0.35 Mg Tablet 0.35 Mg PO DAILY Xopenex (Levalbuterol HCl) 1.25 Mg/3 Ml Vial.neb 1 Vial NEB PRN Q6HRS PRN 20 Days Diltiazem 24Hr ER (LA) (Diltiazem HCl) 240 Mg Tab.er.24h 1 Tab PO DAILY 30 Days Metoprolol Succinate ( Xl ) (Metoprolol Succinate) 100 Mg Tab.er.24h 1 Tab PO DAILY Vitals/I & O Vital Sign - Last 24 Hours 09/05/20 09/05/20 09/05/20 09/05/20 12:49 13:00 14:00 15:00 Pulse 114 101 102 Resp 30 38 40 B/P (MAP) 110/71 (84) 107/78 (88) 107/75 (86) Pulse Ox 95 95 99 100 O2 Delivery High Flow Nasal Cannula Nasal Cannula Nasal Cannula Nasal Cannula O2 Flow Rate 10.0 10.0 10.0 10.0 09/05/20 09/05/20 09/05/20 09/05/20 16:00 16:00 17:00 18:00 Temp 98.4 98.4 Pulse 104 105 105 Resp 29 32 40 B/P (MAP) 116/72 (87) 111/76 (88) 105/74 (84) Pulse Ox 98 96 99 O2 Delivery Nasal Cannula Nasal Cannula Nasal Cannula Nasal Cannula O2 Flow Rate 10.0 10.0 8.0 8.0 09/05/20 09/05/20 09/05/20 09/05/20 19:30 19:45 20:00 21:00 Temp 98.4 98.4 Pulse 103 110 108 Resp 26 28 26 B/P (MAP) 112/79 (90) 121/75 (90) 111/67 (82) Pulse Ox 98 93 96 O2 Delivery Nasal Cannula Nasal Cannula Nasal Cannula Nasal Cannula O2 Flow Rate 8.0 8.0 8.0 8.0 09/05/20 09/05/20 09/05/20/11/20 22:00 23:16 23:59 00:01 Temp 97.6 97.6 Pulse 106 100 100 Resp 28 30 30 B/P (MAP) 99/71 (80) 99/74 (82) 108/69 (82) Pulse Ox 97 100 99 O2 Delivery Nasal Cannula Nasal Cannula Nasal Cannula Nasal Cannula O2 Flow Rate 8.0 8.0 8.0 8.0 09/06/20 09/06/20 09/06/20 09/06/20 01:00 02:03 03:08 04:00 Temp 97.4 97.4 Pulse 94 96 93 95 Resp 20 24 20 27 B/P (MAP) 127/74 (91) 111/76 (88) 102/79 (87) 112/76 (88) Pulse Ox 100 100 100 100 O2 Delivery Nasal Cannula Nasal Cannula Nasal Cannula Nasal Cannula O2 Flow Rate 8.0 8.0 8.0 8.0 09/06/20 09/06/20 09/06/20 09/06/20 04:11 05:00 06:20 08:32 Pulse 96 93 Resp 20 22 18 B/P (MAP) 117/71 (86) 113/73 (86) Pulse Ox 100 100 O2 Delivery Nasal Cannula Nasal Cannula Nasal Cannula Nasal Cannula O2 Flow Rate 8.0 8.0 8.0 8.0 09/06/20 09/06/20 08:47 11:06 Pulse 103 Resp 18 B/P (MAP) 112/73 Pulse Ox 100 O2 Delivery Nasal Cannula O2 Flow Rate 7.0 Intake and Output 09/05/20 09/05/20 09/06/20 15:00 23:00 07:00 Intake Total 100 ml 400 ml 50 ml Output Total 400 ml 200 ml Balance -300 ml 200 ml 50 ml Justifications for Admission Other Justification BRADEN DOWELL MD Sep 06, 2020 12:44
[2020-09-06] MEDS: VANCOMYCIN 1.5 GM in IV NORMAL SALINE 500ML BAG 500 ML IV SCH (17:25)
[2020-09-06] MEDS: ENOXAPARIN 40 MG/0.4 ML SYRINGE. SQ SCH (21:28)
[2020-09-06 23:33] LABS: BASE EXCESS ABG -6 mmol/L (-3-3); CORRECTED PCO2 ABG 34 mmHg; CORRECTED PH ABG 7.37; CORRECTED PO2 ABG 55 mmHg; HCO3 ABG 20 mmol/L (21-28); PCO2 ABG 37 mmHg (35-46); PO2 ABG 62 mmHg (75-108); SAT O2 ABG 84 % (92-99)
[2020-09-06 23:35] LABS: FIO2 ABG 44
[2020-09-07 00:08] LABS: BASO # 0.5 x10^3/uL (0.0-0.2); BASO % 2 % (0-3); EOS # 0.1 x10^3/uL (0.0-0.7); EOS % 0 % (0-3); HEMOGLOBIN 8.2 g/dL (12.0-15.5); LYMPH # 0.8 x10^3/uL (1.0-4.8); LYMPH % 3 % (24-48); MEAN CORPUSCULAR HEMOGLOBIN 31 pg (25-35); MEAN CORPUSCULAR HGB CONC 33 g/dL (31-37); MEAN CORPUSCULAR VOLUME 95 fL (79-100); MONO % 7 % (0-9); NEUT # 26.7 x10^3/uL (1.8-7.7); NEUT % 89 % (31-73); PLATELET COUNT 58 x10^3/uL (140-400); RED BLOOD COUNT 2.63 x10^6/uL (3.50-5.40); RED CELL DISTRIBUTION WIDTH 21.5 % (11.5-14.5)
--- NOTE | 2020-09-07 00:16 | RAD ---
EXAM: CHEST AP ONLY 09/06/2020 11:20 PM CLINICAL INDICATION:Difficulty breathing COMPARISON:Chest radiograph 09/04/2020 FINDINGS:The cardiomediastinal silhouette is unchanged. The lungs remain hypoexpanded. Patchy bilateral airspace opacities, greatest in the perihilar region bilaterally, are unchanged. No pleural effusion or pneumothorax. No acute osseous abnormality. IMPRESSION:Unchanged perihilar predominant bilateral airspace opacities. Electronically signed by: Sobia Montanez MD (09/07/2020 12:13 AM) [id number]
[2020-09-07 00:30] LABS: ALBUMIN 2.9 g/dL (3.4-5.0); ALBUMIN/GLOBULIN RATIO 0.7 (1.0-1.7); CALCIUM 8.3 mg/dL (8.5-10.1); CREATININE 2.3 mg/dL (0.6-1.0); GFR 27.6; TOTAL BILIRUBIN 3.1 mg/dL (0.2-1.0); TOTAL PROTEIN 6.8 g/dL (6.4-8.2)
[2020-09-07 00:35] LABS: POTASSIUM 6.2 mmol/L (3.5-5.1)
[2020-09-07] MEDS ORDERED: SODIUM POLYSTYRENE SULFON/SORB 15 GM/60 ML ORAL.SUSP. RC ONE (01:00)
[2020-09-07] MEDS ORDERED: FUROSEMIDE 40 MG/4 ML VIAL. IVP ONE ×2 (01:00→02:30)
--- NOTE | 2020-09-07 01:00 | NUR ---
Called to a rapid response due to hypotension and labored breathing. ABG done and Dr. Trinidad was called with patients Potassium and BNP. He ordered for patient to be moved to the ICU and started on Levophed for low blood pressures. Patient is minimally responsive now. Chest XRay was taken and was worse than the one done on admission. Talked with Dr. Colvin and was told to place patient on Bipap and give an additional 40 of Lasix. Pt was moved to room 110. Addendum: 09/07/20 at 0211 by DINORA MONTIEL RN Amended: Links added.
[2020-09-07] MEDS: PIPERACILLIN/TAZOBACTAM 3.375 GM in IV NORMAL SALINE 50ML 50 ML IV SCH (01:12)
[2020-09-07] MEDS: NOREPINEPHRINE VIAL 8 MG in IV DEXTROSE 5% 250 ML IV PRN ×2 (01:15→03:14)
[2020-09-07 02:15] VITALS: BP 90/48
[2020-09-07] MEDS ORDERED: ANTI-COAG MONITOR BY PHARMACY. MC PRN (02:15)
--- NOTE | 2020-09-07 04:07 | EKG ---
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
[2020-09-07] MEDS ORDERED: LIDOCAINE 1% Multi-Dose 20 ML VIAL. ONE (04:40)
[2020-09-07] MEDS ORDERED: HEPARIN for ARTERIAL LINE 0 ML ONE (04:40)
[2020-09-07] MEDS ORDERED: IODIXANOL 320 MG/ML 100 ML VIAL. ONE (04:40)
--- NOTE | 2020-09-07 05:33 | PDOC5 ---
CODE REPORT CODE REPORT Fingernail CODE BLUE: (EMERGENCY DEPARTMENT NOTE) HPI: Called emergently to ICU to respond to consult for inpatient hospital code. Patient reportedly had begun to become bradycardic with concern for possible ST elevation on telemetry monitoring. Patient previously admitted for NSTEMI, sarcoidosis, SIRS with possible pneumonia and suspected COVID. Of note: COVID testing negative. WING MARTE initiated at 0415 with initial rhythm PEA. Assesment: Constitutional: Well developed, well nourished, unresponsive -[place] female HENT: Normocephalic, atraumatic Eyes: Pupils dilated, conjunctiva normal, no discharge Neck: Normal range of motion, supple Cardiovascular: Absent femoral and carotid pulsed, CR > 3 sec Lungs & Thorax: Apnea, bilateral breath course with bag valve mask respirations Abdomen: Soft, no distention Skin: Warm, dry, no erythema, no rash Extremities: No tenderness, ROM intact, trace BLE edema Neurologic: GCS 3, Unresponsive MDM: (See hospital code sheet) WING Marte called at 0415 for patient in PEA arrest. ACLS protocol initiated. Patient intubated at 0424 during resuscitative efforts. A total of 6 rounds of epinephrine provided in addition to 1 amp of calcium gluconate and 1 amp of BiCarb. At no time did spontaneous circulation return. Patient's accucheck was 219. Patient with PEA on monitor on all pulse checks. Patient subsequently with frothy bloody sputum consistent for pulmonary contusions secondary to CPR efforts. Decision to terminate further resuscitative efforts due to patient's unchanged/worsening condition. Time of called at 0436. Discussed with patient's son, Senait, regarding outcome, who acknowledges understanding. Hospitalist- Dr. Trinidad notified. Clinical Impression: 1) Cardiopulmonary Arrest Condition: Critical Care Statement: Critical care time was 30 minutes which includes time at bedside, spent in discussion of patient's care with specialists and/or family members, with interp retation of laboratory and/or radiological studies and is exclusive of procedures. Selection Intubation Intubation : Time of Intubation: 04:24 Intubation Method: orotracheal Tube Size (cm): 7.5 Breath Sounds after Intubation: equal Intubation Complications: no complications Progress Emergent consent obtained. Time out performed. Hand hygiene utilized. Glidescope utilized during resuscitative efforts (CPR) with successful placement of 7.5 cuffed ETT which was marked 22cm at lip. DANNI ROSAS DO Sep 07, 2020 05:33
--- NOTE | 2020-09-07 05:46 | PDOC ---
FOLLOW UP STEMI note. The patient was a 45-year-old female with a history of respiratory failure and sarcoidosis. She improved initially after treatment and was moved to the floor later in the day yesterday. Earlier this morning the patient by report became increasingly less responsive and had a decline in her blood pressure. She was moved to the ICU. She was started on pressors. At approximately 4 AM a 12-lead EKG was done that was an abnormal tracing with inferior ST segment changes including elevation and depression in V1 and V2. An STEMI was called by the nursing material control supervisor. During my call back to the floor while discussing the case with the patient's nurse the patient arrested. The nurse returned to the bedside and the STEMI team continue to come in. I rechecked on the patient's condition from my car. The patient unfortunately had not recover from her CODE BLUE. The patient had PEA during the code by report and she was not able to be resuscitated. The STEMI was canceled. I proceeded in to review the patient . BRADEN DOWELL MD Sep 07, 2020 05:45
--- NOTE | 2020-09-07 06:15 | NUR ---
Patient transferred down to ICU at 0035 to room 110 via bed accompanied by nursing supervisor area and RN. Bedside report received. Patient attached to ICU monitors. Patient very obtunded and arouses only to pain. Patient SR/ST on monitor. Breathing labored, bradypneic, and diminished crackles in lungs anteriorly upon auscultation. Patient on 8 L NC upon arrival. Patient skin is cold. Unable to get blood pressures and O2 saturation frequently. Patient placed on levophed. Only 1 patent IV present, with multiple RNs attempting to place new IV without success. Unable to orient patient to unit and routines at this time. Critical Potassium of 6.2 called by lab. ICU CN called Dr. Trinidad about critical, orders received to give Kayexalate enema and 40 mg lasix x1 dose. Rectal tube inserted, Kayexalate given, and rectal tube clamped for 30 minutes. Clamp then released. Patient's blood glucose checked and was normal. Around 0200 Dr. Colvin paged about patient's breathing. Orders received to place patient on the bipap, give another 40 mg lasix, and change dose of Lovenox to mg/kg. After a couple hours on the bipap, patient began to wake up more and was pulling at bipap mask and taking it off. Patient still was not very responsive and would only open eyes for a few seconds. She would not speak but moan and make sounds. Patient was then placed back on nasal cannula to see if she could tolerate it. At this time, patient's temperature was low and tracey hugger and warm blankets were placed on the patient. Patient seemed to tolerate nasal cannula well and temperature corrected. Tracey hugger was turned off. Continued to be unable to get an accurate blood pressure on the patient. Multiple RNs attempted to move cuff. Utilized 2 different leg cuffs, radial cuff, and adult long cuff on upper arm. All cuffs produced a mean only result if able to get blood pressure at all. RNs continued to titrate Levophed. A little before 0400 patient began to get very obtunded again. This RN went into room to try to get blood pressure and oxygen saturation readings. I left the room to check on another patient and another RN asked if the patient "had been in this rhythm". I looked up at the monitor and patient had new evident ST elevation. 12 lead EKG and troponin were ordered, lab paged to come draw morning labs and new orders stat. Respiratory therapy paged to come do EKG stat. EKG completed and showed ST elevation, ICU CN notified nursing supervisor area and code STEMI was called. Code cart placed outside of room, patched placed on patient's chest, respiratory therapy present, and multiple nurses in room. Patient began to george down into 30s but maintained a pulse. At this time Dr. Huber called the unit to find out what was going on and to get more information about the patient. Dr. Huber updated by ICU CN and this RN, but mid phone call the patient coded. ED physician arrived with ED RNs and code continued for about 20-25 minutes (see code sheet in patient chart). Patient remained PEA throughout code, was intubated but had blood coming up through ETT, and patient never regained a pulse. This RN notified Johnathon, the patient's boyfriend, who was the only contact center professional that we had listed. Johnathon was informed that he could come up, but that we were currently coding the patient and that the outcome did not look good. After getting off the phone with JohnathonSee, patient's son, called the unit to get information. At this time the ED physician decided to call the code and stated he would come talk to family. ED physician notified patient's family of her and events leading up to it. We then asked the son about a home and autopsy, but he stated he wasn't sure and needed to call a couple people before giving that information. ICU CN then notified [facility] about patient's . Johnathon then arrived to the unit and stayed in the room with the patient. After awhile he came out and asked a few questions and had the patient's daughter, Madelin, on the phone. Madelin stated that she wanted the body sent back to [place] (where both the kids currently live) and that she would like to use [facility] in [place], but that the family would not be interested in an autopsy--they just wanted to get their mom home as soon as possible. Dr Trinidad, Dr. Colvin, and Dr. Huber notified of patient's expiration. Will continue to communicate with family.
--- NOTE | 2020-09-07 07:47 | PDOC ---
[employer] PROGRESS NOTE Date of Service DOS: DATE: 09/07/20 TIME: 07:47 Chief Complaint Chief Complaint Assessment/Plan Sirs criteria present on admission most likely secondary to lung pathology Healthcare associated pneumonia? Acute sarcoidosis flareup Steroid induced myopathy pretty much ruled out, patient moving extremities today better than yesterday, CK level noted. NSTEMI and STEMI Essential hypertension Acute renal failure most likely secondary to vasomotor nephropathy present on admission Elevated lactic acid secondary to most likely infectious process Person under investigation for COVID-19 Chronic steroid use Osteoporosis as per the patient Transaminitis which could be reactive versus fatty infiltration Hyperglycemia most likely secondary to steroid use Mild hyperkalemia with no clinical significance and no EKG changes History of Present Illness History of Present Illness Ms Sorto is a 45yo F w/ PMHx sarcoidosis, HTN who presents with chief complaint of progressive shortness of breath over the past several days. She notes that she is more short of breath than usual with exertion. She denies any shortness of breath at rest. Denies chest pain. Denies syncope. States this feels similar to previous sarcoidosis flares. She does take prednisone daily. She does note that she recently traveled from [place] to visit family in the area, she drove herself. No history of VTE. Denies any swelling to the legs. Denies any known exposure to coronavirus. Denies fevers.Denies any abdominal pain. Denies syncope. Deniz es any cardiac history or invasive cardiac disease. No nausea no vomiting. Denies diaphoresis. No other complaints. Hypoxic to 73% on room air in ED. She does not wear home O2. CXR with diffuse bilateral interstitial opacities. CTPA negative for PE, did show diffuse groundglass opacities scattered throughout both lungs. During her last hospital stay she was seen in consultation by pulmonology and she was placed on high-dose IV steroids. This was transitioned to an oral taper which apparently has not been taken by the patient. The patient denies any sick contacts between her date of discharge from Monday until today. She denies any fever no chills the patient is exhibiting good inspiratory effort during my interview. Nevertheless her lower extremities seem to be quite weak. According to her boyfriend she seems to have declined during her hospital stay and by the time she was discharged they relate to me that she could barely walk. This was also the reason why she was brought into the emergency department. She has been pretty much bedbound for the last 2 days and she is unable to walk without assistance the patient denied any slurred speech no hemiparesis no hemiplegia no paresthesias reported. She denies dysphagia odynophagia no chest pain palpit ations or shortness of breath. She denies nausea vomiting diarrhea, no urinary symptoms. She has had lower extremity edema for a long time and this seems to be related to her steroid therapy which is chronic in nature. 09/05: No acute events reported overnight, case discussed with nursing staff patient in no acute distress no complaints during my visit 09/06: Patient continued to do much better compared to yesterday. Due to worsening oxygen status patient transferred to the intensive care unit overnight low blood pressure drug patient was placed on levo fed in diuretic patient was placed on BiPAP. She was unable to tolerate this. At over [address] elevations are noted on telemetry. EKG 0415 for patient in PEA arrest. ACLS protocol initiated. Patient intubated at 0424 during resuscitative efforts. A total of 6 rounds of epinephrine provided in addition to 1 amp of calcium gluconate and 1 amp of BiCarb. At no time did spontaneous circulation return. Patient's accucheck was 219. Patient with PEA on monitor on all pulse checks. Patient subsequently with frothy bloody sputum consistent for pulmonary contusions secondary to CPR efforts. Decision to terminate further resuscitative efforts due to patient's unchanged/worsening condition by ED physician and with son. Time of called at 0436. Vitals/I&O Vitals/I&O: Vital Signs Date Time Temp Pulse Resp B/P (MAP) Pulse Ox O2 Delivery O2 Flow Rate FiO2 09/07/20 04:00 90 20 BiPAP/CPAP 09/07/20 03:15 94 09/07/20 01:45 8.0 09/07/20 00:45 97.6 97.6 I & O 09/06/20 09/06/20 09/07/20 15:00 23:00 07:00 Intake Total 150 ml 60 ml Output Total 700 ml 290 ml Balance -700 ml 150 ml -230 ml Physical Exam Physical Exam: No pulse, no respiratory activity Labs Labs: Laboratory Tests Test 09/06/20 09:50 09/06/20 23:25 09/06/20 23:34 09/06/20 23:50 White Blood Count 24.6 x10^3/uL (4.0-11.0) 30.0 x10^3/uL (4.0-11.0) Red Blood Count 2.88 x10^6/uL (3.50-5.40) 2.63 x10^6/uL (3.50-5.40) Hemoglobin 9.1 g/dL (12.0-15.5) 8.2 g/dL (12.0-15.5) Hematocrit 27.0 % (36.0-47.0) 25.0 % (36.0-47.0) Mean Corpuscular Volume 94 fL (79-100) 95 fL (79-100) Mean Corpuscular Hemoglobin 31 pg (25-35) 31 pg (25-35) Mean Corpuscular Hemoglobin Concent 34 g/dL (31-37) 33 g/dL (31-37) Red Cell Distribution Width 21.4 % (11.5-14.5) 21.5 % (11.5-14.5) Platelet Count 109 x10^3/uL (140-400) 58 x10^3/uL (140-400) Neutrophils (%) (Auto) 88 % (31-73) 89 % (31-73) Lymphocytes (%) (Auto) 1 % (24-48) 3 % (24-48) Monocytes (%) (Auto) 11 % (0-9) 7 % (0-9) Eosinophils (%) (Auto) 0 % (0-3) 0 % (0-3) Basophils (%) (Auto) 0 % (0-3) 2 % (0-3) Neutrophils # (Auto) 21.5 x10^3/uL (1.8-7.7) 26.7 x10^3/uL (1.8-7.7) Lymphocytes # (Auto) 0.3 x10^3/uL (1.0-4.8) 0.8 x10^3/uL (1.0-4.8) Monocytes # (Auto) 2.6 x10^3/uL (0.0-1.1) 2.0 x10^3/uL (0.0-1.1) Eosinophils # (Auto) 0.1 x10^3/uL (0.0-0.7) 0.1 x10^3/uL (0.0-0.7) Basophils # (Auto) 0.1 x10^3/uL (0.0-0.2) 0.5 x10^3/uL (0.0-0.2) Sodium Level 142 mmol/L (136-145) 140 mmol/L (136-145) Potassium Level 5.0 mmol/L (3.5-5.1) 6.2 mmol/L (3.5-5.1) Chloride Level 106 mmol/L (98-107) 104 mmol/L (98-107) Carbon Dioxide Level 28 mmol/L (21-32) 20 mmol/L (21-32) Anion Gap 8 (6-14) 16 (6-14) Blood Urea Nitrogen 58 mg/dL (7-20) 74 mg/dL (7-20) Creatinine 1.6 mg/dL (0.6-1.0) 2.3 mg/dL (0.6-1.0) Estimated GFR (Cockcroft-Gault) 42.0 27.6 Glucose Level 216 mg/dL (70-99) 261 mg/dL (70-99) Calcium Level 8.4 mg/dL (8.5-10.1) 8.3 mg/dL (8.5-10.1) Glucose (Fingerstick) 261 mg/dL (70-99) O2 Saturation 84 % (92-99) Arterial Blood pH 7.34 (7.35-7.45) Arterial Blood pH (Temp corrected) 7.37 Arterial Blood pCO2 at Patient Temp 37 mmHg (35-46) Arterial Blood pCO2 (Temp correct) 34 mmHg Arterial Blood pO2 at Patient Temp 62 mmHg (75-108) Arterial Blood pO2 (Temp corrected) 55 mmHg Arterial Blood HCO3 20 mmol/L (21-28) Arterial Blood Base Excess -6 mmol/L (-3-3) FiO2 44 BUN/Creatinine Ratio 32 (6-20) Total Bilirubin 3.1 mg/dL (0.2-1.0) Aspartate Amino Transf (AST/SGOT) 214 U/L (15-37) Alanine Aminotransferase (ALT/SGPT) 206 U/L (14-59) Alkaline Phosphatase 397 U/L (46-116) Total Protein 6.8 g/dL (6.4-8.2) Albumin 2.9 g/dL (3.4-5.0) Albumin/Globulin Ratio 0.7 (1.0-1.7) Test 09/07/20 00:01 09/07/20 02:18 09/07/20 04:20 09/07/20 04:23 LW-Nwt-I-Type Natriuretic Peptide > 05474 pg/mL (0-124) Glucose (Fingerstick) 270 mg/dL (70-99) 219 mg/dL (70-99) Troponin I Quantitative 0.515 ng/mL (0.000-0.055) Assessment and Plan Assessmemt and Plan Problems Medical Problems: (1) APRIL (acute kidney injury) Status: Acute (2) Lactic acidemia Status: Acute (3) NSTEMI (non-ST elevated myocardial infarction) Status: Acute (4) Sarcoidosis Status: Acute (5) Transaminitis Status: Acute Comment Review of Relevant I have reviewed the following items kita (where applicable) has been applied. Medications: Current Medications Medications (Trade) Dose Ordered Sig/Jan Route PRN Reason Start Time Stop Time Status Last Admin Dose Admin Diltiazem HCl (Cardizem 24hr Cd) 240 mg DAILY PO 09/06/20 09:00 09/06/20 08:47 Norepinephrine Bitartrate 8 mg/ Dextrose 258 ml @ 19.04 mls/ hr CONT PRN IV PER PROTOCOL 09/06/20 23:45 09/07/20 03:14 Furosemide (Lasix) 40 mg 1X ONCE IVP 09/07/20 01:00 09/07/20 01:01 DC 09/07/20 01:13 Sodium Polystyrene Sulfonate (Kayexalate) 30 gm 1X ONCE RC 09/07/20 01:00 09/07/20 01:01 DC 09/07/20 01:13 Furosemide (Lasix) 40 mg 1X ONCE IVP 09/07/20 02:30 09/07/20 02:31 DC 09/07/20 02:21 Enoxaparin Sodium (Lovenox 100mg Syringe) 100 mg Q12HR SQ 09/07/20 02:30 09/07/20 03:14 Info (Anti-Coagulation Monitoring By Pharmacy) 1 each PRN DAILY PRN MC SEE COMMENTS 09/07/20 02:15 09/07/20 05:41 Justifications for Admission Other Justification ROX CHARLTON MD Sep 07, 2020 07:47
--- NOTE | 2020-09-07 09:37 | PDOC3 ---
Discharge Summary Visit Information Date of Admission: Sep 04, 2020 Date of Discharge: Sep 07, 2020 Admitting Diagnosis: NSTEMI Final Diagnosis Problems Medical Problems: (1) APRIL (acute kidney injury) Status: Acute (2) Lactic acidemia Status: Acute (3) NSTEMI (non-ST elevated myocardial infarction) Status: Acute (4) Sarcoidosis Status: Acute (5) Transaminitis Status: Acute Brief Hospital Course Allergies Allergies Coded Allergies Type Severity Reaction Last Updated Verified Sulfa (Sulfonamide Antibiotics) Allergy Intermediate 08/29/20 Yes peanut Allergy Intermediate 08/29/20 Yes Vital Signs Vital Signs Date Time Temp Pulse Resp B/P (MAP) Pulse Ox O2 Delivery O2 Flow Rate FiO2 09/07/20 04:00 90 20 BiPAP/CPAP 09/07/20 03:15 94 09/07/20 01:45 8.0 09/07/20 00:45 97.6 97.6 Lab Results Laboratory Tests Test 09/06/20 09:50 09/06/20 23:25 09/06/20 23:34 09/06/20 23:50 White Blood Count 24.6 x10^3/uL (4.0-11.0) 30.0 x10^3/uL (4.0-11.0) Red Blood Count 2.88 x10^6/uL (3.50-5.40) 2.63 x10^6/uL (3.50-5.40) Hemoglobin 9.1 g/dL (12.0-15.5) 8.2 g/dL (12.0-15.5) Hematocrit 27.0 % (36.0-47.0) 25.0 % (36.0-47.0) Mean Corpuscular Volume 94 fL (79-100) 95 fL (79-100) Mean Corpuscular Hemoglobin 31 pg (25-35) 31 pg (25-35) Mean Corpuscular Hemoglobin Concent 34 g/dL (31-37) 33 g/dL (31-37) Red Cell Distribution Width 21.4 % (11.5-14.5) 21.5 % (11.5-14.5) Platelet Count 109 x10^3/uL (140-400) 58 x10^3/uL (140-400) Neutrophils (%) (Auto) 88 % (31-73) 89 % (31-73) Lymphocytes (%) (Auto) 1 % (24-48) 3 % (24-48) Monocytes (%) (Auto) 11 % (0-9) 7 % (0-9) Eosinophils (%) (Auto) 0 % (0-3) 0 % (0-3) Basophils (%) (Auto) 0 % (0-3) 2 % (0-3) Neutrophils # (Auto) 21.5 x10^3/uL (1.8-7.7) 26.7 x10^3/uL (1.8-7.7) Lymphocytes # (Auto) 0.3 x10^3/uL (1.0-4.8) 0.8 x10^3/uL (1.0-4.8) Monocytes # (Auto) 2.6 x10^3/uL (0.0-1.1) 2.0 x10^3/uL (0.0-1.1) Eosinophils # (Auto) 0.1 x10^3/uL (0.0-0.7) 0.1 x10^3/uL (0.0-0.7) Basophils # (Auto) 0.1 x10^3/uL (0.0-0.2) 0.5 x10^3/uL (0.0-0.2) Sodium Level 142 mmol/L (136-145) 140 mmol/L (136-145) Potassium Level 5.0 mmol/L (3.5-5.1) 6.2 mmol/L (3.5-5.1) Chloride Level 106 mmol/L (98-107) 104 mmol/L (98-107) Carbon Dioxide Level 28 mmol/L (21-32) 20 mmol/L (21-32) Anion Gap 8 (6-14) 16 (6-14) Blood Urea Nitrogen 58 mg/dL (7-20) 74 mg/dL (7-20) Creatinine 1.6 mg/dL (0.6-1.0) 2.3 mg/dL (0.6-1.0) Estimated GFR (Cockcroft-Gault) 42.0 27.6 Glucose Level 216 mg/dL (70-99) 261 mg/dL (70-99) Calcium Level 8.4 mg/dL (8.5-10.1) 8.3 mg/dL (8.5-10.1) Glucose (Fingerstick) 261 mg/dL (70-99) O2 Saturation 84 % (92-99) Arterial Blood pH 7.34 (7.35-7.45) Arterial Blood pH (Temp corrected) 7.37 Arterial Blood pCO2 at Patient Temp 37 mmHg (35-46) Arterial Blood pCO2 (Temp correct) 34 mmHg Arterial Blood pO2 at Patient Temp 62 mmHg (75-108) Arterial Blood pO2 (Temp corrected) 55 mmHg Arterial Blood HCO3 20 mmol/L (21-28) Arterial Blood Base Excess -6 mmol/L (-3-3) FiO2 44 BUN/Creatinine Ratio 32 (6-20) Total Bilirubin 3.1 mg/dL (0.2-1.0) Aspartate Amino Transf (AST/SGOT) 214 U/L (15-37) Alanine Aminotransferase (ALT/SGPT) 206 U/L (14-59) Alkaline Phosphatase 397 U/L (46-116) Total Protein 6.8 g/dL (6.4-8.2) Albumin 2.9 g/dL (3.4-5.0) Albumin/Globulin Ratio 0.7 (1.0-1.7) Test 09/07/20 00:01 09/07/20 02:18 09/07/20 04:20 09/07/20 04:23 SC-Sqf-W-Type Natriuretic Peptide > 80959 pg/mL (0-124) Glucose (Fingerstick) 270 mg/dL (70-99) 219 mg/dL (70-99) Troponin I Quantitative 0.515 ng/mL (0.000-0.055) Laboratory Tests Test 09/06/20 09:50 09/06/20 23:25 09/06/20 23:34 09/06/20 23:50 White Blood Count 24.6 x10^3/uL (4.0-11.0) 30.0 x10^3/uL (4.0-11.0) Red Blood Count 2.88 x10^6/uL (3.50-5.40) 2.63 x10^6/uL (3.50-5.40) Hemoglobin 9.1 g/dL (12.0-15.5) 8.2 g/dL (12.0-15.5) Hematocrit 27.0 % (36.0-47.0) 25.0 % (36.0-47.0) Mean Corpuscular Volume 94 fL (79-100) 95 fL (79-100) Mean Corpuscular Hemoglobin 31 pg (25-35) 31 pg (25-35) Mean Corpuscular Hemoglobin Concent 34 g/dL (31-37) 33 g/dL (31-37) Red Cell Distribution Width 21.4 % (11.5-14.5) 21.5 % (11.5-14.5) Platelet Count 109 x10^3/uL (140-400) 58 x10^3/uL (140-400) Neutrophils (%) (Auto) 88 % (31-73) 89 % (31-73) Lymphocytes (%) (Auto) 1 % (24-48) 3 % (24-48) Monocytes (%) (Auto) 11 % (0-9) 7 % (0-9) Eosinophils (%) (Auto) 0 % (0-3) 0 % (0-3) Basophils (%) (Auto) 0 % (0-3) 2 % (0-3) Neutrophils # (Auto) 21.5 x10^3/uL (1.8-7.7) 26.7 x10^3/uL (1.8-7.7) Lymphocytes # (Auto) 0.3 x10^3/uL (1.0-4.8) 0.8 x10^3/uL (1.0-4.8) Monocytes # (Auto) 2.6 x10^3/uL (0.0-1.1) 2.0 x10^3/uL (0.0-1.1) Eosinophils # (Auto) 0.1 x10^3/uL (0.0-0.7) 0.1 x10^3/uL (0.0-0.7) Basophils # (Auto) 0.1 x10^3/uL (0.0-0.2) 0.5 x10^3/uL (0.0-0.2) Sodium Level 142 mmol/L (136-145) 140 mmol/L (136-145) Potassium Level 5.0 mmol/L (3.5-5.1) 6.2 mmol/L (3.5-5.1) Chloride Level 106 mmol/L (98-107) 104 mmol/L (98-107) Carbon Dioxide Level 28 mmol/L (21-32) 20 mmol/L (21-32) Anion Gap 8 (6-14) 16 (6-14) Blood Urea Nitrogen 58 mg/dL (7-20) 74 mg/dL (7-20) Creatinine 1.6 mg/dL (0.6-1.0) 2.3 mg/dL (0.6-1.0) Estimated GFR (Cockcroft-Gault) 42.0 27.6 Glucose Level 216 mg/dL (70-99) 261 mg/dL (70-99) Calcium Level 8.4 mg/dL (8.5-10.1) 8.3 mg/dL (8.5-10.1) Glucose (Fingerstick) 261 mg/dL (70-99) O2 Saturation 84 % (92-99) Arterial Blood pH 7.34 (7.35-7.45) Arterial Blood pH (Temp corrected) 7.37 Arterial Blood pCO2 at Patient Temp 37 mmHg (35-46) Arterial Blood pCO2 (Temp correct) 34 mmHg Arterial Blood pO2 at Patient Temp 62 mmHg (75-108) Arterial Blood pO2 (Temp corrected) 55 mmHg Arterial Blood HCO3 20 mmol/L (21-28) Arterial Blood Base Excess -6 mmol/L (-3-3) FiO2 44 BUN/Creatinine Ratio 32 (6-20) Total Bilirubin 3.1 mg/dL (0.2-1.0) Aspartate Amino Transf (AST/SGOT) 214 U/L (15-37) Alanine Aminotransferase (ALT/SGPT) 206 U/L (14-59) Alkaline Phosphatase 397 U/L (46-116) Total Protein 6.8 g/dL (6.4-8.2) Albumin 2.9 g/dL (3.4-5.0) Albumin/Globulin Ratio 0.7 (1.0-1.7) Test 09/07/20 00:01 09/07/20 02:18 09/07/20 04:20 09/07/20 04:23 AP-Mvm-K-Type Natriuretic Peptide > 03180 pg/mL (0-124) Glucose (Fingerstick) 270 mg/dL (70-99) 219 mg/dL (70-99) Troponin I Quantitative 0.515 ng/mL (0.000-0.055) Brief Hospital Course Ms Sorto is a 45yo F w/ PMHx sarcoidosis, HTN who presents with chief complaint of progressive shortness of breath over the past several days. She notes that she is more short of breath than usual with exertion. She denies any shortness of breath at rest. Denies chest pain. Denies syncope. States this feels similar to previous sarcoidosis flares. She does take prednisone daily. She does note that she recently traveled from [place] to visit family in the area, she drove herself. No history of VTE. Denies any swelling to the legs. Denies any known exposure to coronavirus. Denies fevers.Denies any abdominal pain. Denies syncope. Denies any cardiac history or invasive cardiac disease. No nausea no vomiting. Denies diaphoresis. No other complaints. Hypoxic to 73% on room air in ED. She does not wear home O2. CXR with diffuse bilateral interstitial opacities. CTPA negative for PE, did show diffuse groundglass opacities scattered throughout both lungs. During her last hospital stay she was seen in consultation by pulmonology and she was placed on high-dose IV steroids. This was transitioned to an oral taper which apparently has not been taken by the patient. The patient denies any sick contacts between her date of discharge from Monday until today. She denies any fever no chills the patient is exhibiting good inspiratory effort during my interview. Nevertheless her lower extremities seem to be quite weak. According to her boyfriend she seems to have declined during her hospital stay and by the time she was discharged they relate to me that she could barely walk. This was also the reason why she was brought into the emergency department. She has been pretty much bedbound for the last 2 days and she is unable to walk without assistance the patient denied any slurred speech no hemiparesis no hemiplegia no paresthesias reported. She denies dysphagia odynophagia no chest pain palpitations or shortness of breath. She denies nausea vomiting diarrhea, no urinary symptoms. She has had lower extremity edema for a long time and this seems to be related to her steroid therapy which is chronic in nature. 09/05: No acute events reported overnight, case discussed with nursing staff patient in no acute distress no complaints during my visit 09/06: Patient continued to do much better compared to yesterday. Due to worsening oxygen status patient transferred to the intensive care unit overnight low blood pressure drug patient was placed on levo fed in diuretic patient was placed on BiPAP. She was unable to tolerate this. At over [address] elevations are noted on telemetry. EKG 0415 for patient in PEA arrest. ACLS protocol initiated. Patient intubated at 0424 during resuscitative efforts. A total of 6 rounds of epinephrine provided in addition to 1 amp of calcium gluconate and 1 amp of BiCarb. At no time did spontaneous circulation return. Patient's accucheck was 219. Patient with PEA on monitor on all pulse checks. Patient subsequently with frothy bloody sputum consistent for pulmonary contusions secondary to CPR efforts. Decision to terminate further resuscitative efforts due to patient's unchanged/worsening condition by ED physician and with son. Time of called at 0436. Have contacted the dialysis nurse for [facility] and discussed the case and they note that autopsy is not indicated. Body to be released to home for transportation to [place]. A/P: Cardiopulmonary arrest Sirs criteria present on admission most likely secondary to lung pathology Healthcare associated pneumonia? Acute sarcoidosis flareup Steroid induced myopathy pretty much ruled out, patient moving extremities today better than yesterday, CK level noted. NSTEMI and STEMI Essential hypertension Acute renal failure most likely secondary to vasomotor nephropathy present on admission Elevated lactic acid secondary to most likely infectious process Person under investigation for COVID-19 Chronic steroid use Osteoporosis as per the patient Transaminitis which could be reactive versus fatty infiltration Hyperglycemia most likely secondary to steroid use Mild hyperkalemia with no clinical significance and no EKG changes Greater than 30 minutes spent in coordination of family and home Discharge Information Condition at Discharge: / Disposition/Orders: Scheduled Diltiazem HCl (Diltiazem 24Hr ER (LA)) 240 Mg Tab.er.24h, 1 TAB PO DAILY for HTN for 30 Days, #30 Ref 0 (Reported) Entered as Reported by: JOE SULLIVAN on 08/29/20 554 Last Action: Converted on 09/06/20 0837 by BRUCE SOLOMON MD Metoprolol Succinate (Metoprolol Succinate ( Xl )) 100 Mg Tab.er.24h, 1 TAB PO DAILY for HTN, #30 Ref 5 (Reported) Entered as Reported by: JOE SULLIVAN on 08/29/201740 Last Action: Continued on 09/06/20836 by BRUCE SOLOMON MD Norethindrone (Lyza) 0.35 Mg Tablet, 0.35 MG PO DAILY for contraceptive, (Reported) Entered as Reported by: JOE SULLIVAN on 08/29/201750 Last Action: Converted on 09/06/20836 by BRUCE SOLOMON MD Scheduled PRN Levalbuterol HCl (Xopenex) 1.25 Mg/3 Ml Vial.neb, 1 VIAL NEB PRN Q6HRS PRN for SHORTNESS OF BREATH for 20 Days, #60 Ref 0 (Reported) Entered as Reported by: JOE SULLIVAN on 08/29/201743 Last Action: Converted on 09/06/20836 by BRUCE SOLOMON MD Discontinued Medications Prednisone (Prednisone) 5 Mg Tablet, 5 MG PO DAILY for sarcoidosis , (Reported) Entered as Reported by: JOE SULLIVAN on 08/29/201740 Justicifation of Admission Dx: Justifications for Admission: Justification of Admission Dx: Yes Respiratory Failure: Severe Resp Distress ROX CHARLTON MD Sep 07, 2020 09:37
== END 2020-09-07 04:36 | DRG 177 ==
LOC: ER 12:21 → ED HOLD 15:41 → 1 WEST ICU 16:59 → 6 SOUTH 09-06 16:19 → 1 WEST ICU 09-07 00:35
PROVIDERS: ADMIT Internal Medicine; ATTEND Internal Medicine
DX: J15.6 Pneumonia due to other Gram-negative bacteria (principal); J96.21 Acute and chronic respiratory failure with hypoxia; N17.0 Acute kidney failure with tubular necrosis; I21.3 ST elevation (STEMI) myocardial infarction of unspecified site; I46.9 Cardiac arrest, cause unspecified; R65.10 Systemic inflammatory response syndrome (SIRS) of non-infectious origin without acute organ dysfunction; D86.9 Sarcoidosis, unspecified; E87.5 Hyperkalemia; I10 Essential (primary) hypertension; M81.0 Age-related osteoporosis without current pathological fracture; Z20.828 Contact with and (suspected) exposure to other viral communicable diseases; Z79.52 Long term (current) use of systemic steroids; Z88.2 Allergy status to sulfonamides; Z88.8 Allergy status to other drugs, medicaments and biological substances; R73.9 Hyperglycemia, unspecified
CPT/HCPCS: 36415; 36600; 71045; 80048; 80053; 82550; 82805; 82962; 83605; 83880; 84145; 84484; 85007; 85025; 86140; 87040; 93005; 94660; 96365; 96367; 96375; 99285; J0171; J1650; J1940; J2060; J2270; J2543; J2930; J3370; J3490; J7030; J7040; J7060; G0378; U0003-CS